=== PATIENT | female | born 1965 | race Hispanic/Latino ===

== ENCOUNTER 2018-10-20 14:38 | Inpatient (IN) | payer MEDICARE, OTHER ==
[~2018-10-20] VITALS: Ht 154.9 cm; Wt 140.6 kg
--- OUTSIDE RECORDS SUMMARY | 2018-10-20 15:04 | XMS REPORT ---
Author Author Maria Mayen Organization [employer] Address Unknown Phone Unavailable Care Team Providers Care Kettle Worker Name Role Phone Maria Mayen CP Unavailable Allergies No Known Allergies Problems Problem Type Condition Code Onset Dates Condition Status Problem BMI 50.0-59.9, adult Z68.43 Active Problem Vaginal yeast infection B37.3 Active Problem Anxiety F41.9 Active Problem PAD (peripheral artery disease) I73.9 Active Problem Anxiety and depression F41.8 Active Problem Poorly controlled diabetes mellitus E11.65 Active Problem Neuropathy G62.9 Active Problem Peripheral neuropathy G62.9 Active Problem Primary osteoarthritis of left hip M16.12 Active Problem Morbid obesity due to excess calories E66.01 Active Problem Hyperlipidemia, unspecified E78.5 Active Problem 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
--- OUTSIDE RECORDS SUMMARY | 2018-10-20 15:04 | XMS REPORT ---
Author Author Maria Mayen Organization [employer] Address Unknown Phone Unavailable Care Team Providers Care Panama Hat Blocker Name Role Phone Maria Mayen CP Unavailable [...]
--- OUTSIDE RECORDS SUMMARY | 2018-10-20 15:05 | XMS REPORT ---
Author Author Maria Mayen [facility] [place] eClinicalWorks Address Unknown Phone Unavailable Care Team Providers Care Manager Athletics Name Role Phone Maria Mayen CP Unavailable Encounters Encounter Location Date Unknown [place] Jan 26, 2016 3 MONTH F/U [place] Jan 20, 2016 Consult Sh[place] Cast[place] Mar 13, 2016 Unknown [place] Mar 26, 2016 Consult [place] November 30, 2015 Unknown [place] Jan 13, 2016 Unknown [place] Jan 13, 2016 walker [place] Apr 05, 2016 Unknown [place] Apr 20, 2016 Problems Problem Type Condition ICD-9 Code Onset Dates Condition Status Problem Essential (primary) hypertension I10 Active Problem Hyperlipidemia, unspecified E78.5 Active Problem Vaginal yeast infection B37.3 Active Problem Anxiety F41.9 Active Problem Peripheral neuropathy G62.9 Active Problem Incontinence in female N39.3 Active Problem 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.8 Active Problem JENNI (obstructive sleep apnea) G47.33 Active Problem BMI 50.0-59.9, adult Z68.43 Active Social History Social History Element Qualifiers Date Reported Use of recreational / street drugs? . Answer: No Apr 20, 2016 Sexual Hx: . Had sex in the last 12 months (vaginal, oral, or anal)?: No, Have you ever had an STD?: No Apr 20, 2016 Do you have pets? . Status: Yes, Type: dog(s) Apr 20, 2016 Tobacco Use: . Are you a: former smoker 2 YRS AGO Apr 20, 2016 Marital Status: . Single Apr 20, 2016 Caffeine intake? . Status: Yes, What type: Coffee, 1 - 2 cup(s) a day Apr 20, 2016 Do you exercise? . Answer: No Apr 20, 2016 Do you drink alcohol? . Status: No Apr 20, 2016 Travel outside [place]: . no Apr 20, 2016 Occupation: . disable Apr 20, 2016 Summary Purpose eClinicalWorks Submission
--- OUTSIDE RECORDS SUMMARY | 2018-10-20 15:05 | XMS REPORT ---
Author Author Maria Mayen [facility] e[employer]Works Address Unknown Phone Unavailable Care Team Providers Care Literary Writer Name Role Phone Maria Mayen CP Unavailable Allergies, Adverse Reactions, Alerts Substance Reaction Event Type N.K.D.A. Info Not Available Non Drug Allergy Encounters Encounter Location Date Unknown [place] Jan 26, 2016 3 MONTH F/U [place] Jan 20, 2016 Consult Sh[place] Mar 13, 2016 Consult Sh[place], [place] November 30, 2015 Unknown [place] Cast[place] Jan 13, 2016 Unknown [place] Jan 13, 2016 Problems Problem Type Condition ICD-9 Code Onset Dates Condition Status Assessment Primary osteoarthritis of left hip M16.12 Active Problem Essential (primary) hypertension I10 Active Problem Hyperlipidemia, unspecified E78.5 Active Problem Vaginal yeast infection B37.3 Active Problem Anxiety F41.9 Active Problem Peripheral neuropathy G62.9 Active Problem Incontinence in female N39.3 Active Problem 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.8 Active Problem JENNI (obstructive sleep apnea) G47.33 Active Problem BMI 50.0-59.9, adult Z68.43 Active Assessment Hyperlipidemia, unspecified E78.5 Active Assessment Essential (primary) hypertension I10 Active Assessment Peripheral neuropathy G62.9 Active Assessment Anxiety F41.9 Active Assessment 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.8 Active Medications Medication Code System Code Instructions Start Date End Date Status Dosage Sertraline HCl [facility] [address]-29 50 MG Orally Once a day Mar 13, 2016 Inactive 1 tablet Lisinopril [facility] [address]-72 5 MG Orally Once a day Jan 20, 2016 Active 1 tablet Simvastatin [facility] [address]-56 40 MG Orally Once a day Active 1 tablet in the evening Levemir [facility] [address]-05 100 UNIT/ML Subcutaneous 34 units BID Active as directed Pantoprazole Sodium [facility] [address]-50 40 mg Orally Once a day Jan 13, 2016 Active 1 tablet Januvia [facility] [address]-26 100 MG Orally Once a day Active 1 tablet Niacin [facility] 22384063450 500 Active TAKE 1 TABLET BY MOUTH EVERY DAY Canagliflozin [facility] [address]-31 100 mg Orally Once a day Jan 20, 2016 Mar 13, 2016 Inactive 1 tablet Acetaminophen-Codeine #3 [facility] [address]-23 300-30 MG Orally twice a day (bid) as needed (prn) Mar 13, 2016 Apr 12, 2016 Active 1 tablet as needed Sertraline HCl [facility] [address]-27 100 MG Orally Once a day Mar 13, 2016 Active 1 tablet Canagliflozin [facility] [address]-26 300 MG Orally Once a day Mar 13, 2016 Jun 11, 2016 Active 1 tablet NovoLog Flexpen [facility] [address]-18 100 UNIT/ML Subcutaneous three times a day (tid) Active as directed Calcium [facility] 59143-14399 600 MG Orally Twice a day Active 1 tablet with meals Ferrous Sulfate [facility] [address]-95 325 (65 Fe) MG Orally Once a day Active 1 tablet Hydrochlorothiazide [facility] [address]-03 12.5 MG Orally Once a day Mar 13, 2016 Active 1 tablet Gabapentin [facility] [address]-69 300 MG by mouth once every night Active 1 capsule Social History Social History Element Qualifiers Date Reported Use of recreational / street drugs? . Answer: No Mar 13, 2016 Sexual Hx: . Had sex in the last 12 months (vaginal, oral, or anal)?: No, Have you ever had an STD?: No Mar 13, 2016 Do you have pets? . Status: Yes, Type: dog(s) Mar 13, 2016 Tobacco Use: . Are you a: former smoker 2 YRS AGO Mar 13, 2016 Marital Status: . Single Mar 13, 2016 Caffeine intake? . Status: Yes, What type: Coffee, 1 - 2 cup(s) a day Mar 13, 2016 Do you exercise? . Answer: No Mar 13, 2016 Do you drink alcohol? . Status: No Mar 13, 2016 Travel outside [place]: . no Mar 13, 2016 Occupation: . disable Mar 13, 2016 Vital Signs Date/Time: Mar 13, 2016 Weight 293 lbs Height 62 in Temperature 97.2 F Blood Pressure Diastolic 74 mm Hg Blood Pressure Systolic 111 mm Hg Immunizations Vaccine Administration Date Influenza Mar 13, 2016 Summary Purpose eClinicalWorks Submission
--- OUTSIDE RECORDS SUMMARY | 2018-10-20 15:05 | XMS REPORT ---
Author Author Maria Mayen Organization [employer] Address Unknown Phone Unavailable Care Team Providers Care Provisioning Analyst Name Role Phone Maria Mayen CP Unavailable Allergies, Adverse Reactions, Alerts Substance Reaction Event Type N.K.D.A. Info Not Available Non Drug Allergy Encounters Encounter Location Date Unknown [facility] Jan 26, 2016 3 MONTH F/U [place] Jan 20, 2016 Consult Shaji Castell[place], [place] November 30, 2015 Unknown [place] Jan 13, 2016 Unknown [place] Jan 13, 2016 Problems Problem Type Condition ICD-9 Code Onset Dates Condition Status Assessment 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.8 Active Problem Essential (primary) hypertension I10 Active Problem Hyperlipidemia, unspecified E78.5 Active Problem Vaginal yeast infection B37.3 Active Problem Anxiety F41.9 Active Problem Peripheral neuropathy G62.9 Active Problem Incontinence in female N39.3 Active Problem 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.8 Active Problem JENNI (obstructive sleep apnea) G47.33 Active Problem BMI 50.0-59.9, adult Z68.43 Active Assessment Anxiety F41.9 Active Assessment BMI 50.0-59.9, adult Z68.43 Active Assessment Hyperlipidemia, unspecified E78.5 Active Assessment Essential (primary) hypertension I10 Active Medications Medication Code System Code Instructions Start Date End Date Status Dosage Ferrous Sulfate [facility] [address]-55 325 (65 Fe) MG Orally Once a day Active 1 tablet NovoLog Flexpen [facility] [address]-41 100 UNIT/ML Subcutaneous three times a day (tid) Active as directed Pantoprazole Sodium [facility] [address]-74 40 mg Orally Once a day Jan 13, 2016 Active 1 tablet Simvastatin [facility] [address]-09 40 MG Orally Once a day Active 1 tablet in the evening Lisinopril [facility] [address]-77 5 MG Orally Once a day Jan 20, 2016 Active 1 tablet Gabapentin [facility] [address]-37 300 MG by mouth once every night Active 1 capsule Levemir [facility] [address]-16 100 UNIT/ML Subcutaneous 34 units BID Active as directed Niacin [facility] 66853909293 500 Active TAKE 1 TABLET BY MOUTH EVERY DAY Fluconazole [facility] [address]-83 100 mg Orally once a day November 30, 2015 Feb 28, 2016 Active 1 tablet Sertraline HCl [facility] [address]-52 50 MG Orally Once a day Active 1 tablet Canagliflozin [facility] [address]-53 100 mg Orally Once a day Jan 20, 2016 Apr 19, 2016 Active 1 tablet Calcium [facility] 30330-11430 600 MG Orally Twice a day Active 1 tablet with meals Januvia [facility] [address]-54 100 MG Orally Once a day Active 1 tablet Social History Social History Element Qualifiers Date Reported Use of recreational / street drugs? . Answer: No Jan 20, 2016 Sexual Hx: . Had sex in the last 12 months (vaginal, oral, or anal)?: No, Have you ever had an STD?: No Jan 20, 2016 Do you have pets? . Status: Yes, Type: dog(s) Jan 20, 2016 Tobacco Use: . Are you a: former smoker 2 YRS AGO Jan 20, 2016 Marital Status: . Single Jan 20, 2016 Caffeine intake? . Status: Yes, What type: Coffee, 1 - 2 cup(s) a day Jan 20, 2016 Do you exercise? . Answer: No Jan 20, 2016 Do you drink alcohol? . Status: No Jan 20, 2016 Travel outside [place]: . no Jan 20, 2016 Occupation: . disable Jan 20, 2016 Vital Signs Date/Time: Jan 20, 2016 Weight 295 lbs Height 62 in Temperature 97.5 F Blood Pressure Diastolic 91 mm Hg Blood Pressure Systolic 134 mm Hg Summary Purpose eClinicalWorks Submission
--- OUTSIDE RECORDS SUMMARY | 2018-10-20 15:05 | XMS REPORT ---
Author Author Maria Mayen [facility] eClinicalWorks Address Unknown Phone Unavailable Care Team Providers Care Relationship Manager Name Role Phone Maria Mayen Unavailable Encounters Encounter Location Date Unknown Shaji [...] ICD-9 Code Onset Dates Condition Status Assessment Essential (primary) hypertension I10 Active Problem Essential (primary) hypertension I10 Active [...] 2016 Occupation: . disable Mar 13, 2016 Summary Purpose eClinicalWorks Submission
--- OUTSIDE RECORDS SUMMARY | 2018-10-20 15:05 | XMS REPORT ---
Author Author Maria Mayen [facility] eClinicalWorks Address Unknown Phone Unavailable Care Team Providers Care It Associate Name Role Phone Maria Mayen Unavailable Allergies, Adverse Reactions, Alerts Substance Reaction [...] [place] Cast[place], [place] Jan 13, 2016 3 Month Follow up Sh[facility] Cast[place], [place] Apr 20, 2016 walker Shaji Castell[place], [place] Apr 05, 2016 Unknown [facility], [place] Apr 20, 2016 New Refill Request Sh[place] Jul 06, 2016 New Refill Request Sh[place], [place] Jul 06, 2016 referral for my stomach Dr [place] Jun 20, 2016 New Refill Request [place] Jun 20, 2016 New Refill Request Sh[facility] Castell[place], [place] Jun 20, 2016 Unknown Shaji [place]ell[place] Jun 26, 2016 Sick Visit Shaji Castell[place], [place] May 22, 2016 Unknown Sh[place]ell[place] Jun 15, 2016 Sick Visit Shaji Castell[place], [place] Jul 19, 2016 Problems Problem Type Condition ICD-9 Code Onset Dates Condition Status Problem Essential (primary) hypertension I10 Active Problem Incontinence in female N39.3 Active Problem 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.8 Active Problem Neuropathy G62.9 Active Problem Peripheral neuropathy G62.9 Active Problem Morbid obesity due to excess calories E66.01 Active Problem JENNI (obstructive sleep apnea) G47.33 Active Problem BMI 50.0-59.9, adult Z68.43 Active Problem Vaginal yeast infection B37.3 Active Problem Anxiety F41.9 Active Assessment Fatty pancreas K86.89 Active Assessment Hyperlipidemia, unspecified E78.5 Active Assessment Essential (primary) hypertension I10 Active Assessment Morbid obesity due to excess calories E66.01 Active Assessment 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.8 Active Assessment JENNI (obstructive sleep apnea) G47.33 Active Problem Hyperlipidemia, unspecified E78.5 Active Medications Medication Code System Code Instructions Start Date End Date Status Dosage Hydrochlorothiazide [facility] 28982515635 12.5 MG Orally Once a day Active 1 tablet Gabapentin [facility] 76996762381 300 Active TAKE 1 CAPSULE BY MOUTH EVERY NIGHT NovoLog Flexpen [facility] [address]-95 100 UNIT/ML Subcutaneous TID as per sliding scale Apr 20, 2016 Active as directed Januvia [facility] [address]-51 100 MG Orally Once a day Active 1 tablet Sertraline HCl [facility] [address]-10 100 MG Orally Once a day Mar 13, 2016 Active 1 tablet Ibuprofen [facility] 15248316592 800 Active TAKE 1 TABLET BY MOUTH TWICE DAILY FOR 90 DAYS Invokana [facility] 61147298607 300 Orally Once a day Jan 15, 2017 Active take 1 tablet by mouth every day Lisinopril [facility] [address]-63 5 MG Orally Once a day Jan 20, 2016 Active 1 tablet Simvastatin [facility] [address]-15 40 MG Orally Once a day Active 1 tablet in the evening Levemir [facility] [address]-79 100 UNIT/ML Subcutaneous 34 units BID Active as directed Pantoprazole Sodium [facility] [address]-21 40 mg Orally Once a day Jan 13, 2016 Active 1 tablet Gabapentin [facility] [address]-14 300 MG by mouth twice a day (bid) Active 1 capsule Lisinopril [facility] 23879826238 5 Active TAKE 1 TABLET BY MOUTH DAILY Calcium [facility] 955[address]-47006 600 MG Orally Twice a day Active 1 tablet with meals Ferrous Sulfate [facility] [address]-26 325 (65 Fe) MG Orally Once a day Active 1 tablet Social History Social History Element Qualifiers Date Reported Use of recreational / street drugs? . Answer: No Jul 19, 2016 Sexual Hx: . Had sex in the last 12 months (vaginal, oral, or anal)?: No, Have you ever had an STD?: No Jul 19, 2016 Do you have pets? . Status: Yes, Type: dog(s) Jul 19, 2016 Tobacco Use: . Are you a: former smoker 2 YRS AGO Jul 19, 2016 Marital Status: . Single Jul 19, 2016 Caffeine intake? . Status: Yes, What type: Coffee, 1 - 2 cup(s) a day Jul 19, 2016 Do you exercise? . Answer: No Jul 19, 2016 Do you drink alcohol? . Status: No Jul 19, 2016 Travel outside [place]: . no Jul 19, 2016 Occupation: . disable Jul 19, 2016 Family history Qualifier Description Comment Date Reported Maternal Grandmother Comment not available Jul 19, 2016 Paternal Grandmother Comment not available Jul 19, 2016 Children Comment not available Jul 19, 2016 Maternal Grandfather Comment not available Jul 19, 2016 Father accident Jul 19, 2016 Brother(s) alive Comment not available Jul 19, 2016 Mother aspirated on potassium pill Jul 19, 2016 Paternal Grandfather Comment not available Jul 19, 2016 Sister(s) alive cervical cancer, uterine cancer Jul 19, 2016 Other: Comment not available Jul 19, 2016 General Family History Comment not available Jul 19, 2016 Vital Signs Date/Time: Jul 19, 2016 Weight 304 lbs Height 62 in Temperature 96.8 F Blood Pressure Diastolic 72 mm Hg Blood Pressure Systolic 119 mm Hg Summary Purpose eClinicalWorks Submission
--- OUTSIDE RECORDS SUMMARY | 2018-10-20 15:05 | XMS REPORT ---
Author Author Maria Mayen Organization eClinicalWorks Address Unknown Phone Unavailable Care Team Providers Care Layout Operator Name Role Phone Maria Mayen CP Unavailable Encounters Encounter Location Date Consult [facility] [place], [place] November 30, 2015 Unknown [facility] [place] Jan 13, 2016 Problems Problem Type Condition ICD-9 Code Onset Dates Condition Status Problem Hyperlipidemia, unspecified E78.5 Active Problem Vaginal yeast infection B37.3 Active Problem JENNI (obstructive sleep apnea) G47.33 Active Problem Peripheral neuropathy G62.9 Active Problem 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.8 Active Problem Essential (primary) hypertension I10 Active Problem BMI 50.0-59.9, adult Z68.43 Active Problem Incontinence in female N39.3 Active Medications Medication Code System Code Instructions Start Date End Date Status Dosage Pantoprazole Sodium [facility] [address]-96 40 mg Orally Once a day Jan 13, 2016 Active 1 tablet Social History Social History Element Qualifiers Date Reported Use of recreational / street drugs? . Answer: No November 30, 2015 Sexual Hx: . Had sex in the last 12 months (vaginal, oral, or anal)?: No, Have you ever had an STD?: No November 30, 2015 Do you have pets? . Status: Yes, Type: dog(s) November 30, 2015 Tobacco Use: . Are you a: former smoker 2 YRS AGO November 30, 2015 Marital Status: . Single November 30, 2015 Caffeine intake? . Status: Yes, What type: Coffee, 1 - 2 cup(s) a day November 30, 2015 Do you exercise? . Answer: No November 30, 2015 Do you drink alcohol? . Status: No November 30, 2015 Travel outside [place]: . no November 30, 2015 Occupation: . disable November 30, 2015 Summary Purpose eClinicalWorks Submission
--- OUTSIDE RECORDS SUMMARY | 2018-10-20 15:05 | XMS REPORT ---
Author Author Maria Mayen [facility] [place] eClinicalWorks Address Unknown Phone Unavailable Care Team Providers Care Chef Saucier Name Role Phone Maria Mayen Unavailable Encounters [...] [place], [place] Apr 20, 2016 referral for [address] stomach Dr [place] Jun 20, 2016 New Refill Request Shaji Castellano MD, [place] Jun 20, 2016 Unknown Shaji Castellano [place], [place] Jun 26, 2016 Sick Visit Shaji Castellano MD, [place] May 22, 2016 Unknown Shaji Castellano [place], [place] Jun 15, 2016 Problems Problem Type Condition ICD-9 Code Onset Dates Condition Status Problem Hyperlipidemia, unspecified E78.5 Active Problem 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.8 Active Problem Essential (primary) hypertension I10 Active Problem Peripheral neuropathy G62.9 Active Problem Vaginal yeast infection B37.3 Active Problem Neuropathy G62.9 Active Problem BMI 50.0-59.9, adult Z68.43 Active Problem Incontinence in female N39.3 Active Problem Anxiety F41.9 Active Problem JENNI (obstructive sleep apnea) G47.33 Active Social History Social History Element Qualifiers Date Reported Use of recreational / street drugs? . Answer: No May 22, 2016 Sexual Hx: . Had sex in the last 12 months (vaginal, oral, or anal)?: No, Have you ever had an STD?: No May 22, 2016 Do you have pets? . Status: Yes, Type: dog(s) May 22, 2016 Tobacco Use: . Are you a: former smoker 2 YRS AGO May 22, 2016 Marital Status: . Single May 22, 2016 Caffeine intake? . Status: Yes, What type: Coffee, 1 - 2 cup(s) a day May 22, 2016 Do you exercise? . Answer: No May 22, 2016 Do you drink alcohol? . Status: No May 22, 2016 Travel outside [place]: . no May 22, 2016 Occupation: . disable May 22, 2016 Summary Purpose eClinicalWorks Submission
--- OUTSIDE RECORDS SUMMARY | 2018-10-20 15:05 | XMS REPORT ---
Author Author Maria Mayen Organization [employer] Address Unknown Phone Unavailable Care Team Providers Care Consumer Marketing Manager Name Role Phone Maria Mayen CP Unavailable Allergies, Adverse Reactions, Alerts Substance Reaction Event Type N.K.D.A. Info Not Available Non Drug Allergy Problems Problem Type Condition Code Onset Dates Condition Status Problem Vaginal yeast infection B37.3 Active Problem Neuropathy G62.9 Active Problem Peripheral neuropathy G62.9 Active Problem Psoriasis L40.9 Active Assessment Essential (primary) hypertension I10 Active Problem Poorly controlled diabetes mellitus E11.65 Active Assessment Hyperlipidemia, unspecified E78.5 Active Problem Seasonal allergic rhinitis due to pollen J30.1 Active Problem Primary osteoarthritis of left hip M16.12 Active Problem Morbid obesity due to excess calories E66.01 Active Problem PAD (peripheral artery disease) I73.9 Active Problem Anxiety and depression F41.8 Active Assessment Psoriasis L40.9 Active Problem Essential (primary) hypertension I10 Active Assessment 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.8 Active Assessment Seasonal allergic rhinitis due to pollen J30.1 Active Problem Incontinence in female N39.3 Active Problem JENNI (obstructive sleep apnea) G47.33 Active Problem Hyperlipidemia, unspecified E78.5 Active Problem BMI 50.0-59.9, adult Z68.43 Active Problem 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.8 Active Problem Anxiety F41.9 Active Medications Medication Code System Code Instructions Start Date End Date Status Dosage Sertraline HCl [facility] 15305860827 50 MG Active 1 TABLET ONCE A DAY ORALLY 90 DAYS NovoLog Flexpen ND 07792320781 100 UNIT/ML Subcutaneous TID as per sliding scale Apr 20, 2016 Active as directed BuPROPion HCl [facility] 56389925314 75 MG Orally twice a day (bid) Feb 27, 2017 Active 1 tablet Lisinopril [facility] 87182756087 5 MG Orally Once a day Jan 20, 2016 Active 1 tablet Januvia [facility] 87927369042 100 MG Orally daily Active 1 TABLET ONCE A DAY ORALLY 90 DAYS Pantoprazole Sodium [facility] 42366940515 40 mg Active 1 TABLET ONCE A DAY ORALLY 90 DAYS Ferrous Sulfate [facility] 24020586459 325 (65 Fe) MG Orally Once a day Active 1 tablet Sertraline HCl [facility] 16508107842 50 Active 1 TABLET ONCE A DAY ORALLY 90 DAYS Simvastatin [facility] 88066950426 40 Active TAKE 1 TABLET BY MOUTH EVERY DAY IN THE EVENING Humalog [facility] 83713112699 100 UNIT/ML Subcutaneous three times a day August 31, 2016 Active as directed Pantoprazole Sodium [facility] 54094125007 40 mg Orally Once a day Jan 13, 2016 Active 1 tablet Simvastatin [facility] 31145838857 40 MG Orally Once a day Active 1 tablet in the evening Invokana [facility] 53191569314 300 MG Orally Once a day Active 1 tablet Hydrochlorothiazide [facility] 04076687454 12.5 MG Orally Once a day Active 1 tablet Levemir [facility] 74153018670 100 UNIT/ML Subcutaneous 50 units BID Active as directed Gabapentin [facility] 18778385665 300 MG by mouth twice a day (bid) Active 1 capsule Calcium [facility] 67488898674 600 MG Orally Twice a day Active 1 tablet with meals Ibuprofen [facility] 35089593840 800 Active TAKE 1 TABLET BY MOUTH TWICE DAILY FOR 90 DAYS Vital Signs Date/Time: August 14, 2017 BMI 52.67 Index Weight 288 lbs Height 62 in Temperature 98.3 F Blood Pressure Diastolic 100 mm Hg Blood Pressure Systolic 156 mm Hg Results No Known Results Summary Purpose [employer] Submission
--- OUTSIDE RECORDS SUMMARY | 2018-10-20 15:05 | XMS REPORT ---
Author Author Maria Mayen [facility] e[employer] Address Unknown Phone Unavailable Care Team Providers Care Toe Closing Machine Tender Name Role Phone Maria Mayen Unavailable Encounters Encounter Location Date Unknown [facility] [place] Jan 26, 2016 3 MONTH F/U [facility] [place] Jan 20, 2016 Consult [facility] [place] Mar 13, 2016 Unknown [facility] [place] Mar 26, 2016 Consult [facility] [place] November 30, 2015 Sick Visit [facility] [place] [place] May 22, 2016 Unknown [facility] [place] Jan 13, 2016 Unknown [facility] [place] [place] Jun 15, 2016 Unknown [facility] Jan [...]
--- OUTSIDE RECORDS SUMMARY | 2018-10-20 15:05 | XMS REPORT ---
Author Author Maria Mayen Organization [employer] Address Unknown Phone Unavailable Care Team Providers Care Oil Field Operator Name Role Phone Maria Mayen CP Unavailable Allergies No Known Allergies Problems Problem Type Condition Code Onset Dates Condition Status Problem Essential (primary) hypertension I10 Active Problem Incontinence in female N39.3 Active Problem 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.8 Active Problem Hyperlipidemia, unspecified E78.5 Active Problem Neuropathy G62.9 Active Problem Peripheral neuropathy G62.9 Active Problem Morbid obesity due to excess calories E66.01 Active Problem JENNI (obstructive sleep apnea) G47.33 Active Problem BMI 50.0-59.9, adult Z68.43 Active Problem Vaginal yeast infection B37.3 Active Problem Anxiety F41.9 Active Medications Medication Code System Code Instructions Start Date End Date Status Dosage Humalog [facility] [address]-90 100 UNIT/ML Subcutaneous three times a day August 31, 2016 Active as directed Results No Known Results Summary Purpose [employer]Works Submission
--- OUTSIDE RECORDS SUMMARY | 2018-10-20 15:05 | XMS REPORT ---
Author Author Maria Mayen Organization [employer] Address Unknown Phone Unavailable Care Team Providers Care Oncology Specialist Name Role Phone Maria Mayen CP Unavailable [...] Active Problem Incontinence in female N39.3 Active Social History Social History Element Qualifiers [...]
--- OUTSIDE RECORDS SUMMARY | 2018-10-20 15:05 | XMS REPORT ---
Author Author Maria Mayen Organization [employer] Address Unknown Phone Unavailable Care Team Providers Care News Library Director Name Role Phone Maria Mayen CP Unavailable Allergies, Adverse Reactions, Alerts Substance Reaction Event Type N.K.D.A. Info Not Available Non Drug Allergy Encounters Encounter Location Date Consult [facility] November 30, 2015 Problems Problem Type Condition ICD-9 Code Onset Dates Condition Status Assessment Essential (primary) hypertension I10 Active Problem Hyperlipidemia, unspecified E78.5 Active Assessment 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.8 Active Assessment Vaginal yeast infection B37.3 Active Assessment Peripheral neuropathy G62.9 Active Problem Vaginal yeast [...] Instructions Start Date End Date Status Dosage Gabapentin [facility] [address]-49 300 MG by mouth once every night Active 1 capsule Sertraline HCl [facility] [address]-89 50 MG Orally Once a day Active 1 tablet Ibuprofen [facility] [address]-78 800 MG Orally twice a day (bid) November 30, 2015 Inactive 1 tablet Levemir [facility] [address]-77 100 UNIT/ML Subcutaneous 34 units BID Active as directed Fluconazole [facility] [address]-43 100 mg Orally once a day November 30, 2015 Feb 28, 2016 Active 1 tablet Simvastatin [facility] [address]-02 40 MG Orally Once a day Active 1 tablet in the evening Ferrous Sulfate [facility] [address]-05 325 (65 Fe) MG Orally Once a day Active 1 tablet Niacin [facility] 67746457040 500 Active TAKE 1 TABLET BY MOUTH EVERY DAY Calcium [facility] 97410-79058 600 MG Orally Twice a day Active 1 tablet with meals NovoLog Flexpen [facility] [address]-90 100 UNIT/ML Subcutaneous Active as directed Meloxicam [facility] [address]-55 15 MG Orally Once a day November 30, 2015 December 30, 2015 Active 1 tablet Januvia [facility] [address]-21 100 MG Orally Once a day Active [...] 2015 Occupation: . disable November 30, 2015 Vital Signs Date/Time: November 30, 2015 Weight 294 lbs Height 62 in Temperature 96.5 F Summary Purpose eClinicalWorks Submission
--- OUTSIDE RECORDS SUMMARY | 2018-10-20 15:05 | XMS REPORT ---
Author Author Maria Mayen Organization [employer] Address Unknown Phone Unavailable Care Team Providers Care Validation Manager Name Role Phone Maria Mayen CP Unavailable Encounters Encounter Location Date Unknown [facility] Jan 26, 2016 Consult Shaji Castellano [place], [place] [...] 2016 Occupation: . disable Jan 20, 2016 Summary Purpose [employer] Submission
--- OUTSIDE RECORDS SUMMARY | 2018-10-20 15:05 | XMS REPORT ---
Author Author Maria Mayen [facility] e[employer] Address Unknown Phone Unavailable Care Team Providers Care Leasing Consultant Name Role Phone Maria Mayen Unavailable Encounters [...] Jun 20, 2016 New Refill Request [facility] [place] Jun 20, 2016 Unknown Shaji [...] JENNI (obstructive sleep apnea) G47.33 Active Medications Medication Code System Code Instructions Start Date End Date Status Dosage Hydrochlorothiazide [facility] 65265229086 12.5 MG Orally Once a day Active [...]
--- OUTSIDE RECORDS SUMMARY | 2018-10-20 15:05 | XMS REPORT ---
Author Author Maria Mayen [facility] e[employer] Address Unknown Phone Unavailable Care Team Providers Care Retread Operator Name Role Phone Maria Mayen CP [...] Problem BMI 50.0-59.9, adult Z68.43 Active Assessment JENNI (obstructive sleep apnea) G47.33 Active Assessment Essential (primary) hypertension I10 Active Assessment Vaginal yeast infection B37.3 Active Assessment Peripheral neuropathy G62.9 Active Assessment BMI 50.0-59.9, adult Z68.43 Active Medications Medication Code System Code Instructions Start Date End Date Status Dosage Ferrous Sulfate [facility] [address]-86 325 (65 Fe) MG Orally Once a day Active 1 tablet Calcium [facility] 24483-32291 600 MG Orally Twice a day Active 1 tablet with meals Invokana [facility] 65800254136 300 Active TAKE 1 TABLET BY MOUTH EVERY DAY Canagliflozin [facility] [address]-32 300 MG Orally Once a day Mar 13, 2016 Jun 11, 2016 Active 1 tablet Lisinopril [facility] 54483322812 5 Orally Once a day Active 1 tablet Gabapentin [facility] [address]-80 300 MG by mouth once every night Active 1 capsule Ibuprofen [facility] 15642848845 800 Active TAKE 1 TABLET BY MOUTH TWICE DAILY FOR 90 DAYS Sertraline HCl [facility] [address]-93 100 MG Orally Once a day Mar 13, 2016 Active 1 tablet Pantoprazole Sodium [facility] [address]-59 40 mg Orally Once a day Jan 13, 2016 Active 1 tablet Simvastatin [facility] [address]-32 40 MG Orally Once a day Active 1 tablet in the evening NovoLog Flexpen [facility] [address]-64 100 UNIT/ML Subcutaneous three times a day (tid) Apr 20, 2016 Inactive as directed tree times a days as per sliding scale [facility]ia [facility] [address]-56 100 MG Orally Once a day Active 1 tablet Hydrochlorothiazide [facility] 78395869698 12.5 MG Orally Once a day Active 1 tablet NovoLog Flexpen [facility] [address]-80 100 UNIT/ML Subcutaneous TID as per sliding scale Apr 20, 2016 Active as directed Levemir [facility] [address]-47 100 UNIT/ML Subcutaneous 34 units BID Active as directed Lisinopril [facility] [address]-09 5 MG Orally Once a day Jan 20, 2016 Active 1 tablet Social History Social [...] 2016 Occupation: . disable Apr 20, 2016 Vital Signs Date/Time: Apr 20, 2016 Weight 290 lbs Height 62 in Temperature 97.6 F Blood Pressure Diastolic 71 mm Hg Blood Pressure Systolic 109 mm Hg Summary Purpose eClinicalWorks Submission
--- OUTSIDE RECORDS SUMMARY | 2018-10-20 15:05 | XMS REPORT ---
Author Author Maria Mayen [facility] [employer] Address Unknown Phone Unavailable Care Team Providers Care Executive Meeting Manager Name Role Phone Maria Mayen CP [...] Shaji Castellano [place], [place] Apr 05, 2016 Problems Problem Type Condition ICD-9 Code [...]
--- OUTSIDE RECORDS SUMMARY | 2018-10-20 15:05 | XMS REPORT ---
Author Author Maria Mayen [facility] [employer] Address Unknown Phone Unavailable Care Team Providers Care Quality Systems Engineer Name Role Phone Maria Mayen Unavailable Encounters [...] Castellano [place], [place] Jun 20, 2016 Unknown Shjai Castellano [place], [place] Jun 26, 2016 Sick [...]
--- OUTSIDE RECORDS SUMMARY | 2018-10-20 15:05 | XMS REPORT ---
Author Author Maria Mayen [facility] [employer] Address Unknown Phone Unavailable Care Team Providers Care Research Technician Name Role Phone Maria Mayen Unavailable Encounters [...] Instructions Start Date End Date Status Dosage Lisinopril [facility] 36631696116 5 Orally Once a day Active 1 [...]
--- OUTSIDE RECORDS SUMMARY | 2018-10-20 15:05 | XMS REPORT ---
Author Author Maria Mayen [facility] eClinicalWorks Address Unknown Phone Unavailable Care Team Providers Care Fur Plucker Name Role Phone Maria Mayen Unavailable Encounters [...] [facility] [place], [place] Apr 20, 2016 Unknown Shaji Castellano [place], [place] Aug 06, 2016 walker Shaji Castellano MD, [place] Apr [...] Instructions Start Date End Date Status Dosage Invokanubia [facility] 61915620554 300 Orally Once a day Jan 15, 2017 Active take 1 tablet by mouth every day Social History Social History Element Qualifiers Date [...] 2016 Occupation: . disable Jul 19, 2016 Summary Purpose eClinicalWorks Submission
--- OUTSIDE RECORDS SUMMARY | 2018-10-20 15:05 | XMS REPORT ---
Author Author Maria Mayen [facility] eClinical[employer] Address Unknown Phone Unavailable Care Team Providers Care Research Technologist Name Role Phone Maria Mayen Unavailable Encounters [...] Shaji Castellano [place], [place] Jun 20, 2016 Sick Visit Shaji Castellano MD, [place] [...]
--- OUTSIDE RECORDS SUMMARY | 2018-10-20 15:05 | XMS REPORT ---
Author Author Maria Mayen [facility] [employer]Works Address Unknown Phone Unavailable Care Team Providers Care Trade Analyst Name Role Phone Maria Mayen Unavailable Encounters [...]
--- OUTSIDE RECORDS SUMMARY | 2018-10-20 15:05 | XMS REPORT ---
Author Author Maria Mayen [facility] [employer] Address Unknown Phone Unavailable Care Team Providers Care Bleacher Pulp Name Role Phone Maria Mayen CP Unavailable [...] Problem JENNI (obstructive sleep apnea) G47.33 Active Assessment Pancreatic mass K86.9 Active Assessment Neuropathy G62.9 Active Assessment BMI 50.0-59.9, adult Z68.43 Active Assessment Accidental fall, subsequent encounter W19.XXXD Active Medications Medication Code System Code Instructions Start Date End Date Status Dosage Levemir [facility] [address]-10 100 UNIT/ML Subcutaneous 34 units BID Active as directed Pantoprazole Sodium [facility] [address]-04 40 mg Orally Once a day Jan 13, 2016 Active 1 tablet Invokana [facility] 05509547074 300 Active TAKE 1 TABLET BY MOUTH EVERY DAY Sertraline HCl [facility] [address]-92 100 MG Orally Once a day Mar 13, 2016 Active 1 tablet NovoLog Flexpen [facility] [address]-90 100 UNIT/ML Subcutaneous TID as per sliding scale Apr 20, 2016 Active as directed Canagliflozin [facility] [address]-63 300 MG Orally Once a day Mar 13, 2016 Jun 11, 2016 Active 1 tablet Ibuprofen [facility] 98609260300 800 Active TAKE 1 TABLET BY MOUTH TWICE DAILY FOR 90 DAYS Lisinopril [facility] 78224765744 5 Orally Once a day Active 1 tablet Tramadol HCl [facility] [address]-15 50 MG Orally twice a day (bid) as needed (prn) May 22, 2016 Jun 05, 2016 Active 1 tablet Gabapentin [facility] [address]-84 300 MG by mouth twice a day (bid) Active 1 capsule Calcium [facility] 14637-[address]10 600 MG Orally Twice a day Active 1 tablet with meals Januvia [facility] [address]-14 100 MG Orally Once a day Active 1 tablet Hydrochlorothiazide [facility] 25921162774 12.5 MG Orally Once a day Active 1 tablet Simvastatin [facility] [address]-43 40 MG Orally Once a day Active 1 tablet in the evening Ferrous Sulfate [facility] [address]-53 325 (65 Fe) MG Orally Once a day Active 1 tablet Lisinopril [facility] [address]-83 5 MG Orally Once a day Jan [...] 2016 Occupation: . disable May 22, 2016 Vital Signs Date/Time: May 22, 2016 Weight 296 lbs Height 62 in Temperature 97.6 F Blood Pressure Diastolic 85 mm Hg Blood Pressure Systolic 130 mm Hg Summary Purpose eClinicalWorks Submission
--- OUTSIDE RECORDS SUMMARY | 2018-10-20 15:06 | XMS REPORT | Summary of Care ---
Author Author Divya Ling R.N. Unknown Address [facility] Phone Unavailable Care Team Providers Care Surveillance Supervisor Name Role Phone ALINA GLASS M.D. Unavailable Unavailable Functional Status Name Dates Details Functional status health issues are not documented Status: Name Dates Details Cognitive status health issues are not documented Status: Problems Name Dates Details Active medical history not documented Status: Medications Name Dates Details Medications not documented Allergies and Adverse Reactions Name Dates Details Allergy history not documented Status: Procedures Procedure Dates Details Procedures not documented Immunization Name Dates Details Immunizations not documented Social History Name Dates Details Unknown if ever smoked Vital Signs Date Test Result Details No Known Vitals to report Results Date Description Value Details Results not documented Plan of Care Name Dates Details Planned Observations Planned Goals not documented Planned Encounters Bariatric Surgery Referral Instructions Name Dates Details Instructions not documented Encounters Appointment; ALINA GLASS M.D. Encounter Diagnosis: Problem not documented On: 18-Feb-2018 10:00
--- OUTSIDE RECORDS SUMMARY | 2018-10-20 15:06 | XMS REPORT ---
[facility] Address Unknown Phone Unavailable Care Team Providers Care Dance Studio Manager Name Role Phone Wood SU Unavailable Unavailable ELVIN AM Unavailable Unavailable Payers Payer Name Policy Type Policy Number Effective Date Expiration Date Problems This patient has no known problems. Allergies, Adverse Reactions, Alerts Allergy Name Allergy Type Status Severity Reaction(s) Onset Date Inactive Date Treating Clinician Comments No Known Allergies DA Active U 2018-07-29 00:00:00 No Known Allergies DA Active U 2018-06-12 00:00:00 No Known Allergies DA Active U 2016-03-02 00:00:00 Medications This patient has no known medications. Encounters Start Date/Time End Date/Time Encounter Type Admission Type Attending Clinicians Care Facility Care Department Encounter ID 2018-08-27 03:14:00 Inpatient [id number] 2018-09-20 12:53:00 2018-09-18 22:17:00 Inpatient [facility] [id number] Results Test Description Test Time Test Comments Text Results Atomic Results Result Comments B-TYPE NATRIURETIC PEPTIDE 2018-07-29 21:09:00 B-TYPE NATRIURETIC PEPTIDE (test code=BNP) 30.8 PG/ML 0-100 - CT ABD PELVIS [id number] 20:10:00 Name: MUNIR JOHNSON [facility] : 1965 Age/S: 52 / F [address] [place] [address] Unit #: [id number] Loc: [place] [address] Phys: Ashvin Bertrand DO Acct: [id number] Dis Date: Status: REG ER PHONE #: [phone] Exam Date: 07/29/20181943 FAX #: [phone] Reason: cirrhosis abd pain EXAMS: CPT CODE: [id number] CT ABD PELVIS W/CONT 23469 Procedure: CT Abdomen/Pelvis with IV Contrast. Clinical Indication: Upper abdominal pain, cirrhosis. Comparison: CT scan of the abdomen and pelvis 06/12/2018. TECHNIQUE: Sequential trans-axial images were obtained with a multi-detector helical CT after intravenous administration of 100 cc Isovue 300 iodinated contrast. Coronal and sagittal reconstructions were obtained. No oral contrast was used for the exam. Total CT radiation dose: MFV=537 mGy-cm FINDINGS: CT ABDOMEN WITH IV CONTRAST: VISUALIZED LUNG BASES: There is a small right pleural effusion. ABDOMINAL SOLID ORGANS: The liver demonstrates a somewhat nodular border suggesting cirrhosis. The gallbladder is somewhat contracted, limiting interpretation. The spleen is enlarged measuring 19.3 cm in length. The pancreas, adrenal glands and kidneys appear normal. NON-CONTRAST OPACIFIED STOMACH AND BOWEL: The noncontrast opacified stomach is grossly unremarkable. The non-contrast opacified loops of small bowel and colon t he abdomen appear grossly unremarkable on CT. The lack of orally administe red contrast material limits complete bowel evaluation. The appendix is surgically absent by report. PERITONEUM AND RETROPERITONEUM: T here are prominent gastrohepatic and tesfaye hepatis lymph nodes similar to the prior study. There is minimal free fluid in the abdomen, most pronoun nisha adjacent to the liver. There is minimal generalized anasarca. VASCULAR STRUCTURES: Calcific atherosclerosis involves the abdominal aorta. The portal vein appears patent. CT PELVIS WITH IV CONTRA ST: PERITONEUM AND EXTRAPERITONEAL REGIONS: The patient has had p revious hysterectomy. No pelvic mass is observed. BLADDER: The bladder appears unremarkable. OSSEOUS STRUCTURES: Degenerati ve change involves the thoracolumbar PAGE 1 Signed Re port (CONTINUED) Name: ELIZABETHMUNIR [facility] [place] : 1965 Age/S: 52 / F [address] Unit #: [id number] Loc: [place] 17 598 Phys: Ashvin Bertrand DO Acct: [id number] Dis Date: Status: REG ER PHONE #: [phone] Exam Date: 07/29/20181943 FAX #: [phone] Reason: cirrhosis abd pain EXAMS: CPT CODE: [id number] CT ABD PELVIS W/CONT 94255 <Continued> spine and hips. IMPRESSION: 1. Findings consistent with cirrhosis and portal hypertension. 2. Persistent prominent gastrohepatic and tesfaye hepatis lymph nodes. 3. Small right pleural effusion with minimal free fluid in the abdomen and minimal anasarca. 4. Previous appendectomy and hysterectomy. 5. Calcific atherosclerosis. 6. Degenerative change. SL: [id number] at 2009 Reported and signed by: Angel Mac M.D. CC: Ashvin Bertrand DO Technologist:Umm Pillai RT(R) CTDI: DLP: Trnscb Date/Time: 07/29/2018 (2009) AurelianoTDO Orig Print D/T: S: 07/29/2018 (2012) CTDI: DLP: PAGE 2 Signed Report URINALYSIS [id number] 19:37:00* Test Item Value Reference Range Comments UA COLOR (test code=COLU) YELLOW YEL/STRAW UA APPEARANCE (test code=APPU) CLEAR CLEAR UA GLUCOSE DIPSTICK (test code=DGLUU) NEGATIVE NEGATIVE UA BILIRUBIN DIPSTICK (test code=BILU) NEGATIVE NEGATIVE UA KETONE DIPSTICK (test code=KETU) NEGATIVE NEGATIVE UA SPECIFIC GRAVITY (test code=SGU) 1.016 1.005-1.030 UA BLOOD DIPSTICK (test code=NORA) NEGATIVE NEGATIVE UA PH DIPSTICK (test code=PETRA) 5.0 5.0-7.0 UA PROTEIN DIPSTICK (test code=PROU) NEGATIVE NEGATIVE UA UROBILINIOGEN DIPSTICK (test code=URO) 0.2 mg/dL 0.2-1.0 UA NITRITE DIPSTICK (test code=MEME) NEGATIVE NEGATIVE UA LEUKOCYTE ESTERASE DIPSTICK (test code=LEUU) NEGATIVE NEGATIVE UA WBC (test code=WBCU) 0-3 WBC/HPF 0-3 UA RBC (test code=RBCU) 4-10 RBC/HPF 0-3 UA BACTERIA (test code=BACU) TRACE /HPF NONE SEEN UA SQUAMOUS CELLS (test code=SQU) 0-5 /HPF NONE SEEN UA HYALINE CAST (test code=HYALU) 3-5 /LPF NONE SEEN COMMENTS: Clean CatchCBC W/AUTO [id number] 19:36:00* Test Item Value Reference Range Comments WHITE BLOOD CELL (test code=WBC) 4.12 x10 3/uL 4.5-11.0 RED BLOOD CELL (test code=RBC) 4.94 x10 6/uL 3.54-5.02 HEMOGLOBIN (test code=HGB) 12.8 g/dL 11.0-15.0 HEMATOCRIT (test code=HCT) 40.9 % 33.0-45.0 MEAN CELL VOLUME (test code=MCV) 82.8 fL 81.0-99.0 MEAN CELL HGB (test code=MCH) 25.9 pg 27.0-33.0 MEAN CELL HGB CONCETRATION (test code=MCHC) 31.3 g/dL 33.0-37.0 RED CELL DISTRIBUTION WIDTH CV (test code=RDW) 16.5 % 11.5-14.5 RED CELL DISTRIBUTION WIDTH SD (test code=RDW-SD) 50.1 fL 37.0-54.0 PLATELET COUNT (test code=PLT) 138 x10 3/uL 150-400 MEAN PLATELET VOLUME (test code=MPV) 10.6 fL 7.0-9.0 NEUTROPHIL % (test code=NT%) 74.5 % 56.0-77.0 IMMATURE GRANULOCYTE % (test code=IG%) 0.2 % 0.0-2.0 LYMPHOCYTE % (test code=LY%) 13.6 % 14.0-32.0 MONOCYTE % (test code=MO%) 9.7 % 4.8-9.0 EOSINOPHIL % (test code=EO%) 1.5 % 0.3-3.7 BASOPHIL % (test code=BA%) 0.5 % 0.0-2.0 NUCLEATED RBC % (test code=NRBC%) 0.0 % 0-0 NEUTROPHIL # (test code=NT#) 3.07 x10 3/uL 2.0-7.6 IMMATURE GRANULOCYTE # (test code=IG#) 0.01 x10 3/uL 0.00-0.03 LYMPHOCYTE # (test code=LY#) 0.56 x10 3/uL 1.0-3.8 MONOCYTE # (test code=MO#) 0.40 x10 3/uL 0.1-0.8 EOSINOPHIL # (test code=EO#) 0.06 x10 3/uL 0.0-0.2 BASOPHIL # (test code=BA#) 0.02 x10 3/uL 0.0-0.2 NUCLEATED RBC # (test code=NRBC#) 0.00 x10 3/uL 0.0-0.1 MANUAL DIFF REQUIRED (test code=MDIFF) NO BASIC METABOLIC [id number] 19:30:00* Test Item Value Reference Range Comments SODIUM (test code=NA) 137 mEq/L 134-147 POTASSIUM (test code=K) 4.4 mEq/L 3.4-5.0 CHLORIDE (test code=CL) 106 mEq/L 100-108 CARBON DIOXIDE (test code=CO2) 28 mEq/L 21-33 ANION GAP (test code=GAP) 7 0-20 GLUCOSE (test code=GLU) 230 mg/dL 70-110 BLOOD UREA NITROGEN (test code=BUN) 18 mg/dL 7-18 GLOMERULAR FILTRATION RATE (test code=GFR) 75.9 90-95 Units of measure=ml/min/1.73 m2 CREATININE (test code=CREAT) 0.8 mg/dL 0.6-1.3 CALCIUM (test code=CA) 8.3 mg/dL 8.0-10.5 HEPATIC FUNCTION [id number] 19:30:00* Test Item Value Reference Range Comments TOTAL PROTEIN (test code=PROT) 6.4 g/dL 6.4-8.2 ALBUMIN (test code=ALB) 2.40 g/dL 3.4-5.0 BILIRUBIN TOTAL (test code=BILT) 0.50 mg/dL 0.0-1.0 BILIRUBIN DIRECT (test code=BILD) 0.20 MG/DL 0.0-0.30 BILIRUBIN INDIRECT (test code=BILIND) 0.30 MG/DL SGOT/AST (test code=AST) 31 IUnit/L 15-37 SGPT/ALT (test code=ALT) 31 IUnit/L 15-65 ALKALINE PHOSPHATASE TOTAL (test code=ALKP) 81 IUnit/L 20-125 [id number] 19:30:00* Test Item Value Reference Range Comments LIPASE (test code=LIP) 172 IUnit/L 73-393 [id number] 19:30:00* Test Item Value Reference Range Comments TROPONIN-I (test code=TROPI) < 0.015 ng/mL 0.000-0.045 Negative: <=0.045 Positive: >=0.046 Correlation with serial results, other cardiac markers andclinical findings is necessary to determine the clinicalsignificance of this result. Results using different methodologies should not be comparedto one another as quantitative results may vary by method. FINE NEEDLE ASPIRATION BY [id number] 10:13:00Medical Cytology Report Case: [id number] Authorizing Provider: Kobe Su MD Collected: 04/15/2018 1542 Ordering Location: [facility] Received: 04/15/2018 1626 Pathologist: Dory Bolivar Specimen: Pancreatic, Pancreatic head in CRR No fungal or mycobacterial like organisms are seen on the GMS and TATI stained sections of specimen.Addendum electronically signed by Dory Bolivar onne on 04/18/2018 at 10:13 AMPANCREAS HEAD MASS FNA BY CLINICIAN (CYTOSPINS AND CELL BLOCK OF ASPIRATE): - GRANULOMATOUS INFLAMMATION - NEGATIVE FOR MALIGNA NCY, SEE COMMENT Signing Pathologist Direct Phone Line: [phone] nically signed by Dory Bolivar on 04/16/2018 at 3:32 PMThe etiology for the granulomatous inflammation includes (but is not limited to) infectious etiol ogies (AFB and GMS ordered) and autoimmune (sarcoidosis). Clinical correlation i s recommended.Intradepartmental Consultation: Edgar Yates MD has reviewed the ca se and agrees with the findings.15852, 90659, 19982 X 2(2.8 X 2.9 cm) round mass in the pancreatic head PANCREAS HEAD MASS FNA37 mls in cytorich red; 4 cytospin s, cell blockCollected: [id number]: [id number] and cell block show gran ulomatous inflammation with surrounding fibrosis and scattered lymphocyted. No d uctal/acinar cells are seen. No malignant cells are seen. AFB and GMS are orde red and will be submitted in an addendum. The interpretation of this case includ ed the use of immunohistochemistry or special stains. Immunohistochemistry techn ical testing was performed at [facility], Pathology Wanda [place] where it was developed and its performance characteristics were determined. It has not been cleared or approved by the U.S. Food and Drug Administration. T he FDA has determined that such clearance or approval is not necessary. The test is used for clinical purposes. It should not be regarded as investigational or for research. This laboratory is certified under the Clinical Laboratory Improve ment Amendments of 1988 (CLIA-88) as qualified to perform high complexity clinic al laboratory testing.[facility], Department of Pathology, [address] [place] [address], [facility], Department of Pathology, [address] [place] [address], [facility], Department of [facility]ology, [address] [place] [address], BTPO NEEDLE ASPIRATION BY [id number] 10:11:00Medical Cytology Report Case: [id number] Authorizing Provider: Kobe Su MD Collected: 04/15/2018 1536 Ordering Location: [facility] Received: 04/15/2018 1623 Pathologist: Dory Bolivar Specimen: Pancreatic, Pancreatic neck in CRR No fungal or mycobacterial like organisms are seen on the GMS and TATI stained sections of specimen.Addendum electronically signed by Dory Bolivar on 04/18/2018 at 10:11 AMPANCREATIC NECK MASS FNA BY CLINICIAN (CYTOSPINS AND CELL BLOCK OF ASPIRATE): - GRANULOMATOUS INFLAMMATION - NEGATIVE FOR MALIGNANCY, SEE COMMENT Signing Pathologist Direct Phone Line: [phone] signed by Dory Bolivar on 04/16/2018 at 3:30 PMThe etiology for the granulomatous inflammation includes (but is not limited to) infectious etiologies (AFB and GMS ordered) and autoimmune (sarcoidosis). Clinical correlation is recommended.Intradepartmental Consultation: Edgar Yates MD has reviewed the case and agrees with the findings.37625, 79627, 48757 X2(1.2 x 1.0 cm) oval mass in the pancreatic neck PANCREATIC NECK MASS FNA25 mls in cytorich red; 4 cytospins, cell blockCollected: [id number]: [id number] and cell block show gr anulomatous inflammation with surrounding fibrosis and scattered lymphocyted. No ductal/acinar cells are seen. No malignant cells are seen. AFB and GMS are or dered and will be submitted in an addendum. The interpretation of this case incl uded the use of immunohistochemistry or special stains. Immunohistochemistry aditya hnical testing was performed at [facility], Pathology [facility] where it was developed and its performance characteristics were determine d. It has not been cleared or approved by the U.S. Food and Drug Administration. The FDA has determined that such clearance or approval is not necessary. The te st is used for clinical purposes. It should not be regarded as investigational o r for research. This laboratory is certified under the Clinical Laboratory Impro vement Amendments of 1988 (CLIA-88) as qualified to perform high complexity formerly [facility] ica laboratory testing.[facility], Department of Patholog y, [address] [place] [address], [facility], Department of Pathology, [address] [place] [address], Te l [phone] [facility], Department of Pathology, [address] [place] [address], ZSUK NEEDLE ASPIRATE (FNA) [id number] 18:00:00* Test Item Value Reference Range Comments CYTOLOGY RESULT POINTER (BEAKER) (test hldo=0229) See Separate Report FINE NEEDLE ASPIRATE (FNA) [id number] 18:00:00* Test Item Value Reference Range Comments CYTOLOGY RESULT POINTER (BEAKER) (test ztpf=4770) See Separate Report POCT-GLUCOSE [id number] 16:33:00* Test Item Value Reference Range Comments POC-GLUCOSE METER (BEAKER) (test mkhx=4662) 161 mg/dL 70-110 TESTED AT [facility] [address] [facility] [address] POCT-GLUCOSE [id number] 11:21:00* Test Item Value Reference Range Comments POC-GLUCOSE METER (BEAKER) (test nptn=7491) 228 mg/dL 70-110 TESTED AT [facility] [address] [facility] [address] FINE NEEDLE ASPIRATION BY [id number] 17:57:00Medical Cytology Report Case: [id number] Authorizing Provider: Elvin Ma MD Collected: 01/17/2017 0838 Ordering Location: [facility] Endoscopy Received: 01/17/2017 1451 Services Pathologist: Edgar Yates MD Specimen: Pancreas, Head Addendum is issued to report additional results. The original diagnosis remains the same.Results:AFB and GMS stains are negative for acid-fast bacilli and fungal elements.Intradepartmental consultation: Dr. Dai Simpson (hematopathologist) has been consulted on this case and concurs that no evidence of lymphoproliferative disorder is seen.Addendum electronically signed by Edgar Yates MD on 01/29/2017 at 5:57 PMHEAD OF PANCREAS MASS, FNA BY CLINICIAN (CYTOSPINS AND CELL BLOCK OF ASPIRATE): - NO MALIGNANT CELLS IDENTIFIED - PREDOMINANTLY LYMPHOID TISSUE WITH RARE MULTINUCLEATED GIANT CELLS (SEE COMMENT) Signing Pathologist Direct Phone Line: [phone] signed by Edgar Yates MD on 01/22/2017 at 6:53 PMCytospins show very rare clusters of epithelial cells with mild atypia, within the range of reactive changes, and b ackground lymphoid cells. Cell block sections show predominantly lymphoid and fi brous tissue, and rare multinucleated giant cells with inclusion in the cytoplas m consistent with asteroid body. Immunostains for CD20, CD3, CD68 show a mixture of B cells, T cells and macrophages. An immunostain for CAM5.2 highlights the b land gastrointestinal epithelial cells only. No diagnostic features of malignanc y are seen. Special stains are in progress for further evaluation. Clinical/radi ological correlation is recommended to determine whether the sampling is represe ntative of the index lesion.Deeper levels were examined.69727, 83337, 46608, 883 41 x 3, 16927 x 2(1.0 x 0.8 cm) hypoechoic oval mass identified in the head of p ancreasHEAD OF PANCREAS MASS FNACell block(A2) and 4 cytospins prepared from melany ple collected in 35 ml CytoRich Red fixativeCollected: [id number]: [id number] following special studies were performed on this case and the interpretation is incorporated in the diagnostic report above:The immunohistochemistry test was libby cortes and its performance characteristics determined by [facility], Pathology Laboratory. It has not been cleared or approved by the U.S. F ood and Drug Administration. The FDA has determined that such clearance or appro rosaline is not necessary. The test is used for clinical purposes. It should not be r egarded as investigational or for research. This laboratory is certified under t he Clinical Laboratory Improvement Amendments of 1988 (CLIA-88) as qualified to perform high complexity clinical laboratory testing.[facility] Kasie bucio, Department of Pathology, [address] [place] [address], [facility], Department of Pathology, [address] [place] [address], LEHY NEEDLE ASPIRATE (FNA) REQUEST 2017-01-17 16:01:00* Test Item Value Reference Range Comments CYTOLOGY RESULT POINTER (BEAKER) (test qzhc=8471) See Separate Report POCT-GLUCOSE [id number] 08:55:00* Test Item Value Reference Range Comments POC-GLUCOSE METER (BEAKER) (test emgb=2311) 223 mg/dL 70-110 TESTED AT [place] [address] POCT-GLUCOSE [id number] 07:55:00* Test Item Value Reference Range Comments POC-GLUCOSE METER (BEAKER) (test voen=9742) 251 mg/dL 70-110 TESTED AT [place] [address]
[2018-10-20 16:38] LABS: BILIRUBIN,URINE 1+ (NEGATIVE); CLARITY,URINE HAZY (CLEAR); COLOR,URINE YELLOW (YELLOW); KETONES,URINE 1+ (NEGATIVE); LEUKOCYTE ESTERASE ,URINE 1+ (NEGATIVE); NITRITE,URINE POSITIVE (NEGATIVE); PROTEIN,URINE DIPSTICK TRACE (NEGATIVE); URINE UROBILINOGEN 0.2 mg/dL (0.2 - 1)
[2018-10-20 16:51] LABS: BASOPHILS # (AUTO) 0.1 (0.0-0.1); BASOPHILS % 0.4 % (0.0-1.0); EOSINOPHILS % 0.2 % (0.0-6.0); HEMATOCRIT 37.3 % (34.2-44.1); HEMOGLOBIN 12.4 g/dL (12.0-16.0); LYMPHOCYTES # (AUTO) 0.6 (1.0-3.2); LYMPHOCYTES % 3.1 % (18.0-39.1); MEAN CORPUSCULAR HEMOGLOBIN 26.3 pg (28-32); MEAN CORPUSCULAR HGB CONC 33.2 g/dL (31-35); MEAN CORPUSCULAR VOLUME 79.2 fL (81-99); MONOCYTES # (AUTO) 1.4 (0.2-0.8); MONOCYTES % 7.4 % (4.4-11.3); NEUTROPHILS # (AUTO) 16.6 (2.1-6.9); NEUTROPHILS % 87.8 % (38.7-80.0); PLATELET COUNT 162 x10e3/uL (140-360); RED BLOOD COUNT 4.71 x10e6/uL (3.6-5.1); RED CELL DISTRIBUTION WIDTH 15.1 % (11.7-14.4)
[2018-10-20 16:52] LABS: BACTERIA,URINE MANY /HPF; EPITHELIAL CELLS,URINE FEW /LPF; RBC,URINE 0-5 /HPF (0-5)
[2018-10-20 17:10] LABS: ALBUMIN 2.3 g/dL (3.5-5.0); ALBUMIN/GLOBULIN RATIO 0.6 (0.8-2.0); ANION GAP 17.2 mmol/L (8-16); CALCIUM 8.5 mg/dL (8.4-10.2); CREATININE, SERUM 1.34 mg/dL (0.57-1.11); POTASSIUM 3.2 mmol/L (3.5-5.1)
[2018-10-20] MEDS ORDERED: SODIUM CHLORIDE 0.9% 1000ML 1,000 ML IV ONE (18:00)
[2018-10-20] MEDS ORDERED: ONDANSETRON HCL INJ 2MG/ML 2ML 2 MG/ML VIAL IV ONE (18:15)
[2018-10-20] MEDS ORDERED: MORPHINE SULFATE INJ 4 MG/ML INJ 1ML IV PRN (18:15)
[2018-10-20] MEDS ORDERED: DIPHENHYDRAMINE HCL INJ 50 MG/ML VIAL IV PRN (18:45)
[2018-10-20] MEDS ORDERED: IBUPROFEN 200 MG TAB PO PRN (18:45)
[2018-10-20] MEDS ORDERED: PIPER-TAZ 3.375 GM 50 ML IV SCH (18:45)
[2018-10-20] MEDS ORDERED: MORPHINE SULFATE 2 MG/ML SYR 1ML IV PRN (18:45)
[2018-10-20] MEDS ORDERED: ENALAPRILAT IV INJ 1.25 MG/ML VIAL IV PRN (18:45)
[2018-10-20] MEDS ORDERED: CLONIDINE HCL 0.1 MG TAB PO PRN (18:45)
[2018-10-20] MEDS ORDERED: ZOLPIDEM TARTRATE 5 MG TAB PO PRN (18:45)
--- NOTE | 2018-10-20 18:55 | NUR ---
Walking rounds with OMID Mccord. Patient in no distress at this time.
[2018-10-20] MEDS ORDERED: IBUPROFEN 400 MG TAB PO PRN (19:00)
[2018-10-20] MEDS ORDERED: IOPAMIDOL 370 MG/ML 200 ML INFUS..BTL INJ ONE (19:09)
[2018-10-20] MEDS ORDERED: SODIUM CHLORIDE 0.9% 50ML 50 ML ONE (19:09)
[2018-10-20] MEDS ORDERED: POTASSIUM CHLORIDE 20 MEQ TAB CR PO ONE ×2 (19:10→19:15)
--- NOTE | 2018-10-20 19:25 | Diagnostic Imaging Report ---
EXAMINATION: CT of the abdomen and pelvis with contrast. TECHNIQUE: Spiral CT images of the abdomen and pelvis were performed from the lung bases to the lesser trochanters after the intravenous administration of 100 cc of Isovue 370. Coronal and sagittal reformatted images were obtained. COMPARISON: None. CLINICAL HISTORY:53-year-old female with lower abdominal pain and diarrhea DISCUSSION: ABDOMEN/PELVIS: LOWER THORAX:Unremarkable. HEPATOBILIARY: No focal hepatic lesions. No intra or extrahepatic biliary ductal dilation. GALLBLADDER: No radio-opaque stones or sludge. No wall thickening. SPLEEN: No splenomegaly. PANCREAS: No focal masses or ductal dilatation. ADRENALS: No adrenal nodules. KIDNEYS/URETERS: No hydronephrosis, stones, or solid mass lesions. PELVIC ORGANS/BLADDER: The bladder is normal. PERITONEUM/RETROPERITONEUM: Mild stranding around the rectum, sigmoid colon and minimally around the descending colon . Small amount of free fluid in the abdomen. LYMPH NODES: Mildly prominent abdominal lymph nodes in the periaortic region and daily prominent nodes in the portal hilus region. VESSELS: The celiac trunk,superior and inferior mesenteric and bilateral renal arteries are patent The portal, superior mesenteric and splenic veins are patent. GI TRACT: No distention or wall thickening. BONES AND SOFT TISSUE: No bony destructive lesions. No soft tissue abnormalities. IMPRESSION: Mild colitis of involving the descending colon, sigmoid colon, and rectum with mild reactive fluid. No evidence of perforation or drainable fluid collection. Signed by: Kelvin Galdamez MD on 10/20/2018 7:22 PM
--- OUTSIDE RECORDS SUMMARY | 2018-10-20 19:45 | XMS REPORT | Clinical Summary ---
Author Author PAO [employer] [facility] [employer] Address Unknown Phone Unavailable Care Team Providers Care Licensed Prosthetist/Orthotist Name Role Phone Maria Mayen MD PCP Allergies No Known Allergies Medications End Date Status Medication Sig Dispensed Refills Start Date Active gabapentin (NEURONTIN) Take 300 mg 0 300 MG capsule by mouth 3 (three) times daily. Active hydrochlorothiazide Take 12.5 mg 0 (HYDRODIURIL) 12.5 MG by mouth tablet daily. Active ibuprofen (ADVIL,MOTRIN) Take 800 mg 0 800 MG tablet by mouth every 6 (six) hours as needed for Pain. Active canagliflozin (INVOKANA) Take 300 mg 0 300 mg tablet by mouth daily. Active sitaGLIPtin (JANUVIA) 100 Take 100 mg 0 MG tablet by mouth daily. Active insulin detemir (LEVEMIR) Inject 36 0 100 unit/mL injection Units subcutaneousl y 2 (two) times daily. Active lisinopril Take 5 mg by 0 (PRINIVIL,ZESTRIL) 5 MG mouth daily. tablet Active meloxicam (MOBIC) 15 MG Take 15 mg by 0 tablet mouth daily. Active insulin aspart (NOVOLOG) Inject 0 100 unit/mL InPn subcutaneousl y 3 (three) times daily with meals. Active pantoprazole (PROTONIX) Take 40 mg by 0 40 MG tablet mouth daily. Active sertraline (ZOLOFT) 100 Take 100 mg 0 MG tablet by mouth daily. Active simvastatin (ZOCOR) 40 MG Take 40 mg by 0 tablet mouth nightly. Active rifaximin 550 mg Tab Take 550 mg 0 by mouth 2 (two) times daily. Active insulin lispro (HUMALOG) Inject 0 100 unit/mL subcutaneousl injectionIndications: On y 3 (three) sliding scale times daily before meals. Active Problems No known active problems Encounters Care Team Description Date Type Specialty Reynaldo Koroma MD 04/15/2018 Anesthesia Gastroenterology Event Kobe Su MD UPPER ENDOSCOPY,FNA W/ULTRASOUND 04/15/2018 Surgery Gastroenterology Kobe Su MD 04/15/2018 Hospital Gastroenterology Encounter after 10/19/2017 Social History Date Tobacco Use Types Packs/Day Years Used Quit: 2013 Former Smoker 1 30 Alcohol Use Drinks/Week oz/Week Comments No Sex Assigned at Date Recorded Not on file Industry Job Start Date Occupation Not on file Not on file Not on file Travel End Travel History Travel Start No recent travel history available. Last Filed Vital Signs Time Taken Vital Sign Reading 04/15/2018 6:09 PM [employer] Blood Pressure 129/62 04/15/2018 6:09 PM [employer] Pulse 86 04/15/2018 6:09 PM [employer] WORK[employer] Temperature 37 C (98.6 F) 04/15/2018 6:09 PM [employer] WORK[employer] Respiratory Rate 18 04/15/2018 6:09 PM [employer] WORK[employer] Oxygen Saturation 96% - Inhaled Oxygen - Concentration 04/15/2018 10:40 AM [employer]WERY WORKER Weight 134.4 kg (296 lb 4.8 oz) 04/15/2018 10:40 AM [employer] WORK[employer] Height 154.9 cm (5' 1") 04/15/2018 10:40 AM [employer]WERY WORKER Body Mass Index 55.99 Plan of Treatment Not on file Procedures Comments Procedure Name Priority Date/Time Associated Diagnosis POCT-GLUCOSE METER Routine 04/15/2018 4:30 PM [employer]WERY WORKER REPORT OF PROCEDURE - 04/15/2018 ENDOSCOPY URL 3:48 PM BREWERY WORKER FINE NEEDLE ASPIRATE Routine 04/15/2018 (FNA) REQUEST 3:42 PM BREWERY WORKER FINE NEEDLE ASPIRATION BY AP Routine 04/15/2018 CLINICIAN 3:42 PM BREWERY WORKER FINE NEEDLE ASPIRATE Routine 04/15/2018 (FNA) REQUEST 3:36 PM BREWERY WORKER FINE NEEDLE ASPIRATION BY AP Routine 04/15/2018 CLINICIAN 3:36 PM BREWERY WORKER UPPER ENDOSCOPY,FNA 04/15/2018 Abnormal findings on W/ULTRASOUND 2:03 PM [employer] WORKER imaging test Special Needs ercp w/ fluoro and anes POCT-GLUCOSE METER Routine 04/15/2018 11:18 AM BREWERY WORKER after 10/19/2017 Results * POC-Glucose meter (04/15/2018 4:30 PM BREWERY WORKER) Only the most recent of 2 results within the time period is included. POC-Glucose Meter 161 (H)Comment: TESTED AT 70 - 110 mg/dL [facility] [address] [facility] [id number] Specimen Blood Performing Organization Address City/[facility] Cent[facility]ode Phone Number [facility] [address] [place], [place] [phone] [facility] * REPORT OF PROCEDURE - ENDOSCOPY URL (04/15/2018 3:48 PM BREWERY WORKER) Narrative Performed At * FINE NEEDLE ASPIRATE (FNA) REQUEST (04/15/2018 3:42 PM BREWERY WORKER) Only the most recent of 2 results within the time period is included. Cytology See Separate Report [facility] Specimen Fine Needle Aspirate Performing Organization Address City/[facility] Centercout Phone Number [facility] [address], [place] [phone] [facility] * Fine Needle Aspirate by Clinician (04/15/2018 3:42 PM BREWERY WORKER) Only the most recent of 2 results within the time period is included. Case Report Medical Cytology [facility] Report [facility] Case: [id number] Authorizing Provider:Kobe Su MDCollected: 04/15/2018 1542 Ordering Location: [facility] ENDOSCOPY SERVICESReceived: 04/15/2018 1626 Pathologist: Dory Bolivar Specimen:Pancreatic, Pancreatic head in CRR ADDENDUM No fungal or mycobacterial [facility] like organisms are seen on the [facility] GMS and TATI stained sections of specimen. DIAGNOSIS PANCREAS HEAD MASS FNA BY [facility] CLINICIAN (CYTOSPINS AND CELL [facility] BLOCK OF ASPIRATE): - GRANULOMATOUS INFLAMMATION - NEGATIVE FOR MALIGNANCY, SEE COMMENT Signing Pathologist Direct Phone Line: [phone] COMMENT The etiology for the [facility] granulomatous inflammation [facility] includes (but is not limited to) infectious etiologies (AFB and GMS ordered) and autoimmune (sarcoidosis). Clinical correlation is recommended. Intradepartmental Consultation: Edgar Yates MD has reviewed the case and agrees with the findings. CPT Code(s) 82397, 42308, 58303 X 2 [facility] CLINICAL DATA (2.8 X 2.9 cm) round mass in [facility] the pancreatic head [facility] SPECIMEN SOURCE PANCREAS HEAD MASS FNA [facility] GROSS DESCRIPTION 37 mls in cytorich red; 4 [facility] cytospins, cell block [facility] Collected: [id number] Received: [id number] MICROSCOPIC DESCRIPTION Cytospins and cell block show [facility] granulomatous inflammation [facility] with surrounding fibrosis and scattered lymphocyted. No ductal/acinar cells are seen. No malignant cells are seen. AFB and GMS are ordered and will be submitted in an addendum. SPECIAL STUDIES The interpretation of this [facility] case included the use of [facility] immunohistochemistry or special stains. Immunohistochemistry technical testing was performed at [facility], Pathology Laboratory where it was developed and its performance characteristics were determined. It has not been cleared or approved by the U.S. Food and Drug Administration. The FDA has determined that such clearance or approval is not necessary. The test is used for clinical purposes. It should not be regarded as investigational or for research. This laboratory is certified under the Clinical Laboratory Improvement Amendments of 1988 (CLIA-88) as qualified to perform high complexity clinical laboratory testing. Gross assessment was [facility] performed at [place], Department [facility] Pathology, [address] [place] [address], [place] [address], Technical component was [facility] performed at [place], Department [facility] Pathology, [address] [place] [address], [place] [address], Professional component [facility] was performed at [place], Department of [facility] Pathology, [address] [place] [address], [place] [address], Specimen Fine Needle Aspirate Narrative Performed At Performing Organization Address City/State/Zipcode Phone Number [facility] [address] [place] [address] [facility] after 10/19/2017 Insurance Payer Benefit Subscriber ID Type Phone Address Plan / Group [facility] xxxxxxxxx MEDICARE MGD CARE MEDICARE HMO
--- OUTSIDE RECORDS SUMMARY | 2018-10-20 19:46 | XMS REPORT ---
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 Active Assessment Poorly controlled diabetes mellitus E11.65 Active Problem Incontinence in female N39.3 Active Problem Essential (primary) hypertension I10 Active Problem JENNI (obstructive sleep apnea) G47.33 Active Medications Medication Code System Code Instructions Start Date End Date Status Dosage Humalog [facility] 82514528176 100 UNIT/ML Subcutaneous three times a day August 31, 2016 Active as directed BuPROPion HCl [facility] 10281631495 75 MG Orally twice a day (bid) Feb 27, 2017 Active 1 tablet Sertraline HCl [facility] 67489638506 50 MG Active 1 TABLET ONCE A DAY ORALLY 90 DAYS Ferrous Sulfate [facility] 43336384876 325 (65 Fe) MG Orally Once a day Active 1 tablet Simvastatin ND 34305508389 40 MG Orally Once a day Active 1 tablet in the evening Januvia [facility] 73468569704 100 MG Orally daily Active 1 TABLET ONCE A DAY ORALLY 90 DAYS Lisinopril ND 58233468475 5 MG Orally Once a day Jan 20, 2016 Active 1 tablet Gabapentin [facility] 50928467738 300 MG by mouth twice a day (bid) Active 1 capsule Levemir [facility] 84996553969 100 UNIT/ML Subcutaneous 50 units BID Active as directed NovoLog Flexpen [facility] 49371882334 100 UNIT/ML Subcutaneous TID as per sliding scale Apr 20, 2016 Active as directed Hydrochlorothiazide [facility] 83348943795 12.5 MG Orally Once a day Active 1 tablet Calcium [facility] 39968937477 600 MG Orally Twice a day Active 1 tablet with meals Pantoprazole Sodium [facility] 88453858364 40 mg Orally Once a day Jan 13, 2016 Active 1 tablet Ibuprofen [facility] 24452992149 800 Active TAKE 1 TABLET BY MOUTH TWICE DAILY FOR 90 DAYS Sertraline HCl [facility] 11539235174 50 Active 1 TABLET ONCE A DAY ORALLY 90 DAYS Invokana [facility] 40987583529 300 MG Orally Once a day Active 1 tablet Vital Signs Date/Time: May 15, 2017 BMI 53.04 Index Weight 290 lbs Height 62 in Temperature 96.9 F Blood Pressure Diastolic 85 mm Hg Blood Pressure Systolic 133 mm Hg Results No Known Results Summary Purpose [employer] Submission
--- OUTSIDE RECORDS SUMMARY | 2018-10-20 19:46 | XMS REPORT ---
Author Author Maria Mayen Organization [employer] Address Unknown Phone Unavailable Care Team Providers Care Towel Rolling Machine Operator Name Role Phone Maria Mayen CP [...]
--- OUTSIDE RECORDS SUMMARY | 2018-10-20 19:46 | XMS REPORT | Continuity of Care Document ---
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 Active Diagnosis 08/17/2017 Enayet Rahim BMI 50.0-59.9, adult Active Problem 08/17/2017 Enayet Rahim Incontinence in female Active Problem 08/17/2017 Enayet Rahim Hyperlipidemia, unspecified Active Diagnosis 08/17/2017 Enayet Rahim Essential hypertension Active Diagnosis 08/17/2017 Enayet Rahim Morbid obesity due to excess calories Active Problem 08/17/2017 Enayet Rahim Neuropathy Active Problem 08/17/2017 Enayet Rahim Primary osteoarthritis of left hip Active Problem 08/17/2017 Enayet Rahim Anxiety Active Problem 08/17/2017 Enayet Rahim JENNI Active Problem 08/17/2017 Enayet Rahim Peripheral neuropathy Active Problem 08/17/2017 Enayet Rahim Vaginal yeast infection Active Problem 08/17/2017 Enayet Rahim Type 2 diabetes mellitus with diabetic neuropathy, unspecified computer terminal operator insulin use status Active Problem 03/29/2017 [facility] Venous insufficiency Active Problem 03/29/2017 [facility] PAD Active Problem 08/17/2017 Enayet Rahim Anxiety and depression Active Problem 08/17/2017 Enayet Rahim Poorly controlled diabetes mellitus Active Problem 08/17/2017 Enayet Rahim Hemoglobin A1c greater than 9.0% Active Diagnosis 05/22/2017 Enayet Rahim Psoriasis Active Problem 08/17/2017 Enayet Rahim Seasonal allergic rhinitis due to pollen Active Problem 08/17/2017 Enayet Rahim Pancreatic mass Active Diagnosis 05/25/2016 Enayet Rahim Accidental fall, subsequent encounter Active Diagnosis 05/25/2016 Enayet Rahim Fatty pancreas Active Diagnosis 07/22/2016 Enayet Rahim Medications Medication Details Route Status Patient Instructions Ordering Provider Order Date Source Diflucan 1 tablet Orally Active 100 mg Orally daily [facility] 04/03/2017 Shaji Castellano BuPROPion HCl 1 tablet Orally Active 75 MG Orally twice a day (bid) [facility] 02/27/2017 Shaji Castellano Invokana take 1 tablet by mouth every day Orally Active 300 Orally Once a day [facility] 01/15/2017 Shaji Castellano Humalog as directed Subcutaneous Active 100 UNIT/ML Subcutaneous three times a day [facility] 08/31/2016 Shaji Castellano Humalog as directed Subcutaneous Active 100 UNIT/ML Subcutaneous three times a day [facility] 08/31/2016 Shaji Castellano Tramadol HCl 1 tablet Orally Active 50 MG Orally twice a day (bid) as needed (prn) [facility] 05/22/2016 Shaji Castellano NovoLog Flexpen as directed Subcutaneous Active 100 UNIT/ML Subcutaneous TID as per sliding scale [facility] 04/20/2016 Shaji Castellano NovoLog Flexpen as directed Subcutaneous Active 100 UNIT/ML Subcutaneous TID as per sliding scale [facility] 04/20/2016 Shaji Castellano Sertraline HCl 1 tablet Orally No Longer Active 50 MG Orally Once a day [facility] 03/13/2016 Shaji Castellano Acetaminophen-Codeine #3 1 tablet as needed Orally Active 300- 30 MG Orally twice a day (bid) as needed (prn) [facility] 03/13/2016 Shaji Castellano Sertraline HCl 1 tablet Orally Active 100 MG Orally Once a day [facility] 03/13/2016 Shaji Castellano Canagliflozin 1 tablet Orally Active 300 MG Orally Once a day [facility] 03/13/2016 Shaji Castellano Hydrochlorothiazide 1 tablet Orally Active 12.5 MG Orally Once a day [facility] 03/13/2016 Shaji Castellano Lisinopril 1 tablet Orally Active 5 MG Orally Once a day [facility] 01/20/2016 Shaji Castellano Lisinopril 1 tablet Orally Active 5 MG Orally Once a day [facility] 01/20/2016 Shaji Castellano Canagliflozin 1 tablet Orally No Longer Active 100 mg Orally Once a day [facility] 01/20/2016 Shaji Castellano Pantoprazole Sodium 1 tablet Orally Active 40 mg Orally Once a day [facility] 01/13/2016 Shaji Castellano Pantoprazole Sodium 1 tablet Orally Active 40 mg Orally Once a day [facility] 01/13/2016 [facility] Ibuprofen 1 tablet Orally No Longer Active 800 MG Orally twice a day (bid) [facility] 11/30/2015 Shaji [facility] Fluconazole 1 tablet Orally Active 100 mg Orally once a day [facility] 11/30/2015 Shaji [facility] Meloxicam 1 tablet Orally Active 15 MG Orally Once a day [facility] 11/30/2015 Shaji [facility] Januvia 1 TABLET ONCE A DAY ORALLY 90 DAYS Orally Active 100 MG Orally daily [facility] Sertraline HCl 1 TABLET ONCE A DAY ORALLY 90 DAYS NA Active 100 MG [facility]in[facility] 1 TABLET BY MOUTH EVERY DAY NA Active 5 [facility] Sertraline HCl TAKE 1 TABLET BY MOUTH EVERY DAY NA Active 100 [facility] Gabapentin 1 capsule by mouth Active 300 MG by mouth twice a day (bid) [facility] Pantoprazole Sodium TAKE 1 TABLET BY MOUTH EVERY DAY NA Active 40 [facility] Ferrous Sulfate 1 tablet Orally Active 325 (65 Fe) MG Orally Once a day [facility] Sertraline HCl 1 TABLET ONCE A DAY ORALLY 90 DAYS NA Active 50 [facility] Simvastatin TAKE 1 TABLET BY MOUTH EVERY DAY IN THE EVENING NA Active 40 [facility] Calcium 1 tablet with meals Orally Active 600 MG Orally Twice a day [facility] Ibuprofen TAKE 1 TABLET BY MOUTH TWICE DAILY FOR 90 DAYS NA Active 800 [facility] Hydrochlorothiazide 1 tablet Orally Active 12.5 Orally Once a day [facility] Sertraline HCl 1 TABLET ONCE A DAY ORALLY 90 DAYS NA Active 50 MG [facility] Simvastatin TAKE 1 TABLET BY MOUTH EVERY DAY IN THE EVENING NA Active 40 [facility] Hydrochlorothiazide 1 tablet Orally Active 12.5 MG Orally Once a day [facility] Gabapentin TAKE 1 CAPSULE BY MOUTH TWICE DAILY NA Active 300 [facility] Levemir as directed Subcutaneous Active 100 UNIT/ML Subcutaneous 50 units BID [facility] Invokana 1 tablet Orally Active 300 MG Orally Once a day [facility] Pantoprazole Sodium 1 TABLET ONCE A DAY ORALLY 90 DAYS NA Active 40 mg [facility] Gabapentin 1 capsule by mouth Active 300 MG by mouth twice a day (bid) [facility] Sertraline HCl 1 tablet Orally Active 50 MG Orally Once a day [facility]iar[facility] Levemir as directed Subcutaneous Active 100 UNIT/ML Subcutaneous 34 units BID Tiarra [facility] Simvastatin 1 tablet in the evening Orally Active 40 MG Orally Once a day Tiarra [facility] Ferrous Sulfate 1 tablet Orally Active 325 (65 Fe) MG Orally Once a day [facility] Niacin TAKE 1 TABLET BY MOUTH EVERY DAY NA Active 500 [facility] Calcium 1 tablet with meals Orally Active 600 MG Orally Twice a day [facility] NovoLog Flexpen as directed Subcutaneous Active 100 UNIT/ML Subcutaneous three times a day (tid) [facility] Januvia 1 tablet Orally Active 100 MG Orally Once a day [facility] Shaji Castellano Allergies, Adverse Reactions, Alerts Substance Category Reaction Severity Reaction type Status Date Reported Comments Source N.K.D.A. Adverse Reaction Info Not Available Adverse Reaction Active 08/14/2017 [facility] Immunizations Immunization Date Given Site Status Last Updated Comments Source Influenza 03/13/2016 completed [facility] Results Order Name Results Value Reference Range Date Interpretation Comments Source Vital Signs Vital Sign Value Date Comments Source Weight 288 08/14/2017 Enayet Rahim Height 62 08/14/2017 Enayet Rahim Temperature Oral (F) 98.3 F 08/14/2017 Enayet Rahim Diastolic (mm Hg) 100 08/14/2017 Enayet Rahim Systolic (mm Hg) 156 08/14/2017 Enayet Rahim Weight 290 05/15/2017 Enayet Rahim Height 62 05/15/2017 Enayet Rahim Temperature Oral (F) 96.9 F 05/15/2017 Enayet Rahim Diastolic (mm Hg) 85 05/15/2017 Enayet Rahim Systolic (mm Hg) 133 05/15/2017 Enayet Rahim Weight 295 04/03/2017 Enayet Rahim Height 62 04/03/2017 Enayet Rahim Temperature Oral (F) 95.8 F 04/03/2017 Enayet Rahim Diastolic (mm Hg) 67 04/03/2017 Enayet Rahim Systolic (mm Hg) 96 04/03/2017 Enayet Rahim Weight 290 02/27/2017 Enayet Rahim Height 62 02/27/2017 Enayet Rahim Temperature Oral (F) 98.8 F 02/27/2017 Enayet Rahim Diastolic (mm Hg) 75 02/27/2017 Enayet Rahim Systolic (mm Hg) 136 02/27/2017 Enayet Rahim Weight 304 07/19/2016 Enayet Rahim Height 62 07/19/2016 Enayet Rahim Temperature Oral (F) 96.8 F 07/19/2016 Enayet Rahim Diastolic (mm Hg) 72 07/19/2016 Enayet Rahim Systolic (mm Hg) 119 07/19/2016 Enayet Rahim Weight 296 05/22/2016 Enayet Rahim Height 62 05/22/2016 Enayet Rahim Temperature Oral (F) 97.6 F 05/22/2016 Enayet Rahim Diastolic (mm Hg) 85 05/22/2016 Enayet Rahim Systolic (mm Hg) 130 05/22/2016 Enayet Rahim Weight 290 04/20/2016 Enayet Rahim Height 62 04/20/2016 Enayet Rahim Temperature Oral (F) 97.6 F 04/20/2016 Enayet Rahim Diastolic (mm Hg) 71 04/20/2016 Enayet Rahim Systolic (mm Hg) 109 04/20/2016 Enayet Rahim Weight 293 03/13/2016 Enayet Rahim Height 62 03/13/2016 Enayet Rahim Temperature Oral (F) 97.2 F 03/13/2016 Enayet Rahim Diastolic (mm Hg) 74 03/13/2016 Enayet Rahim Systolic (mm Hg) 111 03/13/2016 Enayet Rahim Weight 295 01/20/2016 Enayet Rahim Height 62 01/20/2016 Enayet Rahim Temperature Oral (F) 97.5 F 01/20/2016 Enpastoraet Rahim Diastolic (mm Hg) 91 01/20/2016 Enpastoraet Rahim Systolic (mm Hg) 134 01/20/2016 [facility] Weight 294 11/30/2015 Enpastoraet Rahim Height 62 11/30/2015 [facility] Temperature Oral (F) 96.5 F 11/30/2015 Shaji Castellano Encounters Location Location Details Encounter Type Encounter Number Reason For Visit Attending Provider ADM Date DC Date Status Source Shaji Castellano MD, PA Consult [id number] 11/30/2015 11/30/2015 Shaji Castellano MD, PA Consult [id number] 11/30/2015 11/30/2015 Shaji Castellano MD, PA Consult [id number] 11/30/2015 11/30/2015 Shaji Castellano MD, [place] Consult [id number] 11/30/2015 11/30/2015 Shaji Castellano MD, PA Consult [id number] 11/30/2015 11/30/2015 Shaji Castellano MD, PA Consult [id number] 11/30/2015 11/30/2015 Shaji Castellano MD, PA Consult [id number] 11/30/2015 11/30/2015 Shaji Castellano MD, PA Consult [id number] 11/30/2015 11/30/2015 Shaji Castellano MD, PA Consult [id number] 11/30/2015 11/30/2015 Shaji Castellano MD, PA Consult [id number] 11/30/2015 11/30/2015 Shaji Castellano MD, PA Consult [id number] 11/30/2015 11/30/2015 Shaji Castellano MD, PA Consult [id number] 11/30/2015 11/30/2015 Shaji Castellano MD, PA Consult [id number] 11/30/2015 11/30/2015 Shaji Castellano MD, PA Consult [id number] 11/30/2015 11/30/2015 Shaji Castellano MD, PA Consult [id number] 11/30/2015 11/30/2015 Shaji Castellano MD, PA Consult [id number] 11/30/2015 11/30/2015 Shaji Castellano MD, PA Consult [id number] 11/30/2015 11/30/2015 Shaji Castellano MD, PA Consult [id number] 11/30/2015 11/30/2015 Shaji Castellano MD, PA Consult [id number] 11/30/2015 11/30/2015 Shaji Castellano MD, PA Consult [id number] 11/30/2015 11/30/2015 Shaji Castellano MD, PA Unknown [id number] 01/13/2016 01/13/2016 Sahji Castellano MD, PA Unknown [id number] 01/13/2016 01/13/2016 Shaji Castellano MD, PA Unknown [id number] 01/13/2016 01/13/2016 Shaji Castellano MD, [place] Unknown [id number] 01/13/2016 01/13/2016 Shaji Castellano MD, PA Unknown [id number] 01/13/2016 01/13/2016 Shaji Castellano MD, PA Unknown [id number] 01/13/2016 01/13/2016 Shaji Castellano MD, PA Unknown [id number] 01/13/2016 01/13/2016 Shaji Castellano MD, PA Unknown [id number] 01/13/2016 01/13/2016 Shaji Castellano MD, PA Unknown [id number] 01/13/2016 01/13/2016 Shaji Castellano MD, PA Unknown [id number] 01/13/2016 01/13/2016 Shaji Castellano MD, PA Unknown [id number] 01/13/2016 01/13/2016 Shaji Castellano MD, PA Unknown [id number] 01/13/2016 01/13/2016 Shaji Castellano MD, PA Unknown [id number] 01/13/2016 01/13/2016 Shaji Castellano MD, PA Unknown [id number] 01/13/2016 01/13/2016 Shaji Castellano MD, PA Unknown [id number] 01/13/2016 01/13/2016 Shaji Castellano MD, PA Unknown [id number] 01/13/2016 01/13/2016 Shaji Castellano MD, PA Unknown [id number] 01/13/2016 01/13/2016 Shaji Castellano MD, PA Unknown [id number] 01/13/2016 01/13/2016 Shaji Castellano MD, [place] Unknown [id number] 01/13/2016 01/13/2016 Shaji Castellano MD, PA Unknown [id number] 01/13/2016 01/13/2016 Shaji Castellano MD, PA Unknown [id number] 01/13/2016 01/13/2016 Shaji Castellano MD, PA Unknown [id number] 01/13/2016 01/13/2016 Shaji Castellano MD, PA Unknown [id number] 01/13/2016 01/13/2016 Shaji Castellano MD, PA Unknown [id number] 01/13/2016 01/13/2016 Shaji Castellano MD, PA Unknown [id number] 01/13/2016 01/13/2016 Shaji Castellano MD, PA Unknown [id number] 01/13/2016 01/13/2016 Shaji Castellano MD, PA Unknown [id number] 01/13/2016 01/13/2016 Shaji Castellano MD, [place] Unknown [id number] 01/13/2016 01/13/2016 Shaji Castellano MD, PA Unknown [id number] 01/13/2016 01/13/2016 Shaji Castellano MD, PA Unknown [id number] 01/13/2016 01/13/2016 Shaji Castellano MD, PA Unknown [id number] 01/13/2016 01/13/2016 Shaji Castellano MD, PA Unknown [id number] 01/13/2016 01/13/2016 Shaji Castellano MD, PA Unknown [id number] 01/13/2016 01/13/2016 Shaji Castellano MD, PA Unknown [id number] 01/13/2016 01/13/2016 Shaji Castellano MD, PA Unknown [id number] 01/13/2016 01/13/2016 Shaji Castellano MD, PA Unknown [id number] 01/13/2016 01/13/2016 Shaji Castellano MD, PA Unknown [id number] 01/13/2016 01/13/2016 Shaji Castellano MD, PA 3 MONTH F/U [id number] 01/20/2016 01/20/2016 Shaji Castellano MD, PA 3 MONTH F/U [id number] 01/20/2016 01/20/2016 Shaji Castellano MD, PA 3 MONTH F/U [id number] 01/20/2016 01/20/2016 Shaji Castellano MD, PA 3 MONTH F/U [id number] 01/20/2016 01/20/2016 Shaji Castellano MD, PA 3 MONTH F/U [id number] 01/20/2016 01/20/2016 Shaji Castellano MD, PA 3 MONTH F/U [id number] 01/20/2016 01/20/2016 Shaji Castellano MD, PA 3 MONTH F/U [id number] 01/20/2016 01/20/2016 Shaji Castellano MD, PA 3 MONTH F/U [id number] 01/20/2016 01/20/2016 Shaji Castellano MD, PA 3 MONTH F/U [id number] 01/20/2016 01/20/2016 Shaji Castellano MD, PA 3 MONTH F/U [id number] 01/20/2016 01/20/2016 Shaji Castellano MD, PA 3 MONTH F/U [id number] 01/20/2016 01/20/2016 Shaji Castellano MD, PA 3 MONTH F/U [id number] 01/20/2016 01/20/2016 Shaji Castellano MD, PA 3 MONTH F/U [id number] 01/20/2016 01/20/2016 Shaji Castellano MD, PA 3 MONTH F/U [id number] 01/20/2016 01/20/2016 Shaji Castellano MD, PA 3 MONTH F/U [id number] 01/20/2016 01/20/2016 Shaji Castellano MD, PA 3 MONTH F/U [id number] 01/20/2016 01/20/2016 Shaji Castellano MD, [facility] Unknown [id number] 01/26/2016 01/26/2016 Shaji Castellano MD, [facility] Unknown [id number] 01/26/2016 01/26/2016 Shaji [facility], [place] Unknown [id number] 01/26/2016 01/26/2016 Shaji Castellano MD, PA Unknown [id number] 01/26/2016 01/26/2016 Shaji Castellano MD, [facility] Unknown [id number] 01/26/2016 01/26/2016 Shaji Castellano MD, [facility] Unknown [id number] 01/26/2016 01/26/2016 Shaji Castellano MD, [place] Unknown [id number] 01/26/2016 01/26/2016 Shaji Castellano MD, [facility] Unknown [id number] 01/26/2016 01/26/2016 Shaji Castellano MD, [facility] Unknown [id number] 01/26/2016 01/26/2016 Shaji Castellano MD, [facility] Unknown [id number] 01/26/2016 01/26/2016 Shaji Castellano MD, PA Unknown [id number] 01/26/2016 01/26/2016 Shaji Castellano MD, PA Unknown [id number] 01/26/2016 01/26/2016 Shaji Castellano MD, PA Unknown [id number] 01/26/2016 01/26/2016 Shaji Castellano MD, PA Unknown [id number] 01/26/2016 01/26/2016 Shaji Castellano MD, PA Unknown [id number] 01/26/2016 01/26/2016 Shaji Castellano MD, [facility] Unknown [id number] 01/26/2016 01/26/2016 Shaji Castellano MD, PA Unknown [id number] 01/26/2016 01/26/2016 Shaji Castellano MD, [facility] Consult [id number] 03/13/2016 03/13/2016 Shaji Castell[facility] MD, [facility] Consult [id number] 03/13/2016 03/13/2016 Shaji Castellano MD, PA Consult [id number] 03/13/2016 03/13/2016 Shaji Castellano MD, PA Consult [id number] 03/13/2016 03/13/2016 Shaji Castell[facility] MD, [facility] Consult [id number] 03/13/2016 03/13/2016 Shjai Castellano MD, PA Consult [id number] 03/13/2016 03/13/2016 Shaji Castellano MD, PA Consult [id number] 03/13/2016 03/13/2016 Shaji Castellano MD, PA Consult [id number] 03/13/2016 03/13/2016 Shaji Castellano MD, PA Consult [id number] 03/13/2016 03/13/2016 Shaji Castellano MD, PA Consult [id number] 03/13/2016 03/13/2016 Shaji Castellano MD, PA Consult [id number] 03/13/2016 03/13/2016 Shaji Castellano MD, PA Consult [id number] 03/13/2016 03/13/2016 Shaji Castellano MD, PA Consult [id number] 03/13/2016 03/13/2016 Shaji Castellano MD, PA Consult [id number] 03/13/2016 03/13/2016 Shaji Castellano MD, PA Consult [id number] 03/13/2016 03/13/2016 Shaji Castellano MD, PA Unknown [id number] 03/26/2016 03/26/2016 Shaji Castellano MD, PA Unknown [id number] 03/26/2016 03/26/2016 Shaji Castellano MD, PA Unknown [id number] 03/26/2016 03/26/2016 Shaji Castellano MD, PA Unknown [id number] 03/26/2016 03/26/2016 Shaji Castellano MD, [facility] Unknown [id number] 03/26/2016 03/26/2016 Shaji Castellano MD, [facility] Unknown [id number] 03/26/2016 03/26/2016 Shaji Castellano MD, PA Unknown [id number] 03/26/2016 03/26/2016 Shaji Castellano MD, PA Unknown [id number] 03/26/2016 03/26/2016 Shaji Castellano MD, PA Unknown [id number] 03/26/2016 03/26/2016 Shaji Castellano MD, PA Unknown [id number] 03/26/2016 03/26/2016 Shaji Castellano MD, PA Unknown [id number] 03/26/2016 03/26/2016 Shaji Castellano MD, PA Unknown [id number] 03/26/2016 03/26/2016 Shaji Castellano MD, PA Unknown [id number] 03/26/2016 03/26/2016 Shaji Castellano MD, PA Unknown [id number] 03/26/2016 03/26/2016 Shaji Castellano MD, HUA velez [id number] 04/05/2016 04/05/2016 Shaji Castellano MD, HUA velez [id number] 04/05/2016 04/05/2016 Shaji Castellano MD, HUA velez [id number] 04/05/2016 04/05/2016 Shaji Castellano MD, HUA velez [id number] 04/05/2016 04/05/2016 Shaji Castellano MD, HUA velez [id number] 04/05/2016 04/05/2016 Shaji Castellano MD, HUA velez [id number] 04/05/2016 04/05/2016 Shaji Castellano MD, HUA velez [id number] 04/05/2016 04/05/2016 Shaji Castellano MD, HUA velez [id number] 04/05/2016 04/05/2016 Shaji Castellano MD, HUA velez [id number] 04/05/2016 04/05/2016 Shaji Castellano MD, HUA velez [id number] 04/05/2016 04/05/2016 Shaji Castellano MD, PA agustin [id number] 04/05/2016 04/05/2016 Shaji Castellano MD, HUA velez [id number] 04/05/2016 04/05/2016 Shaji Castellano MD, HUA velez [id number] 04/05/2016 04/05/2016 Shaji Castellano MD, PA 3 Month Follow up [id number] 04/20/2016 04/20/2016 Shaji Castellano MD, PA 3 Month Follow up [id number] 04/20/2016 04/20/2016 Shaji Castellano MD, PA 3 Month Follow up [id number] 04/20/2016 04/20/2016 Shaji Castellano MD, PA 3 Month Follow up [id number] 04/20/2016 04/20/2016 Shaji Castellano MD, PA 3 Month Follow up [id number] 04/20/2016 04/20/2016 Shaji Catsellano MD, PA 3 Month Follow up [id number] 04/20/2016 04/20/2016 Shaji Castellano MD, PA 3 Month Follow up [id number] 04/20/2016 04/20/2016 Shaji Castellano MD, PA 3 Month Follow up [id number] 04/20/2016 04/20/2016 Shaji Castellano MD, PA 3 Month Follow up [id number] 04/20/2016 04/20/2016 Shaji Castellano MD, PA 3 Month Follow up [id number] 04/20/2016 04/20/2016 Shaji Castellano MD, PA 3 Month Follow up [id number] 04/20/2016 04/20/2016 Shaji Castellano MD, PA Unknown [id number] 04/20/2016 04/20/2016 Shaji Castellano MD, PA Unknown [id number] 04/20/2016 04/20/2016 Shaji Castellano MD, PA Unknown [id number] 04/20/2016 04/20/2016 Shaji Castellano MD, PA Unknown [id number] 04/20/2016 04/20/2016 Shaji Castellano MD, PA Unknown [id number] 04/20/2016 04/20/2016 Shaji Castellano MD, PA Unknown [id number] 04/20/2016 04/20/2016 Shaji Castellano MD, PA Unknown [id number] 04/20/2016 04/20/2016 Shaji Castellano MD, PA Unknown [id number] 04/20/2016 04/20/2016 Shaji Castellano MD, PA Unknown [id number] 04/20/2016 04/20/2016 Shaji Castellano MD, PA Unknown [id number] 04/20/2016 04/20/2016 Shaji Castellano MD, PA Unknown [id number] 04/20/2016 04/20/2016 Shaji Castellano MD, PA Unknown [id number] 04/20/2016 04/20/2016 Shaji Castellano MD, PA Sick Visit [id number] 05/22/2016 05/22/2016 Shaji Castellano MD, PA Sick Visit [id number] 05/22/2016 05/22/2016 Shaji Castellano MD, PA Sick Visit [id number] 05/22/2016 05/22/2016 Shaji Castellano MD, PA Sick Visit [id number] 05/22/2016 05/22/2016 Shaji Castellano MD, PA Sick Visit [id number] 05/22/2016 05/22/2016 Shaji Castellano MD, PA Sick Visit [id number] 05/22/2016 05/22/2016 Shaji Castellano MD, PA Sick Visit [id number] 05/22/2016 05/22/2016 Shaji Castellano MD, PA Sick Visit [id number] 05/22/2016 05/22/2016 Shaji Castellano MD, PA Sick Visit [id number] 05/22/2016 05/22/2016 Shaji Castellano MD, PA Sick Visit [id number] 05/22/2016 05/22/2016 Shaji Castellano MD, PA Unknown [id number] 06/15/2016 06/15/2016 Shaji Castellano MD, PA Unknown [id number] 06/15/2016 06/15/2016 Shaji Castellano MD, PA Unknown [id number] 06/15/2016 06/15/2016 Shaji Castellano MD, PA Unknown [id number] 06/15/2016 06/15/2016 Shaji Castellano MD, PA Unknown [id number] 06/15/2016 06/15/2016 Shaji Castellano MD, PA Unknown [id number] 06/15/2016 06/15/2016 Shaji Castellano MD, PA Unknown [id number] 06/15/2016 06/15/2016 Shaji Castellano MD, PA Unknown [id number] 06/15/2016 06/15/2016 Shaji Castellano MD, PA Unknown [id number] 06/15/2016 06/15/2016 Shaji Castellano MD, PA New Refill Request [id number] 06/20/2016 06/20/2016 Shaji Castellano MD, PA New Refill Request [id number] 06/20/2016 06/20/2016 Shaji Castellano MD, PA New Refill Request [id number] 06/20/2016 06/20/2016 Shaji Castellano MD, PA New Refill Request [id number] 06/20/2016 06/20/2016 Shaji Castellano MD, PA New Refill Request [id number] 06/20/2016 06/20/2016 Shaji Castellano MD, PA New Refill Request [id number] 06/20/2016 06/20/2016 Shaji Castellano MD, PA New Refill Request [id number] 06/20/2016 06/20/2016 Shaji Castellano MD, PA New Refill Request [id number] 06/20/2016 06/20/2016 Shaji Castellano MD, PA New Refill Request [id number] 06/20/2016 06/20/2016 Shaji Castellano MD, PA New Refill Request [id number] 06/20/2016 06/20/2016 Shaji Castellano MD, PA New Refill Request [id number] 06/20/2016 06/20/2016 Shaji Castellano MD, PA New Refill Request [id number] 06/20/2016 06/20/2016 Shaji Castellano MD, PA New Refill Request [id number] 06/20/2016 06/20/2016 Shaji Castellano MD, PA referral for my stomach [id number] 06/20/2016 06/20/2016 Shaji Castellano MD, PA referral for my stomach [id number] 06/20/2016 06/20/2016 Shaji Castellano MD, PA referral for my stomach [id number] 06/20/2016 06/20/2016 Shaji Castellano MD, PA referral for my stomach [id number] 06/20/2016 06/20/2016 Shaji Castellano MD, PA referral for my stomach [id number] 06/20/2016 06/20/2016 Shaji Castellano MD, PA referral for my stomach [id number] 06/20/2016 06/20/2016 Shaji Castellano MD, PA referral for my stomach [id number] 06/20/2016 06/20/2016 Shaji Castellano MD, PA Unknown [id number] 06/26/2016 06/26/2016 Shaji Castellano MD, PA Unknown [id number] 06/26/2016 06/26/2016 Shaji Castellano MD, PA Unknown [id number] 06/26/2016 06/26/2016 Shaji Castellano MD, PA Unknown [id number] 06/26/2016 06/26/2016 Shaji Castellano MD, PA Unknown [id number] 06/26/2016 06/26/2016 Shaji Castellano MD, PA Unknown [id number] 06/26/2016 06/26/2016 Shaji Castellano MD, PA Unknown [id number] 06/26/2016 06/26/2016 Shaji Castellano MD, PA New Refill Request [id number] 07/06/2016 07/06/2016 Shaji Castellano MD, PA New Refill Request [id number] 07/06/2016 07/06/2016 Shaji Castellano MD, PA New Refill Request [id number] 07/06/2016 07/06/2016 Shaji Castellano MD, PA New Refill Request [id number] 07/06/2016 07/06/2016 Shaji Castellano MD, PA New Refill Request [id number] 07/06/2016 07/06/2016 Shaji Castellano MD, PA New Refill Request [id number] 07/06/2016 07/06/2016 Shaji Castellano MD, PA New Refill Request [id number] 07/06/2016 07/06/2016 Shaji Castellano MD, PA New Refill Request [id number] 07/06/2016 07/06/2016 Shaji Castellano MD, PA Sick Visit [id number] 07/19/2016 07/19/2016 Shaji Castellano MD, PA Sick Visit [id number] 07/19/2016 07/19/2016 Shaji Castellano MD, PA Unknown [id number] 08/06/2016 08/06/2016 Shaji Castellano Procedures Procedure Code Date Perfomer Comments Source
--- OUTSIDE RECORDS SUMMARY | 2018-10-20 19:46 | XMS REPORT ---
Author Author Morgan Geiger Organization [employer] Address Unknown Phone Unavailable Care Team Providers Care Pharmacy Informatics Specialist Name Role Phone Morgan Geiger CP Unavailable Allergies No Known Allergies Problems Problem Type Condition Code Onset Dates Condition Status Problem Type 2 diabetes mellitus with diabetic neuropathy, unspecified terminal operations manager insulin use status E11.40 Active Problem Venous insufficiency I87.2 Active Medications No Known Medications Results No Known Results Summary Purpose [employer] Submission
--- OUTSIDE RECORDS SUMMARY | 2018-10-20 19:46 | XMS REPORT ---
Author Author Maria Mayen [facility] [employer] Address Unknown Phone Unavailable Care Team Providers Care Air Traffic Coordinator Name Role Phone Maria Mayen CP Unavailable Allergies, Adverse Reactions, Alerts Substance Reaction Event Type N.K.D.A. Info Not Available Non Drug Allergy Problems Problem Type Condition Code Onset Dates Condition Status Problem JENNI (obstructive sleep apnea) G47.33 Active Problem Anxiety F41.9 Active Problem BMI 50.0-59.9, adult Z68.43 Active Problem Anxiety and depression F41.8 Active Assessment Vaginal yeast infection B37.3 Active Problem Primary osteoarthritis of left hip M16.12 Active Problem PAD (peripheral artery disease) I73.9 Active Problem Peripheral neuropathy G62.9 Active Problem Vaginal yeast infection B37.3 Active Problem Morbid obesity due to excess calories E66.01 Active Problem Neuropathy G62.9 Active Assessment JENNI (obstructive sleep apnea) G47.33 Active Assessment Hyperlipidemia, unspecified E78.5 Active Assessment PAD (peripheral artery disease) I73.9 Active Assessment Peripheral neuropathy G62.9 Active Problem Essential (primary) hypertension I10 Active Problem Hyperlipidemia, unspecified E78.5 Active Assessment Essential (primary) hypertension I10 Active Problem 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.8 Active Assessment 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.8 Active Problem Incontinence in female N39.3 Active Medications Medication Code System Code Instructions Start Date End Date Status Dosage Pantoprazole Sodium [facility] 16801633138 40 mg Orally Once a day Jan 13, 2016 Active 1 tablet Sertraline HCl [facility] 02222102384 100 MG Active 1 TABLET ONCE A DAY ORALLY 90 DAYS Humalog [facility] 02975544091 100 UNIT/ML Subcutaneous three times a day August 31, 2016 Active as directed Lisinopril [facility] 39099704706 5 Active TAKE 1 TABLET BY MOUTH EVERY DAY Sertraline HCl [facility] 90462459383 100 Active TAKE 1 TABLET BY MOUTH EVERY DAY Gabapentin ND 17412142077 300 MG by mouth twice a day (bid) Active 1 capsule Januvia [facility] 88794646496 100 MG Orally daily Active 1 TABLET ONCE A DAY ORALLY 90 DAYS Lisinopril ND 88965679522 5 MG Orally Once a day Jan 20, 2016 Active 1 tablet Pantoprazole Sodium [facility] 64071832014 40 Active TAKE 1 TABLET BY MOUTH EVERY DAY Ferrous Sulfate [facility] 23573599658 325 (65 Fe) MG Orally Once a day Active 1 tablet Sertraline HCl [facility] 19103448214 50 Active 1 TABLET ONCE A DAY ORALLY 90 DAYS Simvastatin [facility] 55826314146 40 MG Orally Once a day Active 1 tablet in the evening NovoLog Flexpen [facility] 61045775271 100 UNIT/ML Subcutaneous TID as per sliding scale Apr 20, 2016 Active as directed Calcium [facility] 11137437520 600 MG Orally Twice a day Active 1 tablet with meals BuPROPion HCl [facility] 81010948966 75 MG Orally twice a day (bid) Feb 27, 2017 Active 1 tablet Ibuprofen [facility] 47322464767 800 Active TAKE 1 TABLET BY MOUTH TWICE DAILY FOR 90 DAYS Hydrochlorothiazide [facility] 32317193517 12.5 Orally Once a day Active 1 tablet Diflucan [facility] 25306230061 100 mg Orally daily Apr 03, 2017 Apr 13, 2017 Active 1 tablet Sertraline HCl [facility] 68779397866 50 MG Active 1 TABLET ONCE A DAY ORALLY 90 DAYS Simvastatin [facility] 13141030645 40 Active TAKE 1 TABLET BY MOUTH EVERY DAY IN THE EVENING Hydrochlorothiazide [facility] 54085137739 12.5 MG Orally Once a day Active 1 tablet Gabapentin [facility] 95376024915 300 Active TAKE 1 CAPSULE BY MOUTH TWICE DAILY Levemir [facility] 22206046130 100 UNIT/ML Subcutaneous 40 units BID Active as directed Vital Signs Date/Time: Apr 03, 2017 BMI 53.95 Index Weight 295 lbs Height 62 in Temperature 95.8 F Blood Pressure Diastolic 67 mm Hg Blood Pressure Systolic 96 mm Hg Results No Known Results Summary Purpose [employer]ClinicalWorks Submission
--- OUTSIDE RECORDS SUMMARY | 2018-10-20 19:46 | XMS REPORT ---
Author Author Maria Mayen Organization [employer] Address Unknown Phone Unavailable Care Team Providers Care Centrifugal Casting Machine Tender Name Role Phone Maria Mayen CP Unavailable Allergies No Known Allergies Problems Problem Type Condition Code Onset Dates Condition Status Problem Incontinence in female N39.3 Active Problem BMI 50.0-59.9, adult Z68.43 Active Problem JENNI (obstructive sleep apnea) G47.33 Active Problem Primary osteoarthritis of left hip M16.12 Active Problem Morbid obesity due to excess calories E66.01 Active Problem Anxiety and depression F41.8 Active Problem Vaginal yeast infection B37.3 Active Problem Anxiety F41.9 Active Problem Neuropathy G62.9 Active Problem Peripheral neuropathy G62.9 Active Assessment 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.8 Active Problem Essential (primary) hypertension I10 Active Assessment Anxiety and depression F41.8 Active Problem Hyperlipidemia, unspecified E78.5 Active Assessment Essential (primary) hypertension I10 Active Problem 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.8 Active Medications Medication Code System Code Instructions Start Date End Date Status Dosage Ferrous Sulfate [facility] 71774946523 325 (65 Fe) MG Orally Once a day Active 1 tablet BuPROPion HCl [facility] 46873282030 75 MG Orally twice a day (bid) Feb 27, 2017 Active 1 tablet Levemir [facility] 77890942452 100 UNIT/ML Subcutaneous 34 units BID Active as directed Hydrochlorothiazide [facility] 81536711005 12.5 MG Orally Once a day Active 1 tablet Pantoprazole Sodium [facility] 45662980925 40 mg Orally Once a day Jan 13, 2016 Active 1 tablet Simvastatin [facility] 98077296026 40 Active TAKE 1 TABLET BY MOUTH EVERY DAY IN THE EVENING Hydrochlorothiazide [facility] 36774472389 12.5 Orally Once a day Active 1 tablet Calcium [facility] 83102997015 600 MG Orally Twice a day Active 1 tablet with meals NovoLog Flexpen ND 27479448937 100 UNIT/ML Subcutaneous TID as per sliding scale Apr 20, 2016 Active as directed Sertraline HCl [facility] 69200473626 100 Active TAKE 1 TABLET BY MOUTH EVERY DAY Lisinopril [facility] 44337052696 5 MG Orally Once a day Jan 20, 2016 Active 1 tablet Lisinopril [facility] 50093742775 5 Active TAKE 1 TABLET BY MOUTH EVERY DAY Gabapentin [facility] 80400068526 300 Active TAKE 1 CAPSULE BY MOUTH TWICE DAILY Humalog [facility] 99626767521 100 UNIT/ML Subcutaneous three times a day August 31, 2016 Active as directed Sertraline HCl [facility] 06960870230 100 MG Active 1 TABLET ONCE A DAY ORALLY 90 DAYS Gabapentin [facility] 34937884063 300 MG by mouth twice a day (bid) Active 1 capsule Januvia [facility] 55675430826 100 MG Orally daily Active 1 TABLET ONCE A DAY ORALLY 90 DAYS Pantoprazole Sodium [facility] 05009272973 40 Active TAKE 1 TABLET BY MOUTH EVERY DAY Sertraline HCl [facility] 64275708377 50 Active 1 TABLET ONCE A DAY ORALLY 90 DAYS Sertraline HCl [facility] 30012316576 50 MG Active 1 TABLET ONCE A DAY ORALLY 90 DAYS Simvastatin [facility] 24070559466 40 MG Orally Once a day Active 1 tablet in the evening Ibuprofen [facility] 55177174189 800 Active TAKE 1 TABLET BY MOUTH TWICE DAILY FOR 90 DAYS Vital Signs Date/Time: Feb 27, 2017 BMI 53.04 Index Weight 290 lbs Height 62 in Temperature 98.8 F Blood Pressure Diastolic 75 mm Hg Blood Pressure Systolic 136 mm Hg Results No Known Results Summary Purpose [employer]ClinicalWorks Submission
--- OUTSIDE RECORDS SUMMARY | 2018-10-20 19:46 | XMS REPORT ---
Author Author Maria Mayen Organization [employer] Address Unknown Phone Unavailable Care Team Providers Care Makeup Sales Advisor Name Role Phone Maria Mayen CP Unavailable Allergies No Known Allergies Problems Problem Type Condition Code Onset Dates Condition Status Problem 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.8 Active Problem BMI 50.0-59.9, adult Z68.43 Active Problem Incontinence in female N39.3 Active Problem Hyperlipidemia, unspecified E78.5 Active Problem Essential (primary) hypertension I10 Active Problem Morbid obesity due to excess calories E66.01 Active Problem Neuropathy G62.9 Active Problem Primary osteoarthritis of left hip M16.12 Active Problem Anxiety F41.9 Active Problem JENNI (obstructive sleep apnea) G47.33 Active Problem Peripheral neuropathy G62.9 Active Problem Vaginal yeast infection B37.3 Active Medications Medication Code System Code Instructions Start Date End Date Status Dosage Arlet [facility] 08793002315 100 MG Orally daily Active 1 TABLET ONCE A DAY ORALLY 90 DAYS Results No Known Results Summary Purpose [employer]Works Submission
--- OUTSIDE RECORDS SUMMARY | 2018-10-20 19:46 | XMS REPORT ---
Author Author Maria Mayen Organization [employer] Address Unknown Phone Unavailable Care Team Providers Care Rn Radiation Name Role Phone Maria Mayen CP Unavailable [...] Problem Vaginal yeast infection B37.3 Active Medications No Known Medications Results No Known Results Summary Purpose [employer]ClinicalWorks Submission
[2018-10-20] MEDS: ACETAMINOPHEN 325 MG TAB PO PRN (20:11)
[2018-10-20] MEDS ORDERED: INSULIN REGULAR, HUMAN 100 UNIT/1 ML 3ML VIAL IV ONE (20:15)
[2018-10-20] MEDS ORDERED: DEXTROSE 50% SYRINGE 50 ML IV PRN (20:15)
[2018-10-20] MEDS: LACTATED RINGER'S 1,000 ML IV SCH (20:23)
[2018-10-20] MEDS: METRONIDAZOLE 500MG/NS 100ML 100 ML IV SCH (20:23)
[2018-10-20] MEDS: INSULIN REGULAR, HUMAN 100 UNIT/1 ML 3ML VIAL SQ SCH (21:00)
[2018-10-20] MEDS ORDERED: INSULIN REGULAR, HUMAN 100 UNIT/1 ML 3ML VIAL ONE (21:02)
[2018-10-20 21:15] VITALS: BP 119/72
[2018-10-20] MEDS ORDERED: LEVEMIR100 UNIT/1 SQ (22:52)
[2018-10-20] MEDS ORDERED: HUMALOG100 UNIT/1 SQ (22:52)
[2018-10-20] MEDS ORDERED: VANCOMYCIN HCL500 MG PO (22:52)
[2018-10-20] MEDS ORDERED: METOPROLOL TART25 MG PO (22:52)
[2018-10-20] MEDS ORDERED: POTASSIUM CHLO20 ME1 PO (22:52)
[2018-10-20] MEDS ORDERED: GABAPENTIN400 MG PO (22:52)
[2018-10-20] MEDS ORDERED: FUROSEMIDE40 MG PO (22:52)
[2018-10-20] MEDS ORDERED: SPIRONOLACTONE25 MG PO (22:52)
[2018-10-20] MEDS ORDERED: SIMVASTATIN40 MG PO (22:52)
[2018-10-20] MEDS ORDERED: XIFAXAN550 MG PO (22:52)
[2018-10-20] MEDS ORDERED: PANTOPRAZOLE SO40 MG PO (22:52)
[2018-10-20] MEDS: MORPHINE SULFATE INJ 4 MG/ML INJ 1ML IV PRN (22:59)
[2018-10-20] MEDS: HYDROCODONE/APAP 7.5MG-325MG 1 EA TAB PO PRN (23:57)
--- NOTE | 2018-10-20 23:57 | NUR ---
PATIENT IN TEARS AND CRYING OF SEVERE ABDOMINAL PAIN. MEDICATED WITH NORCO 1TAB ORDERED, CALL LIGHT WITHIN EASY REACH. PRIMARY NURSE NOTIFIED THAT THE PATIENT WAS MEDICATED WITH NORCO FOR PAIN.
[2018-10-21] VITALS (8 sets, daily range): BP systolic 121–154; BP diastolic 64–82
[2018-10-21] MEDS ORDERED: METRONIDAZOLE 500MG/NS 100ML IV SCH
[2018-10-21] MEDS: ACETAMINOPHEN 325 MG TAB PO PRN (01:52)
[2018-10-21] MEDS: METRONIDAZOLE 500MG/NS 100ML 100 ML IV SCH ×3 (01:53→16:00)
[2018-10-21] MEDS: PIPER-TAZ 3.375 GM 50 ML IV SCH ×3 (03:21→20:21)
[2018-10-21] MEDS: MORPHINE SULFATE INJ 4 MG/ML INJ 1ML IV PRN ×4 (03:21→20:21)
[2018-10-21] MEDS: LACTATED RINGER'S 1,000 ML IV SCH (05:54)
[2018-10-21] MEDS: HYDROCODONE/APAP 7.5MG-325MG 1 EA TAB PO PRN ×2 (05:55→12:08)
[2018-10-21 06:07] LABS: ANION GAP 16.2 mmol/L (8-16); CALCIUM 8.2 mg/dL (8.4-10.2); CREATININE, SERUM 1.22 mg/dL (0.57-1.11); POTASSIUM 3.2 mmol/L (3.5-5.1)
[2018-10-21 06:11] LABS: BASOPHILS # (AUTO) 0.1 (0.0-0.1); BASOPHILS % 0.5 % (0.0-1.0); EOSINOPHILS # (AUTO) 0.1 (0.0-0.4); EOSINOPHILS % 0.2 % (0.0-6.0); HEMATOCRIT 34.8 % (34.2-44.1); HEMOGLOBIN 11.7 g/dL (12.0-16.0); LYMPHOCYTES # (AUTO) 0.7 (1.0-3.2); LYMPHOCYTES % 3.1 % (18.0-39.1); MEAN CORPUSCULAR HEMOGLOBIN 26.4 pg (28-32); MEAN CORPUSCULAR HGB CONC 33.6 g/dL (31-35); MEAN CORPUSCULAR VOLUME 78.4 fL (81-99); MONOCYTES # (AUTO) 1.8 (0.2-0.8); MONOCYTES % 8.4 % (4.4-11.3); NEUTROPHILS # (AUTO) 18.6 (2.1-6.9); NEUTROPHILS % 86.7 % (38.7-80.0); PLATELET COUNT 163 x10e3/uL (140-360); RED BLOOD COUNT 4.44 x10e6/uL (3.6-5.1); RED CELL DISTRIBUTION WIDTH 15.4 % (11.7-14.4)
--- NOTE | 2018-10-21 07:00 | NUR ---
RECEIVED BEDSIDE SHIFT CHANGE REPORT FROM STACY RN. PT DENIES NEEDS AT THIS TIME.
[2018-10-21] MEDS: INSULIN REGULAR, HUMAN 100 UNIT/1 ML 3ML VIAL SQ SCH ×4 (07:30→21:00)
[2018-10-21] MEDS: FAMOTIDINE 20 MG/2 ML VIAL IV SCH ×2 (08:35→16:18)
[2018-10-21] MEDS: ONDANSETRON HCL INJ 2MG/ML 2ML 2 MG/ML VIAL IV PRN (08:54)
[2018-10-21] MEDS ORDERED: POTASSIUM CHLORIDE 10MEQ/100ML 200 ML IV ONE (12:00)
--- NOTE | 2018-10-21 13:10 | NUR ---
Visit made by the Spiritual Care Department Pastoral Visitor, Leti South. Pt sleeping soundly and no family present. Pastoral Visitor left a card describing availability of account executive sales representative and instructions on how to contact a account executive sales representative. YECENIA THACKER Vice President Spiritual Care Department O: [phone] Pager: [phone] ([phone] number calling from)
--- NOTE | 2018-10-21 13:13 | NUR ---
WOUND CARE CONSULTATION - INITIAL EVALUATION Patient admitted from Home to ER for Abdominal pain, diarrhea for 4 days. DX: Colitis, Sepsis, UTI. Wound Care Consulted for Abdominal Redness Evaluation and Treatment. PATIENT VISIT: Pleasant 53 year old female. AAOX4. Calm states to feel better today. Verbalizes discomfort at abdominal folds. Unable to say how long rash has been there but states it comes and goes. States to use powders at home to help with moisture management. Reviewed hygiene habits at home and products used. Provided education for improved hygiene. Verbalized understanding. Presents with rash to abdominal fold, bilateral groin and Inner mid thigh folds. Breast folds intact, Armpits intact. No pressure ulcers identified. Darren Score 15 Alternating Pressure Air Mattress in place and set to patient current weight. IMPRESSION: Mid Abdominal Fold, Bilateral Groin and Thighs- Dermatologic Rash - Yeast RECOMMENDATION: Could benefit from Oral Diflucan. 1. Mid Abdominal Fold, Bilateral Groin and Thighs- Yeast - Wash area with mild soap and water then pat dry thoroughly. - Apply Nystatin Cream q12h and PRN Soiling. 2. Turn and reposition every 2 hours using turning clock schedule 3. Alternating Pressure Air Mattress and set to patient current weight. 4. HOB elevated no greater than 30 degrees as tolerated. 5. Continue Moderate PUP Protocol. 6. Offload heels with pillows while in bed. Thank you for consulting with Wound Care. Addendum: 10/21/18 at 1321 by Rey Zhong RN Amended: Links added.
[2018-10-21] MEDS: NYSTATIN 100,000 UNITS/GM CRM 30GM TUBE TOP SCH (13:30)
[2018-10-21 14:22] LABS: ANISOCYTOSIS SLIG; PLATELET ESTIMATE ADEQUATE; PLATELET MORPHOLOGY COMMENT NORMAL; POIKILOCYTOSIS SLIGHT; RBC MORPHOLOGY COMMENT NORMAL
--- NOTE | 2018-10-21 15:43 | NUR ---
CALLED DR HUDSON OFFICE, AND INFORMED PATIENT C DIFF POSITIVE
--- NOTE | 2018-10-21 19:00 | NUR ---
BEDSIDE SHIFT REPORT GIVEN TO WILDLIFE ENFORCEMENT MAJOR RN. PT DENIES NEEDS AT THIS TIME
[2018-10-21] MEDS: INSULIN GLARGINE 100 UNITS/ML VIAL SQ SCH (21:00)
[2018-10-21] MEDS: VANCOMYCIN 250MG/5ML ORAL SOLN PO SCH (21:55)
[2018-10-21] MEDS ORDERED: METRONIDAZOLE 500MG/NS 100ML 100 ML IV SCH (22:00)
[2018-10-22] VITALS (7 sets, daily range): BP systolic 122–152; BP diastolic 70–84
[2018-10-22] MEDS: MORPHINE SULFATE INJ 4 MG/ML INJ 1ML IV PRN ×4 (00:49→16:18)
[2018-10-22] MEDS: NYSTATIN 100,000 UNITS/GM CRM 30GM TUBE TOP SCH ×2 (01:57→12:20)
[2018-10-22] MEDS: PIPER-TAZ 3.375 GM 50 ML IV SCH (03:30)
[2018-10-22 05:47] LABS: BASOPHILS # (AUTO) 0.1 (0.0-0.1); BASOPHILS % 0.7 % (0.0-1.0); EOSINOPHILS # (AUTO) 0.1 (0.0-0.4); EOSINOPHILS % 0.5 % (0.0-6.0); HEMATOCRIT 34.8 % (34.2-44.1); HEMOGLOBIN 11.7 g/dL (12.0-16.0); LYMPHOCYTES # (AUTO) 0.6 (1.0-3.2); LYMPHOCYTES % 3.2 % (18.0-39.1); MEAN CORPUSCULAR HEMOGLOBIN 26.3 pg (28-32); MEAN CORPUSCULAR HGB CONC 33.6 g/dL (31-35); MEAN CORPUSCULAR VOLUME 78.2 fL (81-99); MONOCYTES # (AUTO) 1.6 (0.2-0.8); MONOCYTES % 8.3 % (4.4-11.3); NEUTROPHILS # (AUTO) 15.4 (2.1-6.9); NEUTROPHILS % 79.6 % (38.7-80.0); PLATELET COUNT 167 x10e3/uL (140-360); RED BLOOD COUNT 4.45 x10e6/uL (3.6-5.1); RED CELL DISTRIBUTION WIDTH 15.4 % (11.7-14.4)
[2018-10-22] MEDS: VANCOMYCIN 250MG/5ML ORAL SOLN PO SCH ×3 (06:04→21:07)
[2018-10-22 06:07] LABS: ANION GAP 14.1 mmol/L (8-16); CALCIUM 8.2 mg/dL (8.4-10.2); CREATININE, SERUM 1.08 mg/dL (0.57-1.11); POTASSIUM 3.1 mmol/L (3.5-5.1)
--- NOTE | 2018-10-22 06:48 | NUR ---
paged dr dey for k 3.1, awaiting call back.
[2018-10-22] MEDS ORDERED: CLINDAMYCIN PHOS 900MG/ 50ML 50 ML IV ONE (07:33)
[2018-10-22] MEDS ORDERED: POTASSIUM CHLORIDE 20 MEQ TAB CR PO NR ×2 (08:00→12:30)
--- NOTE | 2018-10-22 08:00 | NUR ---
aware of potassium 3.1. See orders
[2018-10-22] MEDS: INSULIN REGULAR, HUMAN 100 UNIT/1 ML 3ML VIAL SQ SCH ×4 (08:57→20:57)
[2018-10-22] MEDS: FAMOTIDINE 20 MG/2 ML VIAL IV SCH ×2 (08:58→16:18)
[2018-10-22] MEDS: ONDANSETRON HCL INJ 2MG/ML 2ML 2 MG/ML VIAL IV PRN ×2 (11:02→16:18)
[2018-10-22] MEDS ORDERED: POTASSIUM CHLORIDE 20 MEQ TAB CR PO PRN (11:30)
--- NOTE | 2018-10-22 11:32 | NUR ---
,S aware of HR 120s see orders
[2018-10-22] MEDS: METOPROLOL TARTRATE 25 MG TAB PO SCH (12:19)
[2018-10-22] MEDS: METRONIDAZOLE 500MG/NS 100ML 100 ML IV SCH ×2 (12:20→21:06)
[2018-10-22] MEDS: HYDROCODONE/APAP 7.5MG-325MG 1 EA TAB PO PRN (12:21)
--- NOTE | 2018-10-22 14:21 | NUR ---
CM SPOKE TO PATIENT AT BEDSIDE REGARDING IMM LETTER. IMM LETTER GIVEN WITH EXPLANATION BASED ON ANTICIPATED DISCHARGE DATE. ORIGINAL SIGNED AND PLACED IN CHART; COPY OF ORIGINAL DOCUMENT GIVEN TO PATIENT AT BEDSIDE AND PLACED IN CARE TRANSITION FOLDER. CM CONTACT INFORMATION GIVEN TO PATIENT FOR ANY NEEDS OR CONCERNS. PATIENT WITH NO FURTHER QUESTIONS.
[2018-10-22] MEDS: GABAPENTIN 400 MG CAP PO SCH ×2 (16:17→20:55)
[2018-10-22] MEDS: RIFAXIMIN 550 MG TABLET PO SCH (16:18)
--- NOTE | 2018-10-22 19:10 | NUR ---
Report given to oncoming nurse of patient's status. Assisted patient to bed, side rails upx2, call light within reach. No s/s of acute distress noted.
--- NOTE | 2018-10-22 19:46 | NUR ---
Received change of shift report from AM nurse. Walking rounds completed.
[2018-10-22] MEDS: SIMVASTATIN 40 MG TAB PO SCH (20:55)
[2018-10-22] MEDS: INSULIN GLARGINE 100 UNITS/ML VIAL SQ SCH (20:58)
--- NOTE | 2018-10-22 21:40 | Consultation ---
DATE OF CONSULTATION: 10/22/2018 REASON FOR CONSULTATION: Colitis. Recommendation of antibiotic. HISTORY OF PRESENT ILLNESS: This patient who is a 53-year-old female with history of obesity. She tells me she was in [place] recently back in June. She is not sure why, the patient apparently was there for a few days on antibiotic and discharged home. She is coming now with abdominal pain. Diarrhea started 4 days ago, not feeling well, fever, chills. The patient comes into the emergency room where she is being admitted. PAST MEDICAL HISTORY: The patient has a past medical history of lung disease, peptic ulcer disease, and obesity. PAST SURGICAL HISTORY: Appendectomy and hysterectomy. ALLERGIES: NKA. SOCIAL HISTORY: There is no smoking, drug abuse, alcohol abuse. FAMILY HISTORY: Noncontributory. REVIEW OF SYSTEMS: GENERAL: She is just not feeling well. HEENT: There is no headache, visual changes or hearing changes. GI: There is no nausea, no vomiting, but there is diarrhea. There is abdominal discomfort and abdominal pain mainly in the lower half. : There is no urgency or frequency. SKIN: There is no other rash. JOINTS: No erythema or edema. All other systems are within normal limit. PHYSICAL EXAMINATION: GENERAL: She is currently alert, oriented, does not seem to be in acute distress. VITAL SIGNS: Stable. Currently afebrile. Temperature 97.7, heart rate 130, respirations 19, blood pressure 143/84. HEENT: She is not icteric. Normocephalic. NECK: Supple. CHEST: Clear bilateral. HEART: S1 and S2. No S3, S4 or murmur. ABDOMEN: Soft. Diffuse discomfort. EXTREMITIES: No edema. SKIN: No rash. MEDICATIONS: Medication list is reviewed. She is on insulin, metronidazole, vancomycin p.o., nystatin, Zofran, Pepcid, insulin, Zocor, Protonix and clonidine. Her blood cultures are negative. Her white count on admission was 18.9, today is 19.3, hemoglobin is 11.7. Sodium 133, potassium 3.5, creatinine 1.08, glucose of 217. The C. difficile was positive. CT abdomen and pelvis shows colitis. PHYSICAL EXAMINATION: GENERAL: She is currently alert, oriented, does not seem to be in acute distress. VITAL SIGNS: Stable, currently afebrile as mentioned above. HEENT: Normocephalic, not icteric. NECK: Supple. No JVD. No lymphadenopathy. No thyromegaly. CHEST: Clear bilateral. HEART: S1 and S2. No S3, S4, or murmur. ABDOMEN: Soft. Diffuse discomfort. EXTREMITIES: No edema. SKIN: No rash. IMPRESSION: 1. I think the patient has C difficile colitis present on admission. She probably was on antibiotic back in June, but not so sure why. Agree with oral vancomycin for the time being. Plan on at least two weeks, clinically in terms of her diarrhea. Agree with IV fluid. Recheck CBC. Recheck Chem panel. We will keep in the hospital till WBC come down to normal and clinically better. Keep on IV Flagyl for the time being. 2. Morbidly obese. 3. Diabetes mellitus. We will follow with you. Thank you for asking me to see this patient. Discussed with the patient as well as the nursing team. MD ANGEL Beckett/MODL /[id number]
[2018-10-23] VITALS (7 sets, daily range): BP systolic 107–152; BP diastolic 55–81
[2018-10-23] MEDS: NYSTATIN 100,000 UNITS/GM CRM 30GM TUBE TOP SCH ×2 (01:30→11:44)
[2018-10-23] MEDS: METRONIDAZOLE 500MG/NS 100ML 100 ML IV SCH ×3 (05:21→21:49)
[2018-10-23] MEDS: VANCOMYCIN 250MG/5ML ORAL SOLN PO SCH ×3 (05:21→17:16)
[2018-10-23] MEDS: PANTOPRAZOLE SOD 40 MG TABEC PO SCH (05:21)
[2018-10-23 05:43] LABS: BASOPHILS # (AUTO) 0.2 (0.0-0.1); BASOPHILS % 0.9 % (0.0-1.0); EOSINOPHILS # (AUTO) 0.1 (0.0-0.4); EOSINOPHILS % 0.8 % (0.0-6.0); HEMATOCRIT 34.6 % (34.2-44.1); HEMOGLOBIN 11.2 g/dL (12.0-16.0); LYMPHOCYTES # (AUTO) 0.8 (1.0-3.2); LYMPHOCYTES % 4.8 % (18.0-39.1); MEAN CORPUSCULAR HGB CONC 32.4 g/dL (31-35); MEAN CORPUSCULAR VOLUME 80.5 fL (81-99); MONOCYTES # (AUTO) 1.9 (0.2-0.8); MONOCYTES % 11.2 % (4.4-11.3); NEUTROPHILS # (AUTO) 12.9 (2.1-6.9); NEUTROPHILS % 76.1 % (38.7-80.0); PLATELET COUNT 156 x10e3/uL (140-360); RED CELL DISTRIBUTION WIDTH 15.7 % (11.7-14.4)
--- NOTE | 2018-10-23 06:00 | NUR ---
Urine collected and sent to lab.
--- NOTE | 2018-10-23 06:02 | NUR ---
Urine colled via straight cath.
[2018-10-23 06:07] LABS: ANION GAP 12.5 mmol/L (8-16); BLOOD UREA NITROGEN 16 mg/dL (7-26); BUN/CREATININE RATIO 17 (6-25); CALCIUM 8.8 mg/dL (8.4-10.2); CARBON DIOXIDE 22 mmol/L (22-29); CHLORIDE 102 mmol/L (98-107); CREATININE, SERUM 0.96 mg/dL (0.57-1.11); EST GLOMERULAR FILTRATION RATE > 60 ML/MIN (60-); GLUCOSE 230 mg/dL (74-118); POTASSIUM 3.5 mmol/L (3.5-5.1); SODIUM 133 mmol/L (136-145)
--- NOTE | 2018-10-23 07:05 | NUR ---
Received patient semi fowlers position, side rails upx2, call light within reach. Resting with eyes closed. Arousable to verbal stimuli. Respirations even and unlabored. Dressing to Will continue to monitor.
[2018-10-23] MEDS: RIFAXIMIN 550 MG TABLET PO SCH ×2 (07:50→17:16)
[2018-10-23] MEDS: MORPHINE SULFATE INJ 4 MG/ML INJ 1ML IV PRN ×3 (07:50→22:08)
[2018-10-23] MEDS: FAMOTIDINE 20 MG/2 ML VIAL IV SCH ×2 (07:50→17:16)
[2018-10-23] MEDS: METOPROLOL TARTRATE 25 MG TAB PO SCH (07:50)
[2018-10-23] MEDS: SPIRONOLACTONE 25 MG TAB PO SCH (07:50)
[2018-10-23] MEDS: ONDANSETRON HCL INJ 2MG/ML 2ML 2 MG/ML VIAL IV PRN ×2 (07:50→17:16)
[2018-10-23] MEDS: GABAPENTIN 400 MG CAP PO SCH ×3 (07:50→21:48)
[2018-10-23] MEDS: INSULIN REGULAR, HUMAN 100 UNIT/1 ML 3ML VIAL SQ SCH ×4 (07:50→21:50)
[2018-10-23] MEDS: FUROSEMIDE 40 MG TAB PO SCH (07:50)
[2018-10-23] MEDS ORDERED: METOPROLOL TARTRATE 25 MG TAB PO SCH (09:00)
[2018-10-23 11:10] LABS: BAND NEUTROPHILS % (MANUAL) 3 %; LYMPHOCYTES % (MANUAL) 3 % (19-48); METAMYELOCYTES % (MANUAL) 4 % (0-0); MONOCYTES % (MANUAL) 8 % (3.4-9.0); NEUTROPHILS % (MANUAL) 79 % (40-74)
[2018-10-23 11:11] LABS: ANISOCYTOSIS SLIG; HYPOCHROMASIA SLIGHT; PLATELET ESTIMATE ADEQUATE; PLATELET MORPHOLOGY COMMENT NORMAL; POIKILOCYTOSIS SLIG; RBC MORPHOLOGY COMMENT NORMAL
[2018-10-23] MEDS ORDERED: SODIUM CHLORIDE 0.9% 250ML 250 ML ONE (11:31)
[2018-10-23] MEDS: HYDROCODONE/APAP 7.5MG-325MG 1 EA TAB PO PRN (11:44)
--- NOTE | 2018-10-23 19:03 | NUR ---
Report given to oncoming nurse of patient's status. Sitting on chair, call light within reach. No s/s of acute distress noted.
--- NOTE | 2018-10-23 20:00 | NUR ---
pt received. pt assessed. no ss of distress noted. pt co mid abd pain. discussed pain mngt poc. verbalized understanding. left hand 20g infiltrated. iv dc'd catheter tip intact, drsg applied to site. multiple attempt for second iv access. right ac 20g successful. will cont to follow poc. call francois within reach.
[2018-10-23] MEDS: SIMVASTATIN 40 MG TAB PO SCH (21:48)
[2018-10-23] MEDS: INSULIN GLARGINE 100 UNITS/ML VIAL SQ SCH (21:51)
[2018-10-24] VITALS (7 sets, daily range): BP systolic 96–133; BP diastolic 51–66
[2018-10-24] MEDS: NYSTATIN 100,000 UNITS/GM CRM 30GM TUBE TOP SCH ×2 (00:23→13:30)
[2018-10-24] MEDS: VANCOMYCIN 250MG/5ML ORAL SOLN PO SCH ×4 (00:25→16:55)
--- NOTE | 2018-10-24 04:19 | NUR ---
pt resting. no ss of distress noted. call francois within reach.
[2018-10-24 05:23] LABS: BASOPHILS # (AUTO) 0.1 (0.0-0.1); BASOPHILS % 0.9 % (0.0-1.0); EOSINOPHILS # (AUTO) 0.1 (0.0-0.4); EOSINOPHILS % 1.3 % (0.0-6.0); HEMATOCRIT 32.7 % (34.2-44.1); HEMOGLOBIN 10.6 g/dL (12.0-16.0); LYMPHOCYTES % 9.3 % (18.0-39.1); MEAN CORPUSCULAR HEMOGLOBIN 26.1 pg (28-32); MEAN CORPUSCULAR HGB CONC 32.4 g/dL (31-35); MEAN CORPUSCULAR VOLUME 80.5 fL (81-99); MONOCYTES # (AUTO) 1.6 (0.2-0.8); MONOCYTES % 14.2 % (4.4-11.3); NEUTROPHILS # (AUTO) 7.6 (2.1-6.9); NEUTROPHILS % 67.8 % (38.7-80.0); PLATELET COUNT 146 x10e3/uL (140-360); RED BLOOD COUNT 4.06 x10e6/uL (3.6-5.1); RED CELL DISTRIBUTION WIDTH 15.5 % (11.7-14.4)
[2018-10-24] MEDS: METRONIDAZOLE 500MG/NS 100ML 100 ML IV SCH ×3 (05:38→21:39)
[2018-10-24] MEDS: PANTOPRAZOLE SOD 40 MG TABEC PO SCH (05:39)
[2018-10-24] MEDS: MORPHINE SULFATE INJ 4 MG/ML INJ 1ML IV PRN ×2 (05:39→23:09)
[2018-10-24 05:45] LABS: ANION GAP 10.5 mmol/L (8-16); CALCIUM 7.9 mg/dL (8.4-10.2); CREATININE, SERUM 1.01 mg/dL (0.57-1.11); POTASSIUM 3.5 mmol/L (3.5-5.1)
[2018-10-24] MEDS: INSULIN REGULAR, HUMAN 100 UNIT/1 ML 3ML VIAL SQ SCH ×4 (07:30→21:40)
[2018-10-24] MEDS: FAMOTIDINE 20 MG/2 ML VIAL IV SCH ×2 (09:00→16:55)
[2018-10-24] MEDS: SPIRONOLACTONE 25 MG TAB PO SCH (09:00)
[2018-10-24] MEDS: RIFAXIMIN 550 MG TABLET PO SCH ×2 (09:00→16:55)
[2018-10-24] MEDS: METOPROLOL TARTRATE 25 MG TAB PO SCH (09:00)
[2018-10-24] MEDS: FUROSEMIDE 40 MG TAB PO SCH (09:00)
[2018-10-24] MEDS: GABAPENTIN 400 MG CAP PO SCH ×3 (09:00→21:39)
--- NOTE | 2018-10-24 12:00 | NUR ---
PAGED DR GUZMAN AND LEFT THE MESSAGE TO GET DISCHARGE ORDER
--- NOTE | 2018-10-24 15:20 | NUR ---
PAGED DR Val HUDSON TO GET THE DISCHARGE ORDER
--- NOTE | 2018-10-24 17:00 | NUR ---
DR HUDSON RETURNED CALL HE SAID PT IS NOT DISCHARGING TODAY
[2018-10-24] MEDS ORDERED: ONDANSETRON HCL 4 MG ORAL DISINTEGRATING TAB PO PRN (18:00)
--- NOTE | 2018-10-24 18:38 | NUR ---
PT RESTING ON BED BED SIDE REPORT GIVEN TO ONCOMING NURSE
[2018-10-24] MEDS: SIMVASTATIN 40 MG TAB PO SCH (21:39)
[2018-10-24] MEDS: INSULIN GLARGINE 100 UNITS/ML VIAL SQ SCH (21:40)
[2018-10-25] VITALS (9 sets, daily range): BP systolic 99–139; BP diastolic 55–76
[2018-10-25] MEDS: VANCOMYCIN 250MG/5ML ORAL SOLN PO SCH ×4 (00:29→17:07)
[2018-10-25] MEDS: NYSTATIN 100,000 UNITS/GM CRM 30GM TUBE TOP SCH ×2 (02:00→13:30)
[2018-10-25] MEDS: METRONIDAZOLE 500MG/NS 100ML 100 ML IV SCH ×3 (05:31→21:00)
[2018-10-25] MEDS: PANTOPRAZOLE SOD 40 MG TABEC PO SCH (05:31)
--- NOTE | 2018-10-25 07:10 | NUR ---
RCD PT AT BED PT IS ALERT AND ORIENTED PT RESTING ON BED NO SIGNS OF ANY DISTRESS NOTED IV PATENT NO DIARRHEA TODAY BED LOW AND LOCKED CALL LIGHT IN REACH
[2018-10-25] MEDS: INSULIN REGULAR, HUMAN 100 UNIT/1 ML 3ML VIAL SQ SCH ×4 (07:30→21:00)
[2018-10-25] MEDS: FAMOTIDINE 20 MG TAB PO SCH ×2 (07:30→16:30)
[2018-10-25] MEDS: MORPHINE SULFATE INJ 4 MG/ML INJ 1ML IV PRN ×2 (08:47→21:06)
[2018-10-25] MEDS: FUROSEMIDE 40 MG TAB PO SCH (09:00)
[2018-10-25] MEDS: GABAPENTIN 400 MG CAP PO SCH ×3 (09:00→21:00)
[2018-10-25] MEDS: SPIRONOLACTONE 25 MG TAB PO SCH (09:00)
[2018-10-25] MEDS: METOPROLOL TARTRATE 25 MG TAB PO SCH (09:00)
[2018-10-25] MEDS: RIFAXIMIN 550 MG TABLET PO SCH ×2 (09:00→17:00)
--- NOTE | 2018-10-25 13:39 | NUR ---
Nutrition Screen Note RD Recommendation for Physician: advance diet as tolerated to an 1800 ADA diet Plan of Care: RD following, monitoring for tolerance and adequacy Nutrition reason for involvement: LOS Primary Diagnose(s): Colitis, Sepsis, UTI PMH: T2DM, Obesity, PUD Ht:61 in Wt:310lb BMI:58.6 kg/m2 IBW:105lb RD Assessment: (10/24/2018) Chart reviewed. Labs and meds reviewed. Initial encounter with patient. Diet Hx: pt has no known food allergies. Pt denies any N,V, D. 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 No difficulty chewing or swallowing at this time. Denies wt changes. Current Diet: Full liquid Malnutrition Evaluation (10/24/2018) The patient does not meet criteria for a specified degree of malnutrition at this time. Will re-evaluate at follow-up as appropriate. Diet Education Needs Assessment: Diet education not indicated. Nutrition Care Level: low Signed: Ross Coelho RD, LD, [facility]
--- NOTE | 2018-10-25 18:09 | Progress Note ---
DATE: SUBJECTIVE: Ms. Hernandez is feeling better. She says she had three loose stools today, but since she came here, she is feeling better. REVIEW OF SYSTEMS: HEENT: Negative. PULMONARY: Negative. CARDIAC: Negative. : Negative. GI: As above. PHYSICAL EXAMINATION: GENERAL: She is currently alert, oriented, does not seem to be in acute distress. VITAL SIGNS: currently afebrile. HEENT: Normocephalic. Not icteric. NECK: Supple. CHEST: Clear bilateral. HEART: S1, S2. No S3, S4, or murmur. ABDOMEN: Soft, morbidly obese. EXTREMITIES: No edema. LABORATORY DATA: Reviewed. Her white count came down to 11.18, on admission was 18.9. Her cultures: Blood culture is negative. Urine culture is negative. IMPRESSION: 1. Colitis, present on admission. Clinically, seems to be getting better. She is on oral vancomycin, rifaximin. 2. Morbidly obese patient. 3. Clostridium difficile colitis present on admission. Continue with oral vancomycin for 3 weeks. 4. She remains with diarrhea. We will observe. But clinically, she says she is doing better. We will follow. MD ANGEL Beckett/JAMEY /[id number]
--- NOTE | 2018-10-25 18:41 | NUR ---
PT RESTING ON BED BED SIDE REPORT GIVEN TO ONCOMING NURSE
[2018-10-25] MEDS: SIMVASTATIN 40 MG TAB PO SCH (21:00)
[2018-10-25] MEDS: INSULIN GLARGINE 100 UNITS/ML VIAL SQ SCH (21:00)
[2018-10-26] VITALS: BP 121/56
[2018-10-26] MEDS: VANCOMYCIN 250MG/5ML ORAL SOLN PO SCH ×3 (00:30→12:00)
[2018-10-26] MEDS: NYSTATIN 100,000 UNITS/GM CRM 30GM TUBE TOP SCH ×2 (00:30→13:30)
[2018-10-26] MEDS: HYDROCODONE/APAP 7.5MG-325MG 1 EA TAB PO PRN (01:51)
[2018-10-26 04:00] VITALS: BP 101/56
[2018-10-26] MEDS ORDERED: SODIUM CHLORIDE 0.9% 250ML 250 ML ONE (04:45)
[2018-10-26 05:31] LABS: BASOPHILS # (AUTO) 0.1 (0.0-0.1); BASOPHILS % 0.9 % (0.0-1.0); EOSINOPHILS # (AUTO) 0.1 (0.0-0.4); EOSINOPHILS % 1.4 % (0.0-6.0); HEMATOCRIT 34.7 % (34.2-44.1); HEMOGLOBIN 11.5 g/dL (12.0-16.0); LYMPHOCYTES # (AUTO) 0.8 (1.0-3.2); LYMPHOCYTES % 10.3 % (18.0-39.1); MEAN CORPUSCULAR HEMOGLOBIN 26.5 pg (28-32); MEAN CORPUSCULAR HGB CONC 33.1 g/dL (31-35); MONOCYTES % 12.1 % (4.4-11.3); NEUTROPHILS # (AUTO) 5.5 (2.1-6.9); NEUTROPHILS % 68.8 % (38.7-80.0); PLATELET COUNT 132 x10e3/uL (140-360); RED BLOOD COUNT 4.34 x10e6/uL (3.6-5.1); RED CELL DISTRIBUTION WIDTH 15.8 % (11.7-14.4)
[2018-10-26] MEDS: METRONIDAZOLE 500MG/NS 100ML 100 ML IV SCH ×2 (05:41→14:00)
[2018-10-26] MEDS: PANTOPRAZOLE SOD 40 MG TABEC PO SCH (05:42)
[2018-10-26 06:01] LABS: ALANINE AMINOTRANSFERASE 14 IU/L (0-55); ALBUMIN/GLOBULIN RATIO 0.7 (0.8-2.0); ALKALINE PHOSPHATASE 89 IU/L (40-150); ANION GAP 11.8 mmol/L (8-16); BLOOD UREA NITROGEN 11 mg/dL (7-26); BUN/CREATININE RATIO 13 (6-25); CALCIUM 8.1 mg/dL (8.4-10.2); CARBON DIOXIDE 24 mmol/L (22-29); CHLORIDE 104 mmol/L (98-107); CREATININE, SERUM 0.85 mg/dL (0.57-1.11); EST GLOMERULAR FILTRATION RATE > 60 ML/MIN (60-); GLUCOSE 210 mg/dL (74-118); POTASSIUM 3.8 mmol/L (3.5-5.1); SODIUM 136 mmol/L (136-145)
--- NOTE | 2018-10-26 07:10 | NUR ---
RCD PT AT BED PT IS ALERT AND ORIENTED PT RESTING ON BED NO SIGNS OF ANY DISTRESS NOTED IV PATENT BED LOW AND LOCKED CALL LIGHT IN REACH
[2018-10-26] MEDS: INSULIN REGULAR, HUMAN 100 UNIT/1 ML 3ML VIAL SQ SCH ×2 (07:30→11:30)
[2018-10-26] MEDS: FAMOTIDINE 20 MG TAB PO SCH (07:30)
[2018-10-26 08:19] VITALS: BP 111/82
[2018-10-26 09:00] VITALS: BP 111/82
[2018-10-26] MEDS: RIFAXIMIN 550 MG TABLET PO SCH (09:00)
[2018-10-26] MEDS: GABAPENTIN 400 MG CAP PO SCH ×2 (09:00→15:00)
[2018-10-26] MEDS: FUROSEMIDE 40 MG TAB PO SCH (09:00)
[2018-10-26] MEDS: METOPROLOL TARTRATE 25 MG TAB PO SCH (09:00)
[2018-10-26] MEDS: SPIRONOLACTONE 25 MG TAB PO SCH (09:00)
[2018-10-26 12:17] VITALS: BP 129/61
[2018-10-26] MEDS ORDERED: METOPROLOL SUCC25 MG PO (13:01)
[2018-10-26] MEDS ORDERED: ULTRAM50 MG PO (13:44)
[2018-10-26] MEDS ORDERED: METRONIDAZOLE250 MG PO (13:45)
--- NOTE | 2018-10-26 13:48 | Discharge Summary ---
ADMITTING DIAGNOSES: 1. Colitis. 2. Extreme obesity. 3. Hypertensive heart disease. 4. Type 2 diabetes mellitus. 5. Acute renal failure secondary to acute tubular necrosis. DISCHARGE DIAGNOSES: 1. Colostrum difficile colitis. 2. Extreme obesity, BMI of 58, complicated underlying hypertension, diabetes mellitus. 3. Type 2 diabetes mellitus. 4. Hypertensive heart disease. 5. Acute renal failure, resolved. HOSPITAL COURSE: This is a 53-year-old white woman, who was admitted to [facility] with diagnosis of colitis. The patient underwent a CT of the abdomen and pelvis with contrast on admission on October 20, 2018, which revealed evidence of colitis involving the descending colon, sigmoid colon, as well as rectum. During this hospitalization, stool studies revealed the presence of Clostridium difficile toxin A and B antigen. The patient's diagnosis on admission was sepsis secondary to colitis. Discharge diagnosis going to be sepsis secondary to Clostridium difficile colitis, resolving. On admission, patient's white blood cell count was 21,400 with 86% segments. On day of discharge, the patient's white blood cell count was 7900 with 68% segments. The patient improved clinically with intravenous metronidazole and oral vancomycin. The patient was seen by Infectious Disease, Dr. Martinez during this hospitalization. Her hospitalization was unremarkable. Also on admission, the patient was found to have acute renal failure. On admission, patient's BUN and creatinine was 23 and 1.34 respectively. On day of discharge, the patient's BUN and creatinine was 11 and 0.85 respectively. PATIENT'S CONDITION ON DISCHARGE: Stable. DISCHARGE MEDICATIONS: 1. Metronidazole 500 mg p.o. t.i.d. for 14 days. 2. Tramadol 50 mg b.i.d. p.r.n. pain. 3. Furosemide 40 mg daily. 4. Metoprolol succinate 25 mg daily. 5. Gabapentin 800 mg t.i.d. 6. Levemir insulin 50 units subcutaneous twice a day. 7. Humalog insulin 20 units subcutaneous t.i.d. with meals. 8. Pantoprazole 40 mg daily. 9. Potassium chloride 20 mEq once daily. 10. Xifaxan 550 mg b.i.d. 11. Simvastatin 40 mg at bedtime. 12. Spironolactone 100 mg daily. FOLLOWUP INSTRUCTIONS: The patient is instructed to follow up Dr. Philipp Beasley or primary care physician within 10 days. The patient was actually scheduled for elective EGD on October 29, 2018 in the [facility], but I asked that she postpone this procedure after she fully completes her full two week course of oral metronidazole in regard to her Clostridium difficile colitis. MD BANDAR Snow/MODL /[id number] cc: MD Funmi Gonzales MD MTDD
--- NOTE | 2018-10-26 16:06 | NUR ---
PT WENT HOME IN SAFE CONDITION WITH HER SISTER
== END 2018-10-26 16:06 | disposition home or self-care (01) | DRG 871 ==
LOC: ER 14:38 → ERHOLD 19:39 → MED/SURG2 21:14
DX: A41.9 Sepsis, unspecified organism (principal); N17.0 Acute kidney failure with tubular necrosis; A04.72 Enterocolitis due to Clostridium difficile, not specified as recurrent; N39.0 Urinary tract infection, site not specified; Z68.43 Body mass index [BMI] 50.0-59.9, adult; E11.65 Type 2 diabetes mellitus with hyperglycemia; E66.9 Obesity, unspecified; E87.6 Hypokalemia; I11.9 Hypertensive heart disease without heart failure; R53.81 Other malaise; Z79.4 Long term (current) use of insulin
CPT/HCPCS: 36415; 74177; 80048; 80053; 81001; 82948; 83605; 85025; 87040; 87086; 87493; 96367; 96372; 99284; J1815; J2270; J2405; J2543; J3480; J7030; J7050; J7121; Q9967

== ENCOUNTER 2018-11-12 11:21 | Emergency (ER) | payer MEDICARE, OTHER ==
[~2018-11-12] VITALS: Ht 154.9 cm; Wt 140.6 kg
[~2018-11-12 11:21] MED LIST: FUROSEMIDE40 MG PO; GABAPENTIN400 MG PO; HUMALOG100 UNIT/1 SQ; LEVEMIR100 UNIT/1 SQ; METOPROLOL SUCC25 MG PO; METOPROLOL TART25 MG PO; METRONIDAZOLE250 MG PO; PANTOPRAZOLE SO40 MG PO; POTASSIUM CHLO20 ME1 PO; SIMVASTATIN40 MG PO; SPIRONOLACTONE25 MG PO; ULTRAM50 MG PO; VANCOMYCIN HCL500 MG PO; XIFAXAN550 MG PO
--- OUTSIDE RECORDS SUMMARY | 2018-11-12 11:24 | XMS REPORT | Clinical Summary ---
Author Author PAO [employer] [facility] [employer] [facility] Address Unknown Phone Unavailable Care Team Providers Care Sole Cutter Name Role Phone Maria Mayen MD PCP [...] Su MD 04/15/2018 Hospital Gastroenterology Encounter after 11/11/2017 Social History Date Tobacco Use Types Packs/Day [...] Taken Vital Sign Reading 04/15/2018 6:09 PM REFRIGERATED CARGO CLERK Blood Pressure 129/62 04/15/2018 6:09 PM REFRIGERATED CARGO CLERK Pulse 86 04/15/2018 6:09 PM REFRIGERATED CARGO CLERK Temperature 37 C (98.6 F) 04/15/2018 6:09 PM REFRIGERATED CARGO CLERK Respiratory Rate 18 04/15/2018 6:09 PM REFRIGERATED CARGO CLERK Oxygen Saturation 96% - Inhaled Oxygen - Concentration 04/15/2018 10:40 AM REFRIGERATED CARGO CLERK Weight 134.4 kg (296 lb 4.8 oz) 04/15/2018 10:40 AM REFRIGERATED CARGO CLERK Height 154.9 cm (5' 1") 04/15/2018 10:40 AM REFRIGERATED CARGO CLERK Body Mass Index 55.99 Plan of Treatment Not on file Procedures Comments Procedure Name Priority Date/Time Associated Diagnosis POCT-GLUCOSE METER Routine 04/15/2018 4:30 PM REFRIGERATED CARGO CLERK REPORT OF PROCEDURE - 04/15/2018 ENDOSCOPY URL 3:48 PM REFRIGERATED CARGO CLERK FINE NEEDLE ASPIRATE Routine 04/15/2018 (FNA) REQUEST 3:42 PM REFRIGERATED CARGO CLERK FINE NEEDLE ASPIRATION BY AP Routine 04/15/2018 CLINICIAN 3:42 PM REFRIGERATED CARGO CLERK FINE NEEDLE ASPIRATE Routine 04/15/2018 (FNA) REQUEST 3:36 PM REFRIGERATED CARGO CLERK FINE NEEDLE ASPIRATION BY AP Routine 04/15/2018 CLINICIAN 3:36 PM REFRIGERATED CARGO CLERK UPPER ENDOSCOPY,FNA 04/15/2018 Abnormal findings on W/ULTRASOUND 2:03 PM REFRIGERATED CARGO CLERK imaging test Special Needs ercp w/ fluoro and anes POCT-GLUCOSE METER Routine 04/15/2018 11:18 AM REFRIGERATED CARGO CLERK after 11/11/2017 Results * POC-Glucose meter (04/15/2018 4:30 PM REFRIGERATED CARGO CLERK) Only the most recent of 2 results within the time period is included. POC-Glucose Meter 161 (H)Comment: TESTED AT 70 - 110 mg/dL [facility] [address] [facility] [id number] Specimen Blood Performing Organization Address City/[facility] Phone Number [facility] [address] [place], [place] [phone] [facility] * REPORT OF PROCEDURE - ENDOSCOPY URL (04/15/2018 3:48 PM REFRIGERATED CARGO CLERK) Narrative Performed At * FINE NEEDLE ASPIRATE (FNA) REQUEST (04/15/2018 3:42 PM REFRIGERATED CARGO CLERK) Only the most recent of 2 results within the time period is included. Cytology See Separate Report [facility] Specimen Fine Needle Aspirate Performing Organization Address City/[facility] Cent[facility]ohi Phone Number [facility] [address] [place], [place] [phone] [facility] * Fine Needle Aspirate by Clinician (04/15/2018 3:42 PM REFRIGERATED CARGO CLERK) Only the most recent of 2 results within the time period is included. Case Report Medical Cytology [facility] Report [facility] Case: [id number] Authorizing Provider:Kobe Su MDCollected: 04/15/2018 1542 Ordering Location: [facility] ENDOSCOPY SERVICESReceived: 04/15/2018 1626 Pathologist: Dory Bolivar Specimen:Pancreatic, Pancreatic head in CRR ADDENDUM No fungal or mycobacterial [facility] like organisms are seen on the [facility] GMS and TATI stained sections of specimen. DIAGNOSIS PANCREAS HEAD MASS FNA BY [facility] CLINICIAN (CYTOSPINS AND CELL [facility] BLOCK OF ASPIRATE): - GRANULOMATOUS INFLAMMATION - NEGATIVE FOR MALIGNANCY, SEE COMMENT Signing Pathologist Direct Phone Line: [phone] COMMENT The etiology for the [facility] granulomatous inflammation [facility] includes (but is not limited to) infectious etiologies (AFB and GMS ordered) and autoimmune (sarcoidosis). Clinical correlation is recommended. Intradepartmental Consultation: Edgar Yates MD has reviewed the case and agrees with the findings. CPT Code(s) 30520, 83586, 08596 X 2 [facility] CLINICAL DATA (2.8 X 2.9 cm) round mass in [facility] the pancreatic head [facility] SPECIMEN SOURCE PANCREAS HEAD MASS FNA [facility] GROSS DESCRIPTION 37 mls in cytorich red; [address] [facility] cytospins, cell block [facility] Collected: [id number] Received: [id number] MICROSCOPIC DESCRIPTION Cytospins and cell block show [facility] granulomatous inflammation [facility] with surrounding fibrosis and scattered lymphocyted. No ductal/acinar cells are seen. No malignant cells are seen. AFB and GMS are ordered and will be submitted in an addendum. SPECIAL STUDIES The interpretation of this [facility] case included the use of [facility] immunohistochemistry or special stains. Immunohistochemistry technical testing was performed at [facility] Pathology Laboratory where it was developed and [...] clinical laboratory testing. Gross assessment was [facility] performed at [place], Department [facility] Pathology, [address] [place] [address], [place] [address], Technical component was [facility] performed at [place], Department [facility] Pathology, [address] [place] [address], [place] [address], Professional component [facility] was performed at [place], Department of [facility] Pathology, [address] [place] [address], [place] [address], Specimen Fine Needle Aspirate Narrative Performed At Performing Organization Address City/State/Zipcode Phone Number [facility] [address] [place] [address] [facility] after 11/11/2017 Insurance Payer Benefit Subscriber ID Type Phone Address Plan / Group [facility] xxxxxxxxx MEDICARE MGD CARE MEDICARE HMO
[2018-11-12] MEDS ORDERED: ONDANSETRON HCL INJ 2MG/ML 2ML 2 MG/ML VIAL IV STA (11:30)
[2018-11-12] MEDS ORDERED: KETOROLAC TROMETHAMINE 30 MG/ML VIAL IV STA (11:30)
[2018-11-12] MEDS ORDERED: SODIUM CHLORIDE 0.9% 1000ML 1,000 ML IV STA (11:30)
[2018-11-12 11:49] LABS: BASOPHILS % 0.3 % (0.0-1.0); EOSINOPHILS # (AUTO) 0.1 (0.0-0.4); EOSINOPHILS % 2.4 % (0.0-6.0); HEMATOCRIT 35.6 % (34.2-44.1); HEMOGLOBIN 11.6 g/dL (12.0-16.0); LYMPHOCYTES # (AUTO) 0.4 (1.0-3.2); MEAN CORPUSCULAR HGB CONC 32.6 g/dL (31-35); MEAN CORPUSCULAR VOLUME 79.8 fL (81-99); MONOCYTES # (AUTO) 0.4 (0.2-0.8); MONOCYTES % 10.7 % (4.4-11.3); NEUTROPHILS # (AUTO) 2.5 (2.1-6.9); NEUTROPHILS % 73.3 % (38.7-80.0); PLATELET COUNT 127 x10e3/uL (140-360); RED BLOOD COUNT 4.46 x10e6/uL (3.6-5.1); RED CELL DISTRIBUTION WIDTH 16.3 % (11.7-14.4)
[2018-11-12 11:50] LABS: BILIRUBIN,URINE NEGATIVE (NEGATIVE); CLARITY,URINE CLEAR (CLEAR); COLOR,URINE YELLOW (YELLOW); KETONES,URINE NEGATIVE (NEGATIVE); LEUKOCYTE ESTERASE ,URINE TRACE (NEGATIVE); NITRITE,URINE NEGATIVE (NEGATIVE); PROTEIN,URINE DIPSTICK NEGATIVE (NEGATIVE); URINE UROBILINOGEN 0.2 mg/dL (0.2 - 1)
[2018-11-12 12:08] LABS: ALANINE AMINOTRANSFERASE 18 IU/L (0-55); ALBUMIN 2.7 g/dL (3.5-5.0); ALBUMIN/GLOBULIN RATIO 0.7 (0.8-2.0); ALKALINE PHOSPHATASE 99 IU/L (40-150); ANION GAP 11.5 mmol/L (8-16); BLOOD UREA NITROGEN 9 mg/dL (7-26); BUN/CREATININE RATIO 11 (6-25); CALCIUM 8.7 mg/dL (8.4-10.2); CARBON DIOXIDE 25 mmol/L (22-29); CHLORIDE 99 mmol/L (98-107); CREATINE KINASE 55 IU/L (29-168); CREATININE, SERUM 0.82 mg/dL (0.57-1.11); EST GLOMERULAR FILTRATION RATE > 60 ML/MIN (60-); GLUCOSE 317 mg/dL (74-118); LIPASE 41 U/L (8-78); POTASSIUM 3.5 mmol/L (3.5-5.1); SODIUM 132 mmol/L (136-145)
[2018-11-12 12:18] LABS: BACTERIA,URINE MODERATE /HPF; EPITHELIAL CELLS,URINE MODERATE /LPF
[2018-11-12] MEDS ORDERED: CEFTRIAXONE SOD 1 GM/NS 50 ML 50 ML IV ONE (13:15)
[2018-11-12] MEDS ORDERED: MACROBID 100 M100 MG PO (13:20)
[2018-11-12] MEDS ORDERED: ZOFRAN4 MG SL (13:21)
[2018-11-12] MEDS ORDERED: ONDANSETRON HCL INJ 2MG/ML 2ML 2 MG/ML VIAL IV ONE (13:47)
[2018-11-12 14:19] VITALS: BP 136/86
== END 2018-11-12 14:29 | disposition home or self-care (01) ==
LOC: ER 11:21
DX: N39.0 Urinary tract infection, site not specified (principal)
CPT/HCPCS: 36415; 80053; 81001; 82550; 82553; 83690; 83880; 84484; 85025; 85730; 99283; J0696; J1885; J2405; J7030

== ENCOUNTER → 2020-10-25 | Outpatient (CLI) | payer MEDICARE, OTHER ==
[~2020-10-25] MED LIST changes: +ELIQUIS5 MG PO; +LOVENOX60 MG/0.6 SC; +MACROBID 100 M100 MG PO; +ZOFRAN4 MG SL
== END ==
LOC: US 08:53
PROVIDERS: ATTEND Internal Medicine Gastroenterology
DX: K74.60 Unspecified cirrhosis of liver (principal)
CPT/HCPCS: 76705

== ENCOUNTER 2020-11-01 09:01 | Inpatient (IN) | payer MEDICARE, OTHER ==
[~2020-11-01] VITALS: Ht 154.9 cm; Wt 140.6 kg
[2020-11-01] VITALS (10 sets, daily range): BP systolic 100–123; BP diastolic 54–68
[2020-11-01 09:57] LABS: BASOPHILS % 0.9 % (0.0-1.0); EOSINOPHILS # (AUTO) 0.1 (0.0-0.4); EOSINOPHILS % 3.2 % (0.0-6.0); HEMATOCRIT 24.3 % (34.2-44.1); LYMPHOCYTES # (AUTO) 0.4 (1.0-3.2); LYMPHOCYTES % 18.5 % (18.0-39.1); MEAN CORPUSCULAR HEMOGLOBIN 19.6 pg (28-32); MEAN CORPUSCULAR HGB CONC 28.8 g/dL (31-35); MEAN CORPUSCULAR VOLUME 68.1 fL (81-99); MONOCYTES # (AUTO) 0.2 (0.2-0.8); MONOCYTES % 10.8 % (4.4-11.3); NEUTROPHILS # (AUTO) 1.5 (2.1-6.9); NEUTROPHILS % 66.1 % (38.7-80.0); PLATELET COUNT 109 x10e3/uL (140-360); RED BLOOD COUNT 3.57 x10e6/uL (3.6-5.1); RED CELL DISTRIBUTION WIDTH 18.3 % (11.7-14.4)
[2020-11-01 10:27] LABS: ALBUMIN 2.9 g/dL (3.5-5.0); ALBUMIN/GLOBULIN RATIO 0.9 (0.8-2.0); ANION GAP 13.8 mmol/L (8-16); CALCIUM 8.6 mg/dL (8.4-10.2); CREATININE, SERUM 1.05 mg/dL (0.57-1.11); POTASSIUM 3.8 mmol/L (3.5-5.1)
[2020-11-01 10:42] LABS: INR 1.13; PROTHROMBIN TIME 15.1 seconds (11.9-14.5)
[2020-11-01 10:43] LABS: PARTIAL THROMBOPLASTIN TIME 34.1 seconds (23.8-35.5)
[2020-11-01] MEDS ORDERED: SODIUM CHLORIDE 0.9% 250ML 250 ML IV ONE ×2 (10:45→18:45)
[2020-11-01] MEDS ORDERED: INSULIN REGULAR, HUMAN 100 UNIT/1 ML 3ML VIAL IV ONE (10:45)
[2020-11-01] MEDS ORDERED: LISINOPRIL2.5 MG PO (15:51)
[2020-11-01] MEDS: TRAMADOL HCL 50 MG TAB PO PRN (17:29)
[2020-11-01] MEDS: FUROSEMIDE 40 MG TAB PO SCH (17:30)
[2020-11-01] MEDS: INSULIN LISPRO 100 UNIT/1 ML 3ML VIAL SQ SCH (17:30)
[2020-11-01] MEDS: RIFAXIMIN 550 MG TABLET PO SCH (17:31)
[2020-11-01] MEDS ORDERED: DEXTROSE 50% SYRINGE 50 ML IV PRN (18:45)
[2020-11-01] MEDS: INSULIN GLARGINE 100 UNITS/ML VIAL SQ SCH (21:00)
[2020-11-01] MEDS: GABAPENTIN 400 MG CAP PO SCH (21:47)
[2020-11-02] VITALS (10 sets, daily range): BP systolic 104–133; BP diastolic 59–76
[2020-11-02] MEDS: TRAMADOL HCL 50 MG TAB PO PRN ×2 (00:10→10:13)
[2020-11-02] MEDS ORDERED: SODIUM CHLORIDE 0.9% 250ML 250 ML ONE (00:21)
[2020-11-02 01:42] LABS: FERRITIN 8.63 ng/mL (4.63-204.00)
[2020-11-02 05:29] LABS: BASOPHILS % 0.7 % (0.0-1.0); EOSINOPHILS # (AUTO) 0.1 (0.0-0.4); EOSINOPHILS % 3.6 % (0.0-6.0); HEMATOCRIT 27.6 % (34.2-44.1); HEMOGLOBIN 8.4 g/dL (12.0-16.0); LYMPHOCYTES # (AUTO) 0.5 (1.0-3.2); LYMPHOCYTES % 17.1 % (18.0-39.1); MEAN CORPUSCULAR HEMOGLOBIN 21.2 pg (28-32); MEAN CORPUSCULAR HGB CONC 30.4 g/dL (31-35); MEAN CORPUSCULAR VOLUME 69.5 fL (81-99); MONOCYTES # (AUTO) 0.3 (0.2-0.8); MONOCYTES % 12.1 % (4.4-11.3); NEUTROPHILS # (AUTO) 1.9 (2.1-6.9); NEUTROPHILS % 66.1 % (38.7-80.0); PLATELET COUNT 94 x10e3/uL (140-360); RED BLOOD COUNT 3.97 x10e6/uL (3.6-5.1); RED CELL DISTRIBUTION WIDTH 19.9 % (11.7-14.4)
[2020-11-02] MEDS ORDERED: PANTOPRAZOLE SOD 40 MG TABEC PO SCH (06:00)
[2020-11-02 06:03] LABS: ANION GAP 11.3 mmol/L (8-16); BLOOD UREA NITROGEN 10 mg/dL (7-26); BUN/CREATININE RATIO 13 (6-25); CALCIUM 7.8 mg/dL (8.4-10.2); CARBON DIOXIDE 27 mmol/L (22-29); CHLORIDE 101 mmol/L (98-107); EST GLOMERULAR FILTRATION RATE > 60 ML/MIN (60-); GLUCOSE 242 mg/dL (74-118); POTASSIUM 3.3 mmol/L (3.5-5.1); SODIUM 136 mmol/L (136-145)
[2020-11-02] MEDS ORDERED: LISINOPRIL 2.5 MG TAB PO SCH (09:00)
[2020-11-02] MEDS ORDERED: METOPROLOL SUCCINATE 25 MG TAB XL PO SCH (09:00)
[2020-11-02] MEDS: FUROSEMIDE 40 MG TAB PO SCH (10:06)
[2020-11-02] MEDS: GABAPENTIN 400 MG CAP PO SCH (10:07)
[2020-11-02] MEDS: RIFAXIMIN 550 MG TABLET PO SCH (10:10)
[2020-11-02] MEDS: INSULIN GLARGINE 100 UNITS/ML VIAL SQ SCH (10:10)
[2020-11-02] MEDS: INSULIN LISPRO 100 UNIT/1 ML 3ML VIAL SQ SCH ×2 (10:10→12:29)
[2020-11-02] MEDS ORDERED: INSULIN REGULAR, HUMAN 100 UNIT/1 ML 3ML VIAL SQ SCH (12:30)
[2020-11-02] MEDS ORDERED: POTASSIUM CHLORIDE 20 MEQ TAB CR PO ONE (12:45)
[2020-11-02] MEDS ORDERED: EPHEDRINE SULFATE INJ 50 MG/ML VIAL ONE (12:50)
[2020-11-02] MEDS ORDERED: PROPOFOL IV EMULSION 10 MG/ML 20 ML VIAL ONE (12:50)
[2020-11-02] MEDS ORDERED: LIDOCAINE HCL 2% LOCAL INJ 5 ML SDV VIAL INJ ONE (12:50)
== END 2020-11-02 14:59 | disposition home health service (06) | DRG 378 ==
LOC: ER 09:38 → ERHOLD 10:34 → MED/SURG3 15:16
PROC: 30233N1 Transfusion of Nonautologous Red Blood Cells into Peripheral Vein, Percutaneous Approach (ICD-10-PCS; 2020-11-01)
PROC: 0DB78ZX Excision of Stomach, Pylorus, Via Natural or Artificial Opening Endoscopic, Diagnostic (ICD-10-PCS; principal; 2020-11-02)
DX: K29.71 Gastritis, unspecified, with bleeding (principal); I50.22 Chronic systolic (congestive) heart failure; Z68.43 Body mass index [BMI] 50.0-59.9, adult; D62 Acute posthemorrhagic anemia; K74.60 Unspecified cirrhosis of liver; I85.10 Secondary esophageal varices without bleeding; I86.8 Varicose veins of other specified sites; I10 Essential (primary) hypertension; J44.9 Chronic obstructive pulmonary disease, unspecified; E11.9 Type 2 diabetes mellitus without complications; E66.01 Morbid (severe) obesity due to excess calories; I25.10 Atherosclerotic heart disease of native coronary artery without angina pectoris; Z20.822 Contact with and (suspected) exposure to COVID-19
CPT/HCPCS: 36415; 80048; 80053; 82607; 82728; 82746; 82948; 83540; 84466; 85014; 85025; 85045; 85610; 85730; 86850; 86900; 86920; 88305; 88312; 99284; J1815; J7050; P9016; U0002

== ENCOUNTER → 2020-11-11 | Day surgery (SDC) | payer MEDICARE, OTHER ==
[2020-11-08 11:00] LABS: BASOPHILS % 0.6 % (0.0-1.0); EOSINOPHILS # (AUTO) 0.1 (0.0-0.4); EOSINOPHILS % 2.8 % (0.0-6.0); HEMATOCRIT 30.4 % (34.2-44.1); HEMOGLOBIN 9.1 g/dL (12.0-16.0); LYMPHOCYTES # (AUTO) 0.5 (1.0-3.2); LYMPHOCYTES % 13.5 % (18.0-39.1); MEAN CORPUSCULAR HEMOGLOBIN 21.2 pg (28-32); MEAN CORPUSCULAR HGB CONC 29.9 g/dL (31-35); MEAN CORPUSCULAR VOLUME 70.7 fL (81-99); MONOCYTES # (AUTO) 0.3 (0.2-0.8); MONOCYTES % 9.3 % (4.4-11.3); NEUTROPHILS # (AUTO) 2.6 (2.1-6.9); NEUTROPHILS % 73.8 % (38.7-80.0); PLATELET COUNT 109 x10e3/uL (140-360); RED CELL DISTRIBUTION WIDTH 20.4 % (11.7-14.4)
[2020-11-08 11:25] LABS: ALANINE AMINOTRANSFERASE 19 IU/L (0-55); ALBUMIN 3.1 g/dL (3.5-5.0); ALBUMIN/GLOBULIN RATIO 0.9 (0.8-2.0); ALKALINE PHOSPHATASE 103 IU/L (40-150); ANION GAP 15.5 mmol/L (8-16); BLOOD UREA NITROGEN 11 mg/dL (7-26); BUN/CREATININE RATIO 13 (6-25); CALCIUM 8.5 mg/dL (8.4-10.2); CARBON DIOXIDE 26 mmol/L (22-29); CHLORIDE 98 mmol/L (98-107); CREATININE, SERUM 0.88 mg/dL (0.57-1.11); EST GLOMERULAR FILTRATION RATE > 60 ML/MIN (60-); GLUCOSE 221 mg/dL (74-118); POTASSIUM 3.5 mmol/L (3.5-5.1); SODIUM 136 mmol/L (136-145)
[2020-11-08 11:25] LABS: INR 1.21; PARTIAL THROMBOPLASTIN TIME 34.8 seconds (23.8-35.5)
[~2020-11-11] MED LIST changes: +FENTANYL CITRATE/PF 100MCG/2 ML INJ ONE; +INSULIN REGULAR, HUMAN 100 UNIT/1 ML 3ML VIAL ONE; +KETAMINE HCL INJ 50 MG/ML 10 ML VIAL ONE; +LIDOCAINE HCL 2% LOCAL INJ 5 ML SDV VIAL INJ ONE; +LISINOPRIL2.5 MG PO; +MIDAZOLAM HCL 2 MG/2 ML VIAL ONE; +PROPOFOL IV EMULSION 10 MG/ML 20 ML VIAL ONE
[2020-11-11 15:45] VITALS: BP 127/54
== END | disposition home or self-care (01) ==
LOC: OR 11:45
PROVIDERS: ATTEND Internal Medicine Gastroenterology
DX: Z12.11 Encounter for screening for malignant neoplasm of colon (principal); D12.3 Benign neoplasm of transverse colon; Q27.33 Arteriovenous malformation of digestive system vessel; K57.30 Diverticulosis of large intestine without perforation or abscess without bleeding; K58.9 Irritable bowel syndrome, unspecified; K92.1 Melena; K64.8 Other hemorrhoids; K21.9 Gastro-esophageal reflux disease without esophagitis; K74.60 Unspecified cirrhosis of liver; K72.90 Hepatic failure, unspecified without coma; E11.9 Type 2 diabetes mellitus without complications; R53.1 Weakness; I10 Essential (primary) hypertension; E66.01 Morbid (severe) obesity due to excess calories; Z72.0 Tobacco use; Z01.810 Encounter for preprocedural cardiovascular examination; Z01.812 Encounter for preprocedural laboratory examination; Z20.822 Contact with and (suspected) exposure to COVID-19; Z79.02 Long term (current) use of antithrombotics/antiplatelets; Z79.4 Long term (current) use of insulin; Z85.43 Personal history of malignant neoplasm of ovary; Z85.42 Personal history of malignant neoplasm of other parts of uterus; Z80.0 Family history of malignant neoplasm of digestive organs
CPT/HCPCS: 36415 ×2; 45385; 45388; 80053; 82948; 85025; 85610; 85730; 93005; J1817; J2001; J2250; J2704; J3010; U0002; 43239; 45378

== ENCOUNTER → 2020-12-09 | Outpatient (CLI) | payer MEDICARE, OTHER ==
[~2020-12-09] MED LIST changes: -FENTANYL CITRATE/PF 100MCG/2 ML INJ ONE; -INSULIN REGULAR, HUMAN 100 UNIT/1 ML 3ML VIAL ONE; -KETAMINE HCL INJ 50 MG/ML 10 ML VIAL ONE; -LIDOCAINE HCL 2% LOCAL INJ 5 ML SDV VIAL INJ ONE; -MIDAZOLAM HCL 2 MG/2 ML VIAL ONE; -PROPOFOL IV EMULSION 10 MG/ML 20 ML VIAL ONE
== END ==
LOC: RAD 12:10
DX: M25.512 Pain in left shoulder (principal)

== ENCOUNTER 2021-02-17 13:23 | Inpatient (IN) | payer MEDICARE, OTHER ==
[~2021-02-17] VITALS: Ht 154.9 cm; Wt 156.5 kg
[2021-02-17 14:18] LABS: BASOPHILS % 0.3 % (0.0-1.0); EOSINOPHILS # (AUTO) 0.1 (0.0-0.4); EOSINOPHILS % 1.6 % (0.0-6.0); HEMATOCRIT 24.5 % (34.2-44.1); LYMPHOCYTES # (AUTO) 0.3 (1.0-3.2); LYMPHOCYTES % 9.2 % (18.0-39.1); MEAN CORPUSCULAR HEMOGLOBIN 18.1 pg (28-32); MEAN CORPUSCULAR HGB CONC 27.8 g/dL (31-35); MEAN CORPUSCULAR VOLUME 65.2 fL (81-99); MONOCYTES # (AUTO) 0.2 (0.2-0.8); NEUTROPHILS # (AUTO) 2.6 (2.1-6.9); NEUTROPHILS % 81.6 % (38.7-80.0); PLATELET COUNT 103 x10e3/uL (140-360); RED BLOOD COUNT 3.76 x10e6/uL (3.6-5.1); RED CELL DISTRIBUTION WIDTH 18.8 % (11.7-14.4)
[2021-02-17 14:22] LABS: HEMOGLOBIN 6.8 g/dL (12.0-16.0)
[2021-02-17] MEDS ORDERED: SODIUM CHLORIDE 0.9% 250ML 250 ML IV ONE (14:30)
[2021-02-17 14:38] LABS: ALBUMIN/GLOBULIN RATIO 0.9 (0.8-2.0); ANION GAP 17.1 mmol/L (8-16); CALCIUM 8.7 mg/dL (8.4-10.2); CREATININE, SERUM 1.06 mg/dL (0.57-1.11); POTASSIUM 3.1 mmol/L (3.5-5.1)
[2021-02-17 14:45] LABS: CREATINE KINASE MB 1.1 ng/mL (0-5.0)
[2021-02-17] MEDS ORDERED: FARXIGA5 MG PO (17:50)
[2021-02-17] MEDS ORDERED: HUMALOG KW200 UNIT/1 SQ (17:50)
[2021-02-17] MEDS ORDERED: LACTULOSE20 GM/30 M PO (17:50)
[2021-02-17 17:51] VITALS: BP 107/52
[2021-02-17 17:53] VITALS: BP 107/52
[2021-02-17] MEDS ORDERED: POTASSIUM CHLORIDE 20 MEQ TAB CR PO STA (19:49)
[2021-02-17 20:00] VITALS: BP 119/51
[2021-02-17] MEDS ORDERED: SODIUM CHLORIDE 0.9% 50ML 50 ML ONE (20:59)
[2021-02-17] MEDS ORDERED: SODIUM CHLORIDE 0.9% 250ML 250 ML ONE (21:01)
[2021-02-17] MEDS: TRAMADOL HCL 50 MG TAB PO PRN (21:08)
[2021-02-17 21:20] VITALS: BP 107/52
[2021-02-17 23:41] LABS: CREATINE KINASE MB 1.2 ng/mL (0-5.0)
[2021-02-18] VITALS (7 sets, daily range): BP systolic 98–138; BP diastolic 46–73
[2021-02-18 00:54] LABS: FERRITIN 4.74 ng/mL (4.63-204.00)
[2021-02-18] MEDS ORDERED: DIPHENHYDRAMINE HCL 25 MG CAP PO PRN (01:15)
[2021-02-18] MEDS ORDERED: ONDANSETRON HCL INJ 2MG/ML 2ML 2 MG/ML VIAL IV PRN (01:15)
[2021-02-18] MEDS ORDERED: DOCUSATE SODIUM 100 MG CAP PO PRN (01:15)
[2021-02-18] MEDS ORDERED: MELATONIN 5 MG TABLET PO PRN (01:15)
[2021-02-18] MEDS ORDERED: POTASSIUM CHLORIDE 20 MEQ TAB CR PO PRN (01:15)
[2021-02-18] MEDS ORDERED: DEXTROSE 50% SYRINGE 50 ML IV PRN ×2 (01:15→13:00)
[2021-02-18] MEDS ORDERED: BENZONATATE 100 MG CAP PO PRN (01:15)
[2021-02-18] MEDS ORDERED: SIMETHICONE 80 MG CHEW PO PRN (01:15)
[2021-02-18] MEDS ORDERED: ALBUTEROL/IPRATROPIUM 3 ML NEB NEB PRN (01:15)
[2021-02-18] MEDS ORDERED: HYDRALAZINE HCL 20 MG/ML VIAL IV PRN (01:15)
[2021-02-18] MEDS ORDERED: SODIUM CHLORIDE 0.9% 250ML 250 ML ONE (04:27)
[2021-02-18] MEDS ORDERED: PANTOPRAZOLE SOD 40 MG TABEC PO SCH (07:30)
[2021-02-18] MEDS: TRAMADOL HCL 50 MG TAB PO PRN (08:45)
[2021-02-18] MEDS: LISINOPRIL 2.5 MG TAB PO SCH (08:49)
[2021-02-18] MEDS: CYANOCOBALAMIN INJ 1,000 MCG/ML VIAL IM SCH (08:49)
[2021-02-18] MEDS: LACTULOSE SYRUP 20 GM/30 ML UDC PO SCH ×3 (08:49→21:03)
[2021-02-18] MEDS: RIFAXIMIN 550 MG TABLET PO SCH ×2 (08:50→18:52)
[2021-02-18] MEDS ORDERED: IRON SUCROSE 100 MG in SODIUM CHLORIDE 0.9% 100 ML 100 ML IV SCH (09:00)
[2021-02-18 11:01] LABS: BASOPHILS % 0.3 % (0.0-1.0); EOSINOPHILS # (AUTO) 0.1 (0.0-0.4); HEMATOCRIT 30.2 % (34.2-44.1); HEMOGLOBIN 8.7 g/dL (12.0-16.0); LYMPHOCYTES # (AUTO) 0.5 (1.0-3.2); LYMPHOCYTES % 12.9 % (18.0-39.1); MEAN CORPUSCULAR HGB CONC 28.8 g/dL (31-35); MEAN CORPUSCULAR VOLUME 69.3 fL (81-99); MONOCYTES # (AUTO) 0.4 (0.2-0.8); MONOCYTES % 11.5 % (4.4-11.3); NEUTROPHILS # (AUTO) 2.6 (2.1-6.9); NEUTROPHILS % 72.7 % (38.7-80.0); PLATELET COUNT 110 x10e3/uL (140-360); RED BLOOD COUNT 4.36 x10e6/uL (3.6-5.1); RED CELL DISTRIBUTION WIDTH 21.6 % (11.7-14.4)
[2021-02-18 11:30] LABS: CREATINE KINASE MB 1.2 ng/mL (0-5.0)
[2021-02-18 11:42] LABS: ALBUMIN 3.2 g/dL (3.5-5.0); ANION GAP 15.5 mmol/L (8-16); CALCIUM 8.9 mg/dL (8.4-10.2); CREATININE, SERUM 0.97 mg/dL (0.57-1.11); POTASSIUM 3.5 mmol/L (3.5-5.1)
[2021-02-18 12:15] LABS: FERRITIN 12.22 ng/mL (4.63-204.00); THYROID STIMULATING HORMONE 1.489 uIU/mL (0.350-4.940)
[2021-02-18] MEDS: IRON SUCROSE 100 MG in SODIUM CHLORIDE 0.9% 100 ML 100 ML IV SCH (12:18)
[2021-02-18 22:46] LABS: CREATINE KINASE MB 1.3 ng/mL (0-5.0)
[2021-02-19] VITALS (9 sets, daily range): BP systolic 103–127; BP diastolic 40–87
[2021-02-19] MEDS: TRAMADOL HCL 50 MG TAB PO PRN ×3 (05:02→18:28)
[2021-02-19 06:45] LABS: BASOPHILS % 0.3 % (0.0-1.0); EOSINOPHILS # (AUTO) 0.1 (0.0-0.4); EOSINOPHILS % 2.4 % (0.0-6.0); HEMATOCRIT 26.4 % (34.2-44.1); HEMOGLOBIN 8.2 g/dL (12.0-16.0); LYMPHOCYTES # (AUTO) 0.4 (1.0-3.2); LYMPHOCYTES % 10.7 % (18.0-39.1); MEAN CORPUSCULAR HEMOGLOBIN 22.1 pg (28-32); MEAN CORPUSCULAR HGB CONC 31.1 g/dL (31-35); MEAN CORPUSCULAR VOLUME 71.2 fL (81-99); MONOCYTES # (AUTO) 0.5 (0.2-0.8); NEUTROPHILS # (AUTO) 2.4 (2.1-6.9); NEUTROPHILS % 71.4 % (38.7-80.0); PLATELET COUNT 79 x10e3/uL (140-360); RED BLOOD COUNT 3.71 x10e6/uL (3.6-5.1); RED CELL DISTRIBUTION WIDTH 23.1 % (11.7-14.4)
[2021-02-19] MEDS ORDERED: FARXIGA5 MG PO (07:00)
[2021-02-19 07:15] LABS: CREATINE KINASE MB 1.5 ng/mL (0-5.0)
[2021-02-19 08:12] LABS: ALBUMIN 2.9 g/dL (3.5-5.0); ALBUMIN/GLOBULIN RATIO 0.9 (0.8-2.0); ANION GAP 14.2 mmol/L (8-16); CALCIUM 8.5 mg/dL (8.4-10.2); CHOL/HDL RATIO 4.5 (3.0-3.6); CREATININE, SERUM 0.81 mg/dL (0.57-1.11); POTASSIUM 3.2 mmol/L (3.5-5.1)
[2021-02-19 08:33] LABS: THYROID STIMULATING HORMONE 2.049 uIU/mL (0.350-4.940)
[2021-02-19] MEDS: CYANOCOBALAMIN INJ 1,000 MCG/ML VIAL IM SCH (08:57)
[2021-02-19] MEDS: LISINOPRIL 2.5 MG TAB PO SCH (08:57)
[2021-02-19] MEDS: RIFAXIMIN 550 MG TABLET PO SCH ×2 (08:57→17:20)
[2021-02-19] MEDS: ACETAMINOPHEN 325 MG TAB PO PRN ×2 (09:02→17:31)
[2021-02-19] MEDS ORDERED: DEXTROSE 50% SYRINGE 50 ML IV PRN (09:30)
[2021-02-19] MEDS: IRON SUCROSE 100 MG in SODIUM CHLORIDE 0.9% 100 ML 100 ML IV SCH (10:29)
[2021-02-19 11:07] LABS: CREATINE KINASE MB 1.7 ng/mL (0-5.0)
[2021-02-19 11:48] LABS: BAND NEUTROPHILS % (MANUAL) 3 %; EOSINOPHILS % (MANUAL) 2 % (0-7); LYMPHOCYTES % (MANUAL) 9 % (19-48); MONOCYTES % (MANUAL) 11 % (3.4-9.0); NEUTROPHILS % (MANUAL) 75 % (40-74)
[2021-02-19] MEDS: INSULIN REGULAR, HUMAN 100 UNIT/1 ML SQ SCH ×3 (12:00→21:26)
[2021-02-19] MEDS: LIDOCAINE 4% PATCH TP PRN (12:54)
[2021-02-19] MEDS: FUROSEMIDE 40 MG TAB PO SCH (18:32)
[2021-02-20] VITALS: BP 113/58
[2021-02-20] MEDS: TRAMADOL HCL 50 MG TAB PO PRN ×2 (01:10→08:47)
[2021-02-20 04:00] VITALS: BP 121/54
[2021-02-20 06:04] LABS: ANION GAP 13.4 mmol/L (8-16); CALCIUM 8.4 mg/dL (8.4-10.2); CREATININE, SERUM 0.77 mg/dL (0.57-1.11); POTASSIUM 3.4 mmol/L (3.5-5.1)
[2021-02-20] MEDS: INSULIN REGULAR, HUMAN 100 UNIT/1 ML SQ SCH ×2 (07:30→11:30)
[2021-02-20 08:06] VITALS: BP 124/70
[2021-02-20 08:34] VITALS: BP 124/70
[2021-02-20] MEDS: CYANOCOBALAMIN INJ 1,000 MCG/ML VIAL IM SCH (08:47)
[2021-02-20] MEDS: LIDOCAINE 4% PATCH TP PRN (08:47)
[2021-02-20] MEDS: RIFAXIMIN 550 MG TABLET PO SCH (08:47)
[2021-02-20] MEDS: FUROSEMIDE 40 MG TAB PO SCH (08:47)
[2021-02-20] MEDS: LISINOPRIL 2.5 MG TAB PO SCH (08:47)
[2021-02-20] MEDS ORDERED: SODIUM CHLORIDE 0.9% 250ML 250 ML ONE (11:00)
[2021-02-20] MEDS: IRON SUCROSE 100 MG in SODIUM CHLORIDE 0.9% 100 ML 100 ML IV SCH (11:17)
[2021-02-20 12:44] VITALS: BP 128/68
[2021-02-20] MEDS ORDERED: ONDANSETRON HCL 4 MG ORAL DISINTEGRATING TAB PO PRN (13:00)
[2021-02-20] MEDS ORDERED: METOPROLOL TARTRATE 25 MG TAB PO SCH (17:00)
[2021-02-21] MEDS ORDERED: PANTOPRAZOLE SOD 40 MG TABEC PO SCH (07:30)
[2021-02-21] MEDS ORDERED: CYANOCOBALAMIN 1,000 MCG TAB PO SCH (09:00)
== END 2021-02-20 13:12 | disposition home or self-care (01) | DRG 812 ==
LOC: ER 13:29 → ERHOLD 15:18 → MED/SURG2 17:13
PROC: 30233N1 Transfusion of Nonautologous Red Blood Cells into Peripheral Vein, Percutaneous Approach (ICD-10-PCS; principal; 2021-02-17)
DX: D50.9 Iron deficiency anemia, unspecified (principal); I50.30 Unspecified diastolic (congestive) heart failure; Z68.44 Body mass index [BMI] 60.0-69.9, adult; G47.30 Sleep apnea, unspecified; K21.9 Gastro-esophageal reflux disease without esophagitis; K29.70 Gastritis, unspecified, without bleeding; R07.89 Other chest pain; D72.819 Decreased white blood cell count, unspecified; E87.6 Hypokalemia; E78.5 Hyperlipidemia, unspecified; K74.60 Unspecified cirrhosis of liver; I25.10 Atherosclerotic heart disease of native coronary artery without angina pectoris; J44.9 Chronic obstructive pulmonary disease, unspecified; I11.0 Hypertensive heart disease with heart failure; E66.01 Morbid (severe) obesity due to excess calories; E11.42 Type 2 diabetes mellitus with diabetic polyneuropathy; Z86.711 Personal history of pulmonary embolism; Z85.42 Personal history of malignant neoplasm of other parts of uterus; Z85.43 Personal history of malignant neoplasm of ovary; Z90.49 Acquired absence of other specified parts of digestive tract; Z79.01 Long term (current) use of anticoagulants; Z86.718 Personal history of other venous thrombosis and embolism; Z87.891 Personal history of nicotine dependence; Z83.3 Family history of diabetes mellitus; Z82.49 Family history of ischemic heart disease and other diseases of the circulatory system; Z79.4 Long term (current) use of insulin
CPT/HCPCS: 36415; 71045; 78278; 80048; 80053; 80061; 82140; 82270; 82550; 82553; 82607; 82728; 82746; 82948; 83540; 83880; 84443; 84466; 84484; 85025; 85045; 86850; 86900; 86920; 93005; 96372; 99284; A9512; J1756; J1817; J3420; J7050; P9016; U0002

== ENCOUNTER 2021-06-15 16:46 | Observation (INO) | payer MEDICARE, OTHER ==
[~2021-06-15] VITALS: Ht 154.9 cm; Wt 156.5 kg
[~2021-06-15 16:46] MED LIST changes: -HUMULIN SQ
[2021-06-15 18:06] LABS: BASOPHILS % 0.5 % (0.0-1.0); EOSINOPHILS # (AUTO) 0.1 (0.0-0.4); EOSINOPHILS % 1.8 % (0.0-6.0); HEMATOCRIT 29.8 % (34.2-44.1); HEMOGLOBIN 8.5 g/dL (12.0-16.0); LYMPHOCYTES # (AUTO) 0.5 (1.0-3.2); LYMPHOCYTES % 12.2 % (18.0-39.1); MEAN CORPUSCULAR HEMOGLOBIN 20.1 pg (28-32); MEAN CORPUSCULAR HGB CONC 28.5 g/dL (31-35); MEAN CORPUSCULAR VOLUME 70.4 fL (81-99); MONOCYTES # (AUTO) 0.3 (0.2-0.8); MONOCYTES % 8.5 % (4.4-11.3); NEUTROPHILS # (AUTO) 2.9 (2.1-6.9); NEUTROPHILS % 75.7 % (38.7-80.0); PLATELET COUNT 120 x10e3/uL (140-360); RED BLOOD COUNT 4.23 x10e6/uL (3.6-5.1); RED CELL DISTRIBUTION WIDTH 15.9 % (11.7-14.4)
[2021-06-15 18:08] LABS: CLARITY,URINE CLEAR (CLEAR); COLOR,URINE YELLOW (YELLOW); KETONES,URINE NEGATIVE (NEGATIVE); LEUKOCYTE ESTERASE ,URINE NEGATIVE (NEGATIVE); NITRITE,URINE NEGATIVE (NEGATIVE); PROTEIN,URINE DIPSTICK NEGATIVE (NEGATIVE); URINE UROBILINOGEN 1 mg/dL (0.2 - 1)
[2021-06-15 18:17] LABS: RBC,URINE 0-5 /HPF (0-5); WBC,URINE (MAN) 0-5 /HPF (0-5)
[2021-06-15 18:18] LABS: BACTERIA,URINE MODERATE /HPF; EPITHELIAL CELLS,URINE MODERATE /LPF; YEAST,URINE MODERATE
[2021-06-15 18:18] LABS: ALBUMIN 3.4 g/dL (3.5-5.0); ALBUMIN/GLOBULIN RATIO 0.9 (0.8-2.0); ANION GAP 17.4 mmol/L (8-16); CALCIUM 9.3 mg/dL (8.4-10.2); CREATININE, SERUM 1.56 mg/dL (0.57-1.11); POTASSIUM 3.4 mmol/L (3.5-5.1)
[2021-06-15] MEDS ORDERED: SODIUM CHLORIDE 0.9% 1000ML 1,000 ML IV ONE (18:30)
[2021-06-15] MEDS ORDERED: INSULIN REGULAR, HUMAN 100 UNIT/1 ML SQ ONE ×2 (18:30→20:00)
[2021-06-15] MEDS ORDERED: INSULIN REGULAR, HUMAN 100 UNIT/1 ML IV ONE (18:30)
[2021-06-15] MEDS ORDERED: SODIUM CHLORIDE 0.9% 1000ML 1,000 ML ONE (18:32)
[2021-06-15] MEDS ORDERED: ACETAMINOPHEN 325 MG TAB PO ONE (20:00)
[2021-06-15] MEDS ORDERED: ACETAMINOPHEN 325 MG TAB ONE (20:04)
[2021-06-15] MEDS ORDERED: DEXTROSE 50% SYRINGE 50 ML IV PRN (21:45)
[2021-06-15] MEDS ORDERED: ONDANSETRON HCL INJ 2MG/ML 2ML 2 MG/ML VIAL IV PRN (21:45)
[2021-06-16] VITALS (7 sets, daily range): BP systolic 112–124; BP diastolic 49–65
[2021-06-16 07:42] LABS: BASOPHILS % 0.6 % (0.0-1.0); EOSINOPHILS # (AUTO) 0.1 (0.0-0.4); HEMATOCRIT 30.8 % (34.2-44.1); HEMOGLOBIN 8.7 g/dL (12.0-16.0); LYMPHOCYTES # (AUTO) 0.9 (1.0-3.2); LYMPHOCYTES % 18.8 % (18.0-39.1); MEAN CORPUSCULAR HEMOGLOBIN 20.1 pg (28-32); MEAN CORPUSCULAR HGB CONC 28.2 g/dL (31-35); MEAN CORPUSCULAR VOLUME 71.3 fL (81-99); MONOCYTES # (AUTO) 0.5 (0.2-0.8); MONOCYTES % 10.3 % (4.4-11.3); NEUTROPHILS # (AUTO) 3.1 (2.1-6.9); NEUTROPHILS % 67.1 % (38.7-80.0); PLATELET COUNT 133 x10e3/uL (140-360); RED BLOOD COUNT 4.32 x10e6/uL (3.6-5.1); RED CELL DISTRIBUTION WIDTH 15.7 % (11.7-14.4)
[2021-06-16 08:03] LABS: ALBUMIN 3.1 g/dL (3.5-5.0); ALBUMIN/GLOBULIN RATIO 0.9 (0.8-2.0); ANION GAP 13.7 mmol/L (8-16); CALCIUM 9.4 mg/dL (8.4-10.2); CREATININE, SERUM 1.15 mg/dL (0.57-1.11); POTASSIUM 3.7 mmol/L (3.5-5.1)
[2021-06-16] MEDS ORDERED: HUMULIN SQ (09:09)
[2021-06-16] MEDS ORDERED: INSULIN REGULAR SQ SCH (10:00)
[2021-06-16] MEDS ORDERED: TRAMADOL HCL 50 MG TAB PO PRN (10:00)
[2021-06-16] MEDS ORDERED: APIXABAN 5 MG TABLET PO SCH (10:15)
[2021-06-16] MEDS ORDERED: GABAPENTIN 400 MG CAP PO SCH (15:00)
[2021-06-16] MEDS ORDERED: LACTULOSE SYRUP 20 GM/30 ML UDC PO SCH (15:00)
[2021-06-16] MEDS ORDERED: PANTOPRAZOLE SOD 40 MG TABEC PO SCH (17:00)
[2021-06-16] MEDS ORDERED: RIFAXIMIN 550 MG TABLET PO SCH (17:00)
[2021-06-16] MEDS ORDERED: FUROSEMIDE 40 MG TAB PO SCH (17:00)
[2021-06-17] MEDS ORDERED: NON-FORMULARY MEDICATION (Dapagliflozin Propanediol (Farxiga) 5 MG) PO SCH (09:00)
[2021-06-17] MEDS ORDERED: LISINOPRIL 2.5 MG TAB PO SCH (09:00)
== END 2021-06-16 11:45 | disposition home or self-care (01) ==
LOC: ER 17:14 → ERHOLD 21:48 → MED/SURG2 06-16 01:09
DX: E11.65 Type 2 diabetes mellitus with hyperglycemia (principal); D64.89 Other specified anemias; I10 Essential (primary) hypertension; J44.9 Chronic obstructive pulmonary disease, unspecified; I25.2 Old myocardial infarction; M19.90 Unspecified osteoarthritis, unspecified site; Z86.718 Personal history of other venous thrombosis and embolism; Z79.01 Long term (current) use of anticoagulants; Z20.822 Contact with and (suspected) exposure to COVID-19
CPT/HCPCS: 36415 ×2; 80053 ×2; 81001; 82948 ×2; 85025 ×2; 94799; 99284; G0378 ×2; J1817; J7030; U0002

== ENCOUNTER → 2021-06-15 | Outpatient (CLI) | payer MEDICARE, OTHER ==
[~2021-06-15] MED LIST changes: +FARXIGA5 MG PO; +HUMALOG KW200 UNIT/1 SQ; +HUMULIN SQ; +LACTULOSE20 GM/30 M PO
== END ==
LOC: US 08:23
PROVIDERS: ATTEND Internal Medicine Gastroenterology
DX: K74.60 Unspecified cirrhosis of liver (principal); K72.90 Hepatic failure, unspecified without coma; D50.9 Iron deficiency anemia, unspecified
CPT/HCPCS: 76700

== ENCOUNTER 2021-10-20 17:23 | Emergency (ER) | payer MEDICARE, OTHER ==
[~2021-10-20] VITALS: Ht 154.9 cm; Wt 156.5 kg
[~2021-10-20 17:23] MED LIST changes: +HUMULIN SQ
[2021-10-20 18:52] LABS: BASOPHILS % 0.5 % (0.0-1.0); EOSINOPHILS # (AUTO) 0.1 (0.0-0.4); EOSINOPHILS % 1.9 % (0.0-6.0); HEMATOCRIT 30.2 % (34.2-44.1); HEMOGLOBIN 8.7 g/dL (12.0-16.0); LYMPHOCYTES # (AUTO) 0.5 (1.0-3.2); LYMPHOCYTES % 10.8 % (18.0-39.1); MEAN CORPUSCULAR HEMOGLOBIN 21.9 pg (28-32); MEAN CORPUSCULAR HGB CONC 28.8 g/dL (31-35); MEAN CORPUSCULAR VOLUME 76.1 fL (81-99); MONOCYTES # (AUTO) 0.3 (0.2-0.8); MONOCYTES % 7.9 % (4.4-11.3); NEUTROPHILS # (AUTO) 3.3 (2.1-6.9); NEUTROPHILS % 78.7 % (38.7-80.0); PLATELET COUNT 147 x10e3/uL (140-360); RED BLOOD COUNT 3.97 x10e6/uL (3.6-5.1); RED CELL DISTRIBUTION WIDTH 23.1 % (11.7-14.4)
[2021-10-20 18:57] LABS: INR 1.18
[2021-10-20 18:58] LABS: AMPHETAMINES SCREEN,URINE NEGATIVE (NEGATIVE); BENZODIAZEPINES SCREEN,URINE NEGATIVE (NEGATIVE); CLARITY,URINE CLEAR (CLEAR); COLOR,URINE YELLOW (YELLOW); KETONES,URINE NEGATIVE (NEGATIVE); LEUKOCYTE ESTERASE ,URINE NEGATIVE (NEGATIVE); NITRITE,URINE NEGATIVE (NEGATIVE); PARTIAL THROMBOPLASTIN TIME 36.5 seconds (23.8-35.5); PHENCYCLIDINE SCREEN,URINE NEGATIVE (NEGATIVE); PROTEIN,URINE DIPSTICK NEGATIVE (NEGATIVE); URINE UROBILINOGEN 0.2 mg/dL (0.2 - 1)
[2021-10-20 19:04] LABS: ALBUMIN 2.9 g/dL (3.5-5.0); ALBUMIN/GLOBULIN RATIO 0.9 (0.8-2.0); ANION GAP 16.5 mmol/L (8-16); CALCIUM 8.8 mg/dL (8.4-10.2); CREATININE, SERUM 1.57 mg/dL (0.57-1.11); POTASSIUM 4.5 mmol/L (3.5-5.1)
[2021-10-20 19:13] LABS: BACTERIA,URINE RARE /HPF; EPITHELIAL CELLS,URINE RARE /LPF; RBC,URINE 0-5 /HPF (0-5); WBC,URINE (MAN) 0-5 /HPF (0-5)
[2021-10-20] MEDS ORDERED: SODIUM CHLORIDE 0.9% 1000ML 1,000 ML IV SCH (19:45)
[2021-10-20] MEDS ORDERED: SODIUM CHLORIDE 0.9% IV ONE (20:30)
[2021-10-20] MEDS ORDERED: IOPAMIDOL 370 MG/ML 100 ML INFUS..BTL INJ ONE (20:53)
[2021-10-20] MEDS ORDERED: SODIUM CHLORIDE 0.9% 100 ML ONE (20:53)
[2021-10-20 23:54] VITALS: BP 102/65
== END 2021-10-21 00:08 | disposition home or self-care (01) ==
LOC: ER 17:32
DX: K62.5 Hemorrhage of anus and rectum (principal); R10.11 Right upper quadrant pain; E11.65 Type 2 diabetes mellitus with hyperglycemia; R60.9 Edema, unspecified
CPT/HCPCS: 36415; 74174; 80053; 80307; 81001; 85025; 85610; 85730; 99284; J7030; J7050; Q9967

== ENCOUNTER 2021-10-26 20:44 | Emergency (ER) | payer MEDICARE, OTHER ==
[~2021-10-26] VITALS: Ht 154.9 cm; Wt 156.5 kg
[2021-10-26] MEDS ORDERED: ONDANSETRON HCL INJ 2MG/ML 2ML 2 MG/ML VIAL IV STA ×2 (21:17→23:50)
[2021-10-26] MEDS ORDERED: SODIUM CHLORIDE 0.9% 1000ML 1,000 ML ONE (21:26)
[2021-10-26] MEDS ORDERED: SODIUM CHLORIDE 0.9% 1000ML 1,000 ML IV ONE (21:30)
[2021-10-26] MEDS ORDERED: ONDANSETRON HCL INJ 2MG/ML 2ML 2 MG/ML VIAL ONE (21:31)
[2021-10-26 21:40] LABS: ALANINE AMINOTRANSFERASE 24 IU/L (0-55); ALBUMIN 3.1 g/dL (3.5-5.0); ALBUMIN/GLOBULIN RATIO 0.9 (0.8-2.0); ALKALINE PHOSPHATASE 80 IU/L (40-150); ANION GAP 18.9 mmol/L (8-16); BLOOD UREA NITROGEN 51 mg/dL (7-26); BUN/CREATININE RATIO 25 (6-25); CALCIUM 8.4 mg/dL (8.4-10.2); CARBON DIOXIDE 18 mmol/L (22-29); CHLORIDE 95 mmol/L (98-107); CREATINE KINASE 120 IU/L (29-168); CREATININE, SERUM 2.04 mg/dL (0.57-1.11); EST GLOMERULAR FILTRATION RATE 25 ML/MIN (60-); GLUCOSE 349 mg/dL (74-118); POTASSIUM 3.9 mmol/L (3.5-5.1); SODIUM 128 mmol/L (136-145)
[2021-10-26 21:44] LABS: BASOPHILS # (AUTO) 0.1 (0.0-0.1); BASOPHILS % 0.5 % (0.0-1.0); EOSINOPHILS # (AUTO) 0.2 (0.0-0.4); EOSINOPHILS % 1.8 % (0.0-6.0); LYMPHOCYTES % 9.9 % (18.0-39.1); MEAN CORPUSCULAR HEMOGLOBIN 22.5 pg (28-32); MEAN CORPUSCULAR HGB CONC 29.6 g/dL (31-35); MEAN CORPUSCULAR VOLUME 76.1 fL (81-99); MONOCYTES # (AUTO) 0.7 (0.2-0.8); MONOCYTES % 7.6 % (4.4-11.3); NEUTROPHILS # (AUTO) 7.8 (2.1-6.9); NEUTROPHILS % 79.4 % (38.7-80.0); PLATELET COUNT 178 x10e3/uL (140-360); RED BLOOD COUNT 3.55 x10e6/uL (3.6-5.1)
[2021-10-27] MEDS ORDERED: ACETAMINOPHEN 325 MG TAB PO ONE
[2021-10-27] MEDS ORDERED: ACETAMINOPHEN 325 MG TAB ONE (00:13)
[2021-10-27 00:15] VITALS: BP 99/52
== END 2021-10-27 00:01 | disposition home or self-care (01) ==
LOC: ER 21:27
DX: R11.2 Nausea with vomiting, unspecified (principal); E86.0 Dehydration; R06.02 Shortness of breath; R53.1 Weakness; E11.65 Type 2 diabetes mellitus with hyperglycemia; I10 Essential (primary) hypertension; J44.9 Chronic obstructive pulmonary disease, unspecified; I50.9 Heart failure, unspecified; I25.10 Atherosclerotic heart disease of native coronary artery without angina pectoris; E78.5 Hyperlipidemia, unspecified; K21.9 Gastro-esophageal reflux disease without esophagitis; I25.2 Old myocardial infarction; Z85.43 Personal history of malignant neoplasm of ovary; Z85.42 Personal history of malignant neoplasm of other parts of uterus
CPT/HCPCS: 36415; 80053; 82550; 82553; 84484; 85025; 93005; 99283; J2405 ×2; J7030

== ENCOUNTER → 2021-10-27 | Day surgery (SDC) | payer MEDICARE, OTHER ==
[~2021-10-27] MED LIST changes: +EPHEDRINE SULFATE INJ 50 MG/ML VIAL ONE; +EPINEPHRINE HCL 1:1000 1ML 1 MG/ML AMP ONE; +FENTANYL CITRATE/PF 100MCG/2 ML INJ ONE; +METOCLOPRAMIDE HCL 10 MG/2ML VIAL ONE; +MIDAZOLAM HCL 2 MG/2 ML VIAL ONE; +PHENYLEPHRINE HCL 1% 10 MG/ML VIAL ONE; +PROPOFOL IV EMULSION 10 MG/ML 20 ML VIAL ONE
[2021-10-27 13:00] VITALS: BP 100/54
== END | disposition home or self-care (01) ==
LOC: OR 08:05
PROVIDERS: ATTEND Internal Medicine Gastroenterology
DX: K29.70 Gastritis, unspecified, without bleeding (principal); Z86.010 Personal history of colon polyps; Q27.33 Arteriovenous malformation of digestive system vessel; K74.60 Unspecified cirrhosis of liver; I85.10 Secondary esophageal varices without bleeding; K76.6 Portal hypertension; K31.89 Other diseases of stomach and duodenum; K21.9 Gastro-esophageal reflux disease without esophagitis; K58.9 Irritable bowel syndrome, unspecified; K57.30 Diverticulosis of large intestine without perforation or abscess without bleeding; K64.8 Other hemorrhoids; Z71.3 Dietary counseling and surveillance; D64.89 Other specified anemias; I10 Essential (primary) hypertension; E66.01 Morbid (severe) obesity due to excess calories; E11.9 Type 2 diabetes mellitus without complications; J44.9 Chronic obstructive pulmonary disease, unspecified; I25.2 Old myocardial infarction; F41.9 Anxiety disorder, unspecified; Z01.810 Encounter for preprocedural cardiovascular examination; Z01.812 Encounter for preprocedural laboratory examination; Z20.822 Contact with and (suspected) exposure to COVID-19; Z79.4 Long term (current) use of insulin; Z79.02 Long term (current) use of antithrombotics/antiplatelets; Z79.899 Other long term (current) drug therapy; Z68.43 Body mass index [BMI] 50.0-59.9, adult; Z86.718 Personal history of other venous thrombosis and embolism; Z80.0 Family history of malignant neoplasm of digestive organs
CPT/HCPCS: 36415; 43270; 45388; 82948; 93005; C9113; J0171; J2250; J2370; J2704; J2765; J3010; U0002; 43239; 43255; 45378